=== PATIENT | male | born 1955 | race Caucasian/White ===

== ENCOUNTER 2017-09-28 08:39 | Inpatient (IN) | payer BC, OTHER ==
[~2017-09-28] VITALS: Ht 172.7 cm; Wt 116.5 kg
[2017-09-28] VITALS (11 sets, daily range): BP systolic 141–220; BP diastolic 81–122; PULSE 62–173; RESP 18–20; TEMP 97.8–98.3; O2SAT 96–98
[~2017-09-28 08:39] MED LIST: ADVA100A; EZET10; GLIP5; GLUCTAB; LISI2.5T3
[2017-09-28] MEDS ORDERED: LEVO25TA4 PO ×2 (08:53)
[2017-09-28] MEDS ORDERED: LISI2.5T3 PO ×2 (08:53)
[2017-09-28] MEDS ORDERED: STATIN ×2 (08:53)
[2017-09-28] MEDS ORDERED: ADENOSINE IV SOLN 3 MG/ML 2 ML VIAL ONE ×2 (09:00)
[2017-09-28] MEDS ORDERED: ADENOSINE IV SOLN 3 MG/ML 2 ML VIAL IV PUSH ONE ×2 (09:15)
[2017-09-28] MEDS ORDERED: LABETALOL HCL 100 MG/20 ML VIAL IV PUSH ONE ×2 (09:15)
[2017-09-28] MEDS ORDERED: ASPIRIN 325 MG TAB PO ONE ×2 (09:15)
[2017-09-28] MEDS ORDERED: SODIUM CHLORIDE 0.9% FLUSH 10 ML FLUSH IVF PRN ×2 (09:15)
--- NOTE | 2017-09-28 09:22 | PD ---
HPI Chief Complaint: Cardiac Complaint Time Seen by Provider: 08:53 Travel History International Travel<30 days: No Contact w/Intl Traveler<30days: No Traveled to known affect area: No History of Present Illness HPI This patient was walking on the beach this morning. Around 8:00 he developed chest pain and a sense of racing heartbeat. Chest pain lasted about 30 minutes and resolved. He arrived here around 9 AM with tachycardia 170. He is not having active pain. He had no presyncopal symptoms. He has history of AR and had bypass surgery 9 years ago. He is noncompliant with therapy. He does not take his daily aspirin or other medications regularly. Cigars. 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 Duration of symptoms 1 hour. Symptoms moderately severe. No alleviating factors. No exacerbating factors. Not having cough or shortness of breath. PFSH Past Medical History High Cholesterol: Yes Hypertension: Yes Myocardial Infarction: Yes Thyroid Disease: Yes Past Surgical History Cardiac Surgery: Yes (QUADRUPLE BYPASS) Social History Alcohol Use: Yes Tobacco Use: No Substance Use: No Allergies-Medications (Allergen,Severity, Reaction): Coded Allergies: No Known Allergies (Verified Allergy, Mild, 09/28/17) Reported Meds & Prescriptions Reported Meds & Active Scripts Active Reported Levothyroxine (Levothyroxine Sodium) 25 Mcg Tab Unknown Dose PO DAILY [Statin] Lisinopril 2.5 Mg Tab Unknown Dose PO DAILY Review of Systems General / Constitutional: No: Fever Eyes: No: Visual changes HENT: No: Headaches Cardiovascular: Positive: Chest Pain or Discomfort, Palpitations, Tachycardia Respiratory: No: Shortness of Breath Gastrointestinal: No: Abdominal Pain Genitourinary: No: Dysuria Musculoskeletal: No: Pain Skin: No Rash Neurologic: No: Weakness Psychiatric: No: Depression Endocrine: No: Polydipsia Hematologic/Lymphatic: No: Easy Bruising Physical Exam Narrative GENERAL: Well-nourished, well-developed patient with a significant tachycardia . SKIN: Focused skin assessment reveals no rash and nodules. Skin is Warm and dry. HEAD: Atraumatic. Normocephalic. EYES: Pupils equal and round. No scleral icterus. No injection or drainage. ENT: No nasal bleeding or discharge. Mucous membranes pink and moist. NECK: Trachea midline. No JVD. CARDIOVASCULAR: Regular rate and rhythm. No murmur appreciated. He has extremely rapid tachycardia of 170 RESPIRATORY: No accessory muscle use. Clear to auscultation. Breath sounds equal bilaterally. GASTROINTESTINAL: Abdomen soft, non-tender, nondistended. Hepatic and splenic margins not palpable. MUSCULOSKELETAL: No obvious deformities. No clubbing. No cyanosis. No edema. NEUROLOGICAL: Awake and alert. No obvious cranial nerve deficits. Motor grossly within normal limits. Normal speech. PSYCHIATRIC: Appropriate mood and affect; insight and judgment normal. Data Data Last Documented VS Vital Signs Date Time Temp Pulse Resp B/P (MAP) Pulse Ox O2 Delivery O2 Flow Rate FiO2 09/28/17 11:07 65 18 148/82 (104) 98 Nasal Cannula 2.00 09/28/17 08:49 97.8 Orders Orders Adenosine Inj (Adenocard Inj) (09/28/17 09:00) Labetalol Inj (Trandate Inj) (09/28/17 09:15) Electrocardiogram (09/28/17 09:08) Basic Metabolic Panel (Bmp) (09/28/17 09:08) Ckmb (Isoenzyme) Profile (09/28/17 09:08) Complete Blood Count With Diff (09/28/17 09:08) Magnesium (Mg) (09/28/17 09:08) Prothrombin Time / Inr (Pt) (09/28/17 09:08) Act Partial Throm Time (Ptt) (09/28/17 09:08) Troponin I (09/28/17 09:08) Chest, Single Ap (09/28/17 09:08) Ecg Monitoring (09/28/17 09:08) Bilateral Bp Monitoring (09/28/17 09:08) Iv Access Insert/Monitor (09/28/17 09:08) Oximetry (09/28/17 09:08) Aspirin (Aspirin) (09/28/17 09:15) Sodium Chloride 0.9% Flush (Ns Flush) (09/28/17 09:15) Adenosine Inj (Adenocard Inj) (09/28/17 09:15) Thyroid Stimulating Hormone (09/28/17 11:03) Hepatic Functional Panel (09/28/17 11:03) Metoprolol Tartrate (Lopressor) (09/28/17 12:00) Echo 2d Comp With Doppler (09/28/17 ) Hemoglobin (Hgb) A1c (09/28/17 11:05) Admit Order (Ed Use Only) (09/28/17 11:15) Labs Laboratory Tests Test 09/28/17 09:10 White Blood Count 8.8 TH/MM3 Red Blood Count 5.03 MIL/MM3 Hemoglobin 15.9 GM/DL Hematocrit 46.0 % Mean Corpuscular Volume 91.5 FL Mean Corpuscular Hemoglobin 31.6 PG Mean Corpuscular Hemoglobin Concent 34.5 % Red Cell Distribution Width 13.1 % Platelet Count 205 TH/MM3 Mean Platelet Volume 8.3 FL Neutrophils (%) (Auto) 50.6 % Lymphocytes (%) (Auto) 35.8 % Monocytes (%) (Auto) 10.1 % Eosinophils (%) (Auto) 2.7 % Basophils (%) (Auto) 0.8 % Neutrophils # (Auto) 4.4 TH/MM3 Lymphocytes # (Auto) 3.2 TH/MM3 Monocytes # (Auto) 0.9 TH/MM3 Eosinophils # (Auto) 0.2 TH/MM3 Basophils # (Auto) 0.1 TH/MM3 CBC Comment DIFF FINAL Differential Comment Prothrombin Time 10.7 SEC Prothromb Time International Ratio 1.0 RATIO Activated Partial Thromboplast Time 30.1 SEC Blood Urea Nitrogen 17 MG/DL Creatinine 0.80 MG/DL Random Glucose 249 MG/DL Calcium Level 9.0 MG/DL Magnesium Level 2.1 MG/DL Sodium Level 137 MEQ/L Potassium Level 4.0 MEQ/L Chloride Level 103 MEQ/L Carbon Dioxide Level 25.3 MEQ/L Anion Gap 9 MEQ/L Estimat Glomerular Filtration Rate 97 ML/MIN Total Creatine Kinase 96 U/L Troponin I LESS THAN 0.02 NG/ML MDM Medical Decision Making Medical Screen Exam Complete: Yes Emergency Medical Condition: Yes Medical Record Reviewed: Yes Differential Diagnosis SVT, A. fib with RVR, ventricular tachycardia Narrative Course I have reviewed the patient's electronic medical record. There are no prior EKGs to compare Patient arrives with significant arrhythmia and chest pain complaint in the setting of significant CAD with bypass history IV placed Extended cardiac monitoring reveals sinus tachycardia at 170 with regular rhythm I reviewed his EKG which shows regular tachycardia, narrow complex, I think this is SVT I gave him 6 mg IV adenosine Within about 15 seconds he converted to a sinus rhythm I repeated a second EKG which shows a sinus rhythm at 92 I reviewed the chest x-ray which shows sternal wires but otherwise normal CBC is normal Metabolic profile is normal CK is normal Troponin is normal Coagulation studies are normal I gave him aspirin and a dose of IV labetalol for systolic blood pressure of 220 On reassessment his blood pressures in the 140s. He remains in sinus rhythm No longer critical requires admission to telemetry for evaluation of chest pain in the setting of significant CAD as well as arrhythmia I reviewed with the hospitalist will admit Critical Care Narrative Aggregate critical care time was 34 minutes. Time to perform other separately billable procedures was not included in the critical care time. My time did not include minutes spent treating any other patients simultaneously or on activities that did not directly contribute to the patient's treatment. The services I provided to this patient were to treat and/or prevent clinically significant deterioration that could result in: Cardiopulmonary arrest, myocardial damage, heart failure I provided critical care services requiring my management, as noted below: Chart data review, documentation time, medication orders and management, vital sign assessments/reviewing monitor data, ordering and reviewing lab tests, ordering and interpreting/reviewing x-rays and diagnostic studies, care of the patient and discussion of the patient with the admitting physicians. Diagnosis Primary Impression: Chest pain Qualified Codes: I20.9 - Angina pectoris, unspecified Additional Impressions: SVT (supraventricular tachycardia) Coronary artery disease due to calcified coronary lesion Admitting Information Admitting Physician Requests: Cash Mcbride MD Sep 28, 2017 09:22
[2017-09-28 09:23] LABS: AUTOMATED NEUTROPHIL # 4.4 TH/MM3 (1.8-7.7); BASOPHIL # 0.1 TH/MM3 (0-0.2); BASOPHIL % 0.8 % (0.0-2.0); EOSINOPHIL # 0.2 TH/MM3 (0-0.4); EOSINOPHIL % 2.7 % (0.0-4.0); HEMOGLOBIN 15.9 GM/DL (13.0-17.0); LYMPH % 35.8 % (9.0-44.0); LYMPHOCYTE # 3.2 TH/MM3 (1.0-4.8); MEAN CELL VOLUME 91.5 FL (80.0-100.0); MEAN CORPUSCULAR HEMOGLOBIN 31.6 PG (27.0-34.0); MEAN CORPUSCULAR HGB CONC 34.5 % (32.0-36.0); MEAN PLATELET VOLUME 8.3 FL (7.0-11.0); MONO % 10.1 % (0.0-8.0); MONOCYTE # 0.9 TH/MM3 (0-0.9); NEUT % 50.6 % (16.0-70.0); PLATELET COUNT 205 TH/MM3 (150-450); RED BLOOD COUNT 5.03 MIL/MM3 (4.50-5.90); RED CELL DISTRIBUTION WIDTH 13.1 % (11.6-17.2); WHITE BLOOD COUNT 8.8 TH/MM3 (4.0-11.0)
--- NOTE | 2017-09-28 09:35 | RADRPT ---
EXAM DATE/TIME: 09/28/2017 09:17 [facility] COMPARISON: No previous studies available for comparison. INDICATIONS : Chest pain today MEDICAL HISTORY : Diabetes mellitus type II. SURGICAL HISTORY : CABG. ENCOUNTER: Initial ACUITY: 1 day PAIN SCORE: 3/10 LOCATION: Bilateral chest FINDINGS: A single view of the chest demonstrates the lungs to be symmetrically aerated without evidence of mas s, infiltrate or effusion. The cardiomediastinal contours are unremarkable. Osseous structures are intact. CONCLUSION: Normal examination. Numerous sternal wires. Onesimo Valdez MD on September 28, 2017 at 9:32 Board Certified Radiologist. This report was verified electronically.
[2017-09-28 09:43] LABS: PROTHROMBIN TIME - PATIENT 10.7 SEC (9.8-11.6)
[2017-09-28 09:49] LABS: BICARBONATE 25.3 MEQ/L (21.0-32.0); GLUCOSE,RANDOM 249 MG/DL (74-106); MAGNESIUM 2.1 MG/DL (1.5-2.5)
[2017-09-28 09:53] LABS: GLOMERULAR FILTRATION RATE 97 ML/MIN (>89)
[2017-09-28 09:54] LABS: CHLORIDE 103 MEQ/L (98-107); SODIUM (NA) 137 MEQ/L (136-145)
[2017-09-28 09:55] LABS: BLOOD UREA NITROGEN 17 MG/DL (7-18)
[2017-09-28 09:57] LABS: TROPONIN I LESS THAN 0.02 NG/ML (0.02-0.05)
[2017-09-28] MEDS ORDERED: MAGNESIUM HYDROXIDE SUSP 30 ML CUP PO PRN ×2 (11:15)
[2017-09-28] MEDS ORDERED: ONDANSETRON HCL 4 MG/2 ML VIAL IVP PRN ×2 (11:15)
[2017-09-28] MEDS ORDERED: NALOXONE HCL 0.4 MG/ML AMP IV PUSH PRN ×2 (11:15)
[2017-09-28] MEDS ORDERED: BISACODYL 10 MG SUPP RECTAL PRN ×2 (11:15)
[2017-09-28] MEDS ORDERED: ACETAMINOPHEN 325 MG TAB PO PRN ×2 (11:15)
[2017-09-28] MEDS ORDERED: SENNOSIDES 8.6 MG TAB PO PRN ×2 (11:15)
[2017-09-28] MEDS ORDERED: LACTULOSE SYRUP 20 GM/30 ML CUP PO PRN ×2 (11:15)
[2017-09-28] MEDS ORDERED: SODIUM CHLORIDE 0.9% FLUSH 10 ML FLUSH IV FLUSH PRN ×2 (11:15)
[2017-09-28 11:32] LABS: ALBUMIN 3.8 GM/DL (3.4-5.0)
[2017-09-28 11:34] LABS: DIRECT BILIRUBIN ADULT 0.2 MG/DL (0.0-0.2)
[2017-09-28 11:36] LABS: INDIRECT BILIRUBIN 0.9 MG/DL (0.0-0.8); TOTAL BILIRUBIN ADULT 1.1 MG/DL (0.2-1.0); TOTAL PROTEIN 7.9 GM/DL (6.4-8.2)
[2017-09-28] MEDS: METOPROLOL TARTRATE 25 MG TAB PO SCH ×4 (11:55→18:53)
[2017-09-28] MEDS ORDERED: ENOXAPARIN SODIUM 40 MG/0.4 ML SYRINGE SQ SCH ×2 (12:00)
--- NOTE | 2017-09-28 13:17 | EKG ---
Date Performed: 09/28/2017 Time Performed: 08:46:36 PTAGE: 62 years EKG: SUPRAVENTRICULAR TACHYCARDIA NONSPECIFIC INTRAVENTRICULAR CONDUCTION DELAY NONSPECIFIC ST A BNORMALITY ABNORMAL ECG PREVIOUS TRACING : 08/19/2007 14.11 Compared to previous tracing, supraventricular tachycardia has replaced Sinus rhythm , heart rate has increased, nonspecific ST abnormality is now present. DOCTOR: Cornelius Fitch Interpretating Date/Time 09/28/2017 13:16:56
[2017-09-28] MEDS ORDERED: SITA50 PO ×2 (15:07)
[2017-09-28] MEDS ORDERED: CHOL1CAP61 PO ×2 (15:07)
[2017-09-28] MEDS ORDERED: GLIM4TAB PO ×2 (15:07)
[2017-09-28] MEDS ORDERED: METO25TA3 PO ×2 (15:07)
[2017-09-28] MEDS ORDERED: SIMV80TA PO ×2 (15:07)
[2017-09-28] MEDS ORDERED: LEVO150T7 PO ×2 (15:14)
--- NOTE | 2017-09-28 15:51 | EKG ---
Date Performed: 09/28/2017 Time Performed: 09:11:38 PTAGE: 62 years EKG: Sinus rhythm NORMAL ECG PREVIOUS TRACING : 09/28/2017 08.46 Compared to previous tracing, sinus rhythm has replaced sup raventricular tachycardia. DOCTOR: Cornelius Fitch Interpretating Date/Time 09/28/2017 15:49:53
--- NOTE | 2017-09-28 16:06 | HHI.HP ---
[facility] Service [facility] Primary Care Physician Malik Jordan D.O. Admission Diagnosis Chest pain, CAD,SVT Diagnoses: (1) Chest pain Diagnosis: Secondary (2) SVT (supraventricular tachycardia) Diagnosis: Principal Chief Complaint: Chest pain Travel History International Travel<30 Days: No Contact w/Intl Traveler <30 Da: No Traveled to Known Affected Are: No History of Present Illness Written by Mima Hodges, acting as scribe for Dr. Cruz on 09/28/17 at 15: 57. Mr. Duong is a 62-year-old male patient with a known medical history of hypercholesteremia, hypertension and thyroid disease who presented to the ED with complaints of palpitations. Patient states that he was out walking the dog and all of a sudden he noticed his heart racing. He states his heart will beat fast and then will randomly go away. He states that this has happened often over the years but has become more frequent occurring weekly for the past couple weeks. Denies any recent illness including fever, chills, cough, headache , dizziness, abdominal pain, n/v/d or dysuria. Patient admits to having a quadruple bypass 9 years ago. He is noncompliant with therapy, states he has forgets to take his aspirin. Admits to smoking 1 cigar a night. 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 Review of Systems Constitutional: DENIES: Fever, Chills, Dizziness Endocrine: DENIES: Polyuria Eyes: DENIES: Blurred vision, Eye pain Ears, nose, mouth, throat: DENIES: Throat pain Respiratory: DENIES: Cough, Shortness of breath Cardiovascular: COMPLAINS OF: Chest pain, Palpitations Gastrointestinal: DENIES: Abdominal pain, Black stools, Constipation, Nausea, Vomiting Genitourinary: DENIES: Dysuria Musculoskeletal: DENIES: Joint pain Psychiatric: DENIES: Anxiety Except as stated in HPI: all other systems reviewed are Neg Past Family Social History Past Medical History Hyperlipidemia Hypertension Thyroid disease CAD with history of CABG, quadruple bypass Past Surgical History CABG Quadruple bypass Reported Medications Active Reported Levothyroxine (Levothyroxine Sodium) 150 Mcg Tab 150 Mcg PO DAILY Metoprolol Tartrate 25 Mg Tab 25 Mg PO DAILY Januvia (Sitagliptin Phosphate) 50 Mg Tab 50 Mg PO DAILY Glimepiride 4 Mg Tab 4 Mg PO BIDAC Vitamin D3 Ultra Strength (Cholecalciferol) 5,000 Unit Cap 5,000 Units PO DAILY Simvastatin 80 Mg Tab 80 Mg PO DAILY Allergies: Coded Allergies: No Known Allergies (Verified Allergy, Mild, 09/28/17) Active Ordered Medications Current Medications Medications (Trade) Dose Ordered Sig/Mia Route Start Time Stop Time Status Last Admin (Lopressor) 25 mg Q8HR PO 09/28/17 12:00 09/28/17 11:55 (NS Flush) 2 ml UNSCH PRN IV FLUSH 09/28/17 11:15 (NS Flush) 2 ml BID IV FLUSH 09/28/17 21:00 (Tylenol) 650 mg Q4H PRN PO 09/28/17 11:15 (Zofran Inj) 4 mg Q6H PRN IVP 09/28/17 11:15 (Lovenox Inj) 40 mg Q24H SQ 09/28/17 12:00 09/28/17 11:56 (Narcan Inj) 0.4 mg UNSCH PRN IV PUSH 09/28/17 11:15 (Milk Of Magnesia Liq) 30 ml Q12H PRN PO 09/28/17 11:15 (Senokot) 17.2 mg Q12H PRN PO 09/28/17 11:15 (Dulcolax Supp) 10 mg DAILY PRN RECTAL 09/28/17 11:15 (Lactulose Liq) 30 ml DAILY PRN PO 09/28/17 11:15 Family History Father had a history of CHF. Social History Admits to smoking 1 cigar a night. Admits to drinking 2 martinis per night. Denies any illicit drug use. Physical Exam Vital Signs Vital Signs Date Time Temp Pulse Resp B/P (MAP) Pulse Ox O2 Delivery O2 Flow Rate FiO2 09/28/17 12:50 97.8 68 20 166/81 (109) 97 09/28/17 12:14 09/28/17 11:07 65 18 148/82 (104) 98 Nasal Cannula 2.00 09/28/17 10:16 68 20 144/89 (107) 98 Nasal Cannula 2.00 09/28/17 09:25 77 20 141/88 (105) 98 Nasal Cannula 2.00 156/91 (112) 09/28/17 09:23 98 Nasal Cannula 2.00 09/28/17 09:02 114 20 220/109 (146) 98 Nasal Cannula 2.00 09/28/17 09:01 172 20 193/114 (140) 97 2.00 09/28/17 08:49 97.8 173 20 166/122 (137) 97 Physical Exam GENERAL: This is a well-nourished, well-developed male patient sitting on side of bed in no apparent distress. SKIN: No rashes, ecchymoses or lesions. Warm and dry. HEENT: Atraumatic. Normocephalic. Pupils equal round and reactive. Extraocular motions intact. No scleral icterus. No injection or drainage. Nose without bleeding. Airway patent. NECK: Trachea midline. No JVD. Supple. CARDIOVASCULAR: Regular rate and rhythm without murmurs, gallops, or rubs. RESPIRATORY: Clear to auscultation. Breath sounds equal bilaterally. No wheezes , rales, or rhonchi. GASTROINTESTINAL: Abdomen soft, non-tender, nondistended. No guarding. MUSCULOSKELETAL: Extremities without clubbing, cyanosis, or edema. No joint tenderness, effusion, or edema noted. NEUROLOGICAL: Awake and alert. Cranial nerves II through XII intact. Motor and sensory grossly within normal limits. Five out of 5 muscle strength in all muscle groups. Normal speech. Laboratory Laboratory Tests Test 09/28/17 09:10 09/28/17 14:47 White Blood Count 8.8 Red Blood Count 5.03 Hemoglobin 15.9 Hematocrit 46.0 Mean Corpuscular Volume 91.5 Mean Corpuscular Hemoglobin 31.6 Mean Corpuscular Hemoglobin Concent 34.5 Red Cell Distribution Width 13.1 Platelet Count 205 Mean Platelet Volume 8.3 Neutrophils (%) (Auto) 50.6 Lymphocytes (%) (Auto) 35.8 Monocytes (%) (Auto) 10.1 Eosinophils (%) (Auto) 2.7 Basophils (%) (Auto) 0.8 Neutrophils # (Auto) 4.4 Lymphocytes # (Auto) 3.2 Monocytes # (Auto) 0.9 Eosinophils # (Auto) 0.2 Basophils # (Auto) 0.1 CBC Comment DIFF FINAL Differential Comment Prothrombin Time 10.7 Prothromb Time International Ratio 1.0 Activated Partial Thromboplast Time 30.1 Blood Urea Nitrogen 17 Creatinine 0.80 Random Glucose 249 Calcium Level 9.0 Magnesium Level 2.1 Sodium Level 137 Potassium Level 4.0 Chloride Level 103 Carbon Dioxide Level 25.3 Anion Gap 9 Estimat Glomerular Filtration Rate 97 Total Bilirubin 1.1 Direct Bilirubin 0.2 Indirect Bilirubin 0.9 Aspartate Amino Transf (AST/SGOT) 74 Alanine Aminotransferase (ALT/SGPT) 72 Alkaline Phosphatase 124 Total Creatine Kinase 96 Troponin I LESS THAN 0.02 0.35 Total Protein 7.9 Albumin 3.8 Thyroid Stimulating Hormone 3rd Gen 2.670 Result Diagram: 09/28/1710 09/28/17909 Imaging Last Impressions Chest X-Ray 09/28/17907 Signed Impressions: Service Date/Time: Thursday, September 28, 2017 09:17 - CONCLUSION: Normal examination. Numerous sternal wires. MD Airam Anderson VTE Risk Assessment Caprini VTE Risk Assessment: Mod/High Risk (score >= 2) Caprini Risk Assessment Model Point Value = 1 Point Value = 2 Point Value = 3 Point Value = 5 Age 41-60 Minor surgery BMI > 25 kg/m2 Swollen legs Varicose veins or History of unexplained or recurrent spontaneous Oral contraceptives or hormone replacement Sepsis (< 1 month) Serious lung disease, including pneumonia (< 1 month) Abnormal pulmonary function Acute myocardial infarction Congestive heart failure (< 1 month) History of inflammatory bowel disease Medical patient at bed rest Age 61-74 Arthroscopic surgery Major open surgery (> 45 min) Laparoscopic surgery (> 45 min) Malignancy Confined to bed (> 72 hours) Immobilizing plaster cast Central venous access Age >= 75 History of VTE Family history of VTE Factor V Leiden Prothrombin [id number] Lupus anticoagulant Anticardiolipin antibodies Elevated serum homocysteine Heparin-induced thrombocytopenia Other congenital or acquired thrombophilia Stroke (< 1 month) Elective arthroplasty Hip, pelvis, or leg fracture Acute spinal cord injury (< 1 month) Prophylaxis Regimen Total Risk Factor Score Risk Level Prophylaxis Regimen 0-1 Low Early ambulation 2 Moderate Order ONE of the following: *Sequential Compression Device (SCD) *Heparin 5000 units SQ BID 3-4 Higher Order ONE of the following medications: *Heparin 5000 units SQ TID *Enoxaparin/Lovenox 40 mg SQ daily (WT < 150 kg, CrCl > 30 mL/min) *Enoxaparin/Lovenox 30 mg SQ daily (WT < 150 kg, CrCl > 10-29 mL/min) *Enoxaparin/Lovenox 30 mg SQ BID (WT < 150 kg, CrCl > 30 mL/min) AND/OR *Sequential Compression Device (SCD) 5 or more Highest Order ONE of the following medications: *Heparin 5000 units SQ TID (Preferred with Epidurals) *Enoxaparin/Lovenox 40 mg SQ daily (WT < 150 kg, CrCl > 30 mL/min) *Enoxaparin/Lovenox 30 mg SQ daily (WT < 150 kg, CrCl > 10-29 mL/min) *Enoxaparin/Lovenox 30 mg SQ BID (WT < 150 kg, CrCl > 30 mL/min) AND *Sequential Compression Device (SCD) Assessment and Plan Assessment and Plan Mr. Duong is a 62-year-old male patient with a known medical history of hypercholesteremia, hypertension and thyroid disease who presented to the ED with complaints of palpitations. Patient states that he was out walking the dog and all of a sudden he noticed his heart racing. He states his heart will beat fast and then will randomly go away. He states that this has happened often over the years but has become more frequent the past couple weeks. Chest pain and palpitations suspect secondary to SVT CAD with history of quadruple bypass - EKG reviewed showing SVT with HR 169. Adenosine IV given in ED. Second EKG NSR, heart rate controlled with no arrhythmia. Currently on continuous cardiac telemetry, NSR with controlled HR. Continue to monitor. - CXR reviewed showing no acute disease and normal examination. - Serial EKGs and serial troponins have been ordered for ruling out purposes. Initial troponin flat, second set 0.35. Absence of chest pain or pressure at this time. Awaiting third set. Follow. - 2-D ECHO ordered and pending. Follow. - Will start on aspirin daily. Start on Metoprolol 25 mg PO q8hr. - Cardiology consulted, appreciate further input and recommendations. - CBC reviewed essentially unremarkable. Hypertension, chronic: BP significantly elevated on presentation. Given Labetalol IV in ED. Will continue home Lisinopril. Hypothyroidism, chronic: TSH ordered. Will continue home Levothyroxine for now. Hyperlipidemia, chronic: Continue home Simvastatin. Elevated random glucose: Random glucose 249. Hemoglobin a1C ordered and pending. Follow. Patient denies any history of DM. Transaminase suspect secondary to type 2 demand ischemia: Hepatic panel ordered. Will follow. Tobacco use: Encouraged cessation, patient counselled. DVT Prophylaxis: SCDs. Lovenox. This note was transcribed by scribe. Alvarez, Dr. Melissa Cruz personally performed the history, physical exam, and medical decision making; and confirmed the accuracy of the information in the transcribed note. Authenticated by Dr. Melissa Cruz on 09/29/17 at 09:44. Physician Certification 2 Midnight Certification Type: Admission for Inpatient Services Order for Inpatient Services The services are ordered in accordance with Medicare regulations or non- Medicare payer requirements, as applicable. In the case of services not specified as inpatient-only, they are appropriately provided as inpatient services in accordance with the 2-midnight benchmark. Estimated LOS (days): 2 2 days is the estimated time the patient will need to remain in the hospital, assuming treatment plan goals are met and no additional complications. Post-Hospital Plan: Home Problem Qualifiers (1) Chest pain: Qualified Codes: I20.9 - Angina pectoris, unspecified Mima Hodges Sep 28, 2017 16:06 Melissa Cruz MD Sep 29, 2017 09:44
[2017-09-28] MEDS ORDERED: TEMAZEPAM 15 MG CAP PO ONE ×2 (20:30)
[2017-09-28] MEDS: SODIUM CHLORIDE 0.9% FLUSH 10 ML FLUSH IV FLUSH SCH ×2 (20:32)
--- NOTE | 2017-09-28 21:07 | EKG ---
Date Performed: 09/28/2017 Time Performed: 20:47:30 PTAGE: 62 years EKG: Sinus rhythm NONSPECIFIC INTRAVENTRICULAR CONDUCTION DELAY MINIMAL ST DEPRESSION PROLONGED QT INTERVAL ABNORMAL E CG PREVIOUS TRACING : 09/28/2017 15.06 No significant change from previous tracing noted. DOCTOR: Cornelius Fitch Interpretating Date/Time 09/28/2017 21:05:07
--- NOTE | 2017-09-28 21:14 | EKG ---
Date Performed: 09/28/2017 Time Performed: 15:06:53 PTAGE: 62 years EKG: Sinus rhythm INCOMPLETE RIGHT BUNDLE BRANCH BLOCK NONSPECIFIC T-WAVE ABNORMALITY BORDERLINE ECG PREVIOUS TRACING : 09/28/2017 09.11 No significant change from previous tracing noted. DOCTOR: Cornelius Fitch Interpretating Date/Time 09/28/2017 21:12:22
[2017-09-29] VITALS: BP 134/98; PULSE 97; RESP 20; TEMP 98.1; O2SAT 97
[2017-09-29 04:00] VITALS: BP 176/88; PULSE 71; RESP 20; TEMP 97.7; O2SAT 97
[2017-09-29] MEDS: METOPROLOL TARTRATE 25 MG TAB PO SCH ×2 (05:16)
[2017-09-29] MEDS ORDERED: LEVOTHYROXINE SODIUM 150 MCG TAB PO SCH ×2 (06:00)
[2017-09-29 07:37] VITALS: PULSE 57
--- NOTE | 2017-09-29 07:50 | PD.CARD.PN ---
Subjective Subjective Remarks Pt feels well, currently asymptomatic. Objective Medications Administered Medications Medications (Trade) Dose Ordered Sig/Mia Route PRN Reason Start Time Stop Time Status Last Admin Dose Admin Metoprolol Tartrate (Lopressor) 25 mg Q8HR PO 09/28/17 12:00 09/29/17 05:16 Sodium Chloride (NS Flush) 2 ml BID IV FLUSH 09/28/17 21:00 09/28/17 20:32 Enoxaparin Sodium (Lovenox Inj) 40 mg Q24H SQ 09/28/17 12:00 09/28/17 11:56 Levothyroxine Sodium (Synthroid) 150 mcg DAILY@0600 PO 09/29/17 06:00 09/29/17 05:16 Current Medications Medications (Trade) Dose Ordered Sig/Mia Route Start Time Stop Time Status Last Admin (Lopressor) 25 mg Q8HR PO 09/28/17 12:00 09/29/17 05:16 (NS Flush) 2 ml UNSCH PRN IV FLUSH 09/28/17 11:15 (NS Flush) 2 ml BID IV FLUSH 09/28/17 21:00 09/28/17 20:32 (Tylenol) 650 mg Q4H PRN PO 09/28/17 11:15 (Zofran Inj) 4 mg Q6H PRN IVP 09/28/17 11:15 (Lovenox Inj) 40 mg Q24H SQ 09/28/17 12:00 09/28/17 11:56 (Narcan Inj) 0.4 mg UNSCH PRN IV PUSH 09/28/17 11:15 (Milk Of Magnesia Liq) 30 ml Q12H PRN PO 09/28/17 11:15 (Senokot) 17.2 mg Q12H PRN PO 09/28/17 11:15 (Dulcolax Supp) 10 mg DAILY PRN RECTAL 09/28/17 11:15 (Lactulose Liq) 30 ml DAILY PRN PO 09/28/17 11:15 (Ecotrin Ec) 81 mg DAILY PO 09/29/17 08:00 (Synthroid) 150 mcg DAILY@0600 PO 09/29/17 06:00 09/29/17 05:16 (Lipitor) 40 mg DAILY PO 09/29/17 09:00 Vital Signs / I&O Vital Signs Date Time Temp Pulse Resp B/P (MAP) Pulse Ox O2 Delivery O2 Flow Rate FiO2 09/29/17 07:37 57 09/29/17 04:00 97.7 71 20 176/88 (117) 97 09/29/17 00:00 98.1 97 20 134/98 (110) 97 09/28/17 20:00 98.3 62 20 168/85 (112) 96 09/28/17 20:00 74 09/28/17 17:24 65 174/90 (118) 09/28/17 15:50 98.1 65 20 173/90 (117) 09/28/17 12:50 97.8 68 20 166/81 (109) 97 09/28/17 12:14 09/28/17 11:07 65 18 148/82 (104) 98 Nasal Cannula 2.00 09/28/17 10:16 68 20 144/89 (107) 98 Nasal Cannula 2.00 09/28/17 09:25 77 20 141/88 (105) 98 Nasal Cannula 2.00 156/91 (112) 09/28/17 09:23 98 Nasal Cannula 2.00 09/28/17 09:02 114 20 220/109 (146) 98 Nasal Cannula 2.00 09/28/17 09:01 172 20 193/114 (140) 97 2.00 09/28/17 08:49 97.8 173 20 166/122 (137) 97 I/O 09/28/17 09/28/17 09/28/17 09/29/17 09/29/17 09/29/17 07:00 15:00 23:00 07:00 15:00 23:00 Intake Total 631 ml 720 ml Balance 631 ml 720 ml Intake Oral 631 ml 720 ml # Voids 3 # Bowel Movements 0 Physical Exam GENERAL: This is a well-nourished, well-developed patient, in no apparent distress. CARDIOVASCULAR: Regular rate and rhythm without murmurs, gallops, or rubs. RESPIRATORY: Clear to auscultation. Breath sounds equal bilaterally. No wheezes , rales, or rhonchi. GASTROINTESTINAL: Abdomen soft, non-tender, nondistended. Normal active bowel sounds MUSCULOSKELETAL: Extremities without clubbing, cyanosis, or edema. NEURO: Alert & Oriented x4 to person, place, time, situation. Moves all ext x4 Laboratory Laboratory Tests Test 09/28/17 09:10 09/28/17 14:47 09/28/17 20:40 White Blood Count 8.8 TH/MM3 Red Blood Count 5.03 MIL/MM3 Hemoglobin 15.9 GM/DL Hematocrit 46.0 % Mean Corpuscular Volume 91.5 FL Mean Corpuscular Hemoglobin 31.6 PG Mean Corpuscular Hemoglobin Concent 34.5 % Red Cell Distribution Width 13.1 % Platelet Count 205 TH/MM3 Mean Platelet Volume 8.3 FL Neutrophils (%) (Auto) 50.6 % Lymphocytes (%) (Auto) 35.8 % Monocytes (%) (Auto) 10.1 % Eosinophils (%) (Auto) 2.7 % Basophils (%) (Auto) 0.8 % Neutrophils # (Auto) 4.4 TH/MM3 Lymphocytes # (Auto) 3.2 TH/MM3 Monocytes # (Auto) 0.9 TH/MM3 Eosinophils # (Auto) 0.2 TH/MM3 Basophils # (Auto) 0.1 TH/MM3 CBC Comment DIFF FINAL Differential Comment Prothrombin Time 10.7 SEC Prothromb Time International Ratio 1.0 RATIO Activated Partial Thromboplast Time 30.1 SEC Blood Urea Nitrogen 17 MG/DL Creatinine 0.80 MG/DL Random Glucose 249 MG/DL Calcium Level 9.0 MG/DL Magnesium Level 2.1 MG/DL Sodium Level 137 MEQ/L Potassium Level 4.0 MEQ/L Chloride Level 103 MEQ/L Carbon Dioxide Level 25.3 MEQ/L Anion Gap 9 MEQ/L Estimat Glomerular Filtration Rate 97 ML/MIN Total Bilirubin 1.1 MG/DL Direct Bilirubin 0.2 MG/DL Indirect Bilirubin 0.9 MG/DL Aspartate Amino Transf (AST/SGOT) 74 U/L Alanine Aminotransferase (ALT/SGPT) 72 U/L Alkaline Phosphatase 124 U/L Total Creatine Kinase 96 U/L Troponin I LESS THAN 0.02 NG/ML 0.35 NG/ML 0.22 NG/ML Total Protein 7.9 GM/DL Albumin 3.8 GM/DL Thyroid Stimulating Hormone 3rd Gen 2.670 uIU/ML Imaging Last 24 hours Impressions Chest X-Ray 09/28/17 0908 Signed Impressions: Service Date/Time: Thursday, September 28, 2017 09:17 - CONCLUSION: Normal examination. Numerous sternal wires. Onesimo Valdez MD Assessment and Plan Problem List: (1) SVT (supraventricular tachycardia) ICD Codes: I47.1 - Supraventricular tachycardia; I25.84 - Coronary atherosclerosis due to calcified coronary lesion Status: Acute Plan: Currently in sinus rhythm, on BB (2) Troponin level elevated ICD Codes: R74.8 - Abnormal levels of other serum enzymes Plan: Likely due to heart rate/bp; nuc stress pending; if significant ischemia will probably need cath but pt currently says he wouldn't do this as an inpt (3) CAD (coronary artery disease) ICD Codes: I25.10 - Atherosclerotic heart disease of [place] coronary artery without angina pectoris Assessment and Plan Ok to go home and f/u with Dr. doss in 1-2 weeks if nuc stress non-ischemic. Connor Howard MD Sep 29, 2017 07:50
[2017-09-29 08:00] VITALS: BP 176/98; PULSE 56; RESP 16; TEMP 96.2; O2SAT 95
[2017-09-29] MEDS: SODIUM CHLORIDE 0.9% FLUSH 10 ML FLUSH IV FLUSH SCH ×2 (08:22)
[2017-09-29] MEDS: ASPIRIN EC 81 MG TABEC PO SCH ×4 (08:22→09:00)
[2017-09-29] MEDS ORDERED: ATORVASTATIN 40 MG TAB PO SCH ×2 (09:00)
--- NOTE | 2017-09-29 09:41 | MB ---
cc: HERRERA VIDES DO DATE OF CONSULTATION September 28, 2017 REASON FOR CONSULTATION SVT. HISTORY OF PRESENT ILLNESS Rashard Duong is a pleasant 62-year-old male who presented to [facility] Emergency Room on September 28, 2017, with the complaint of palpitations. He states that he was out walking his dog and all of a sudden he noticed his heart racing. He has had a few episodes of this over the past few years but normally would randomly go away after sitting in his car and having the air conditioner below on him. Over the past few weeks he has noticed it more and more and so he presented to the emergency room. Upon arrival he was found to be in SVT and was given adenosine which broke into normal sinus rhythm. He denies chest pain or shortness of breath with the episodes. In speaking to him about his medicines, he should be taking his metoprolol tartrate daily but has not been taking it. During the week from Friday through when he is working, he is on a schedule and takes his medications but on the weekends he tends to this it. He states that he has not taken his metoprolol tartrate since . PAST MEDICAL HISTORY 1. Hyperlipidemia. 2. Hypertension. 3. Thyroid disease. 4. Coronary artery disease. PAST SURGICAL HISTORY CABG x4. ALLERGIES No known drug allergies. MEDICATIONS 1. Zocor 80 mg daily. 2. Metoprolol tartrate 25 mg daily. 3. Januvia 50 mg daily. 4. Glimepiride 4 mg b.i.d. 5. Synthroid 150 mcg daily. FAMILY HISTORY Father had a history of congestive heart failure. Denies sudden cardiac within the family. SOCIAL HISTORY The patient smokes one cigar per night. Admits to drinking two Martinis per night. Denies drug abuse. REVIEW OF SYSTEMS 14-systems were reviewed including osteopathic pertinent positives and negatives above, otherwise negative. PHYSICAL EXAMINATION VITAL SIGNS: Temperature 97.8, heart rate 68, blood pressure 166/80, respirations 20, pulse ox 97% on 2 liters. IN GENERAL: The patient appears well, in no acute distress, alert and awake and oriented x3. Extraocular muscles intact. Mucous membranes moist. NECK: Supple. No JVD at 45 degrees. No carotid bruits heard bilaterally. Carotid upstroke is brisk in nature. HEART: Regular in rate and rhythm. Positive first and second heart sounds with no noted murmurs, gallops or rubs. LUNGS: Clear to auscultation bilaterally. No wheezes, rales or rhonchi. ABDOMEN: Soft, nontender, nondistended. No organomegaly noted. EXTREMITIES: no clubbing, cyanosis or edema. Femoral and distal pulses intact bilaterally. NEUROLOGICALLY: No focal deficits. SKIN: Warm, dry and intact. OSTEOPATHIC: No kyphoscoliosis, lordosis or paraspinal tender points. LABORATORY WORK Hemoglobin 15.9, hematocrit 46.0, platelets 205. Potassium 4.0, BUN 17, creatinine 0.8. Troponin 0.35. TSH 2.67. ELECTROCARDIOGRAM (September 28, 2017) Supraventricular tachycardia, most likely AVNRT with nonspecific ST-T wave changes. ELECTROCARDIOGRAM (September 28, 2017 at 09:11) Normal sinus rhythm, no acute ST-T wave changes. IMPRESSIONS 1. 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 2. Mildly elevated troponin. 3. History of coronary artery disease with a history of CABG x4. 4. Hypertension. 5. Hypothyroidism. 6. Hyperlipidemia. RECOMMENDATIONS 1. 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 He would like to attempt to treat this medically and not undergo ablation if possible. We will plan on increasing his metoprolol tartrate to 25 mg twice a day and instructed him on taking it every day. 2. He does have a mildly elevated troponin. He will be kept n.p.o. after midnight and if troponin is relatively stable, undergo pharmacologic nuclear stress testing. If he does have a significant elevation of his troponin, consideration could be made for cardiac catheterization. 3. Will check a 2-D echo to look his overall left ventricular function, cardiac structure and possible valvopathies. 4. Due to his history of coronary artery disease, he will be placed on aspirin 81 mg daily. 5. Further recommendations will be made based on the hospital course. Thank you for allowing me to see Rashard Duong. If there are any questions, please do not hesitate to call. Herrera Vides DO VGP/SSB /9:34 PM /10:34 AM
--- NOTE | 2017-09-29 09:45 | HHI.PR ---
Subjective Remarks Heart rate control. No chest pain or palpitations. Objective Vitals Vital Signs Date Time Temp Pulse Resp B/P (MAP) Pulse Ox O2 Delivery O2 Flow Rate FiO2 09/29/17 08:00 96.2 56 16 176/98 (124) 95 09/29/17 07:37 57 09/29/17 04:00 97.7 71 20 176/88 (117) 97 09/29/17 00:00 98.1 97 20 134/98 (110) 97 09/28/17 20:00 98.3 62 20 168/85 (112) 96 09/28/17 20:00 74 09/28/17 17:24 65 174/90 (118) 09/28/17 15:50 98.1 65 20 173/90 (117) 09/28/17 12:50 97.8 68 20 166/81 (109) 97 09/28/17 12:14 09/28/17 11:07 65 18 148/82 (104) 98 Nasal Cannula 2.00 09/28/17 10:16 68 20 144/89 (107) 98 Nasal Cannula 2.00 I/O 09/28/17 09/28/17 09/28/17 09/29/17 09/29/17 09/29/17 07:00 15:00 23:00 07:00 15:00 23:00 Intake Total 631 ml 720 ml Balance 631 ml 720 ml Intake Oral 631 ml 720 ml # Voids 3 # Bowel Movements 0 Result Diagram: 09/28/17 0910 09/28/17 0910 Objective Remarks GENERAL: Well-nourished, well-developed patient. SKIN: Warm and dry. HEAD: Normocephalic. EYES: No scleral icterus. No injection or drainage. NECK: Supple, trachea midline. No JVD or lymphadenopathy. CARDIOVASCULAR: Regular rate and rhythm without murmurs, gallops, or rubs. RESPIRATORY: Breath sounds equal bilaterally. No accessory muscle use. GASTROINTESTINAL: Abdomen soft, non-tender, nondistended. EXTREMITIES: No cyanosis, or edema. NEUROLOGICAL: Awake, alert, and oriented x 3. Non-focal. A/P Problem List: (1) Chest pain ICD Code: R07.9 - Chest pain, unspecified Status: Acute (2) SVT (supraventricular tachycardia) ICD Code: I47.1 - Supraventricular tachycardia; I25.84 - Coronary atherosclerosis due to calcified coronary lesion Status: Acute Assessment and Plan Mr. Duong is a 62-year-old male patient with a known medical history of hypercholesteremia, hypertension and thyroid disease who presented to the ED with complaints of palpitations. Patient states that he was out walking the dog and all of a sudden he noticed his heart racing. He states his heart will beat fast and then will randomly go away. He states that this has happened often over the years but has become more frequent the past couple weeks. Chest pain and palpitations suspect secondary to SVT CAD with history of quadruple bypass - EKG reviewed showing SVT with HR 169. Adenosine IV given in ED. Second EKG NSR, heart rate controlled with no arrhythmia. Currently on continuous cardiac telemetry, NSR with controlled HR. Continue to monitor. - CXR reviewed showing no acute disease and normal examination. - Serial EKGs and serial troponins have been ordered for ruling out purposes. Initial troponin flat, second set 0.35. Absence of chest pain or pressure at this time. Awaiting third set. Follow. - 2-D ECHO ordered and pending. Follow. -Continue aspirin, continue Metoprolol 25 mg PO q8hr. - Cardiology consulted, appreciate further input and recommendations. Stress test pending. - CBC reviewed essentially unremarkable. Hypertension, chronic: BP significantly elevated on presentation. Given Labetalol IV in ED. continue lisinopril, metoprolol. Hypothyroidism, chronic: TSH within normal limits. Will continue home Levothyroxine. Hyperlipidemia, chronic: Continue home Simvastatin. Elevated random glucose: Random glucose 249. Hemoglobin a1C ordered and pending. Follow. Patient denies any history of DM. Transaminase suspect secondary to type 2 demand ischemia: Hepatic panel ordered. Will follow. Tobacco use: Encouraged cessation, patient counselled. DVT Prophylaxis: SCDs. Lovenox. Problem Qualifiers (1) Chest pain: Qualified Codes: I20.9 - Angina pectoris, unspecified Melissa Cruz MD Sep 29, 2017 09:45
[2017-09-29] MEDS ORDERED: REGADENOSON INJ 0.4 MG/5 ML SYR IV ONE ×2 (10:16)
--- NOTE | 2017-09-29 11:16 | RADRPT ---
EXAM DATE/TIME: 09/29/2017 09:54 [facility] COMPARISON: No previous studies available for comparison. INDICATIONS : Chest pain for 1 day. Abnormal EKG. Myocardial infarction. DOSE: 35 mCi Tc99m Myoview at stress. 11 mCi Tc99m Myoview at rest. 0.4 mg Lexiscan STRESS SYMPTOMS: Short of breath. EJECTION FRACTION: 61% MEDICAL HISTORY : Cardiovascular disease. Diabetes mellitus type 2. SURGICAL HISTORY : CABG ENCOUNTER: Initial ACUITY: 1 day PAIN SCALE: 3/10 LOCATION: Midsternal chest TECHNIQUE: The patient underwent pharmacologic stress with infusion of prescribed dose. Continuous ECG tracing was monitored during stress. Gated SPECT imaging was performed after stress and conventional SPECT i maging was performed at rest. The examination was performed on a SPECT/CT scanner, both attenuation and non-corrected datasets were reviewed. FINDINGS: DISTRIBUTION: Moderate gut activity does obscure the inferior wall. `Perfusion is much better at rest and stress and there is redistribution in the anterior lateral wall involving the large segment myocardium GATED STUDY: Normal wall motion in spite of the redistribution. CONCLUSION: Consistent with stress-induced ischemia anterior lateral wall. RISK CATEGORY: Low (<1% Annual Mortality Rate) Sahil Hernández MD FACR on September 29, 2017 at 11:12 Board Certified Radiologist. This report was verified electronically.
[2017-09-29] MEDS ORDERED: METO25TA3 PO ×2 (11:27)
[2017-09-29] MEDS ORDERED: ASPI-99 PO ×2 (11:27)
[2017-09-29 11:40] LABS: HEMOGLOBIN A1C 7.8 % (4.3-6.0)
--- NOTE | 2017-09-29 13:39 | ECHRPT ---
Indication: ATRIAL FIB AND FLUTTER CONCLUSIONS The left ventricular systolic function is normal with an estimated ejection fraction in the range of 55-60%. Trace mitral valve regurgitation. There is trace tricuspid valve regurgitation. BP: / HR: 256 Rhythm: MEASUREMENTS (Male / Female) Normal Values Technical Quality: 2D ECHO LV Diastolic Diameter PLAX 5.4 cm 4.2 - 5.9 / 3.9 - 5.3 cm LV Systolic Diameter PLAX 4.2 cm IVS Diastolic Thickness 1.2 cm 0.6 - 1.0 / 0.6 - 0.9 cm LVPW Diastolic Thickness 0.8 cm 0.6 - 1.0 / 0.6 - 0.9 cm LV Relative Wall Thickness 0.4 RV Internal Dim ED PLAX 1.8 cm LA Systolic Diameter LX 3.6 cm 3.0 - 4.0 / 2.7 - 3.8 cm DOPPLER Mitral E Point Velocity 84.9 cm/s Mitral A Point Velocity 85.9 cm/s Mitral E to A Ratio 1.0 TR Peak Velocity 216.0 cm/s TR Peak Gradient 18.7 mmHg FINDINGS LEFT VENTRICLE Normal left ventricular size. Wall thickness is measured at the upper limits of normal. The left ventricular systolic function is normal with an estimated ejection fraction in the range of 55-60%. There was limited left ventricular wall motion assessment due to poor endocardial visualization. RIGHT VENTRICLE Normal right ventricular size and systolic function. LEFT ATRIUM The left atrial size is normal. RIGHT ATRIUM The right atrial size is normal. ATRIAL SEPTUM Normal atrial septal thickness. AORTA The aortic root and proximal ascending aorta are normal in size on limited imaging. MITRAL VALVE Structurally normal mitral valve. Mitral annular calcification is present. Trace mitral valve regurgitation. No mitral valve stenosis. AORTIC VALVE Aortic valve sclerosis is present. Trileaflet aortic valve. No aortic valve regurgitation. No aortic valve stenosis. TRICUSPID VALVE Structurally normal tricuspid valve. No tricuspid valve stenosis. There is trace tricuspid valve regurgitation. PULMONARY VALVE The pulmonary valve is not well visualized. VESSELS The inferior vena cava is normal in size. PERICARDIUM No pericardial effusion. Herrera Fuentes DO (Electronically Signed) Final Date:29 September 2017 13:38
== END 2017-09-29 12:49 | disposition left against medical advice (07) | DRG 303 ==
LOC: PHED 08:39 → PHEDA 11:17 → PH3A 12:20
PROVIDERS: ADMIT Family Medicine; ATTEND Family Medicine
DX: I25.119 Atherosclerotic heart disease of native coronary artery with unspecified angina pectoris (principal); I10 Essential (primary) hypertension; I47.1 Supraventricular tachycardia; E03.9 Hypothyroidism, unspecified; I25.2 Old myocardial infarction; E78.00 Pure hypercholesterolemia, unspecified; R74.8 Abnormal levels of other serum enzymes; F17.290 Nicotine dependence, other tobacco product, uncomplicated; Z53.29 Procedure and treatment not carried out because of patient's decision for other reasons; Z91.19 Patient's noncompliance with other medical treatment and regimen; Z95.1 Presence of aortocoronary bypass graft
CPT/HCPCS: 71010; 78452; 80048; 80076; 82550; 83036; 83735; 84443; 84484; 85025; 85610; 85730; 93005; 93017; 93306; 96374; 96375; A9502; J0153; J1650; J2785

== ENCOUNTER 2017-10-10 07:13 | Day surgery (SDC) | payer OTHER ==
[~2017-10-10] VITALS: Ht 172.7 cm; Wt 104.3 kg
[~2017-10-10 07:13] MED LIST changes: -ADVA100A; +ASPI1TAB56 PO; +D-3-50003 PO; -EZET10; +GLIM4TAB PO; -GLIP5; -GLUCTAB; +LEVO150T7 PO; -LISI2.5T3; +METO25TA3 PO; +SIMV80TA PO; +SITA50 PO
[2017-10-10] MEDS ORDERED: IOHEXOL 350 MG/ML 100 ML BTL (for Cath Lab) OTHER ONE (07:14)
[2017-10-10] MEDS ORDERED: IOHEXOL 350 MG/ML 50 ML BTL (for Cath Lab) OTHER ONE (07:14)
[2017-10-10 08:43] LABS: AUTOMATED NEUTROPHIL # 4.7 TH/MM3 (1.8-7.7); BASOPHIL # 0.1 TH/MM3 (0-0.2); BASOPHIL % 1.3 % (0.0-2.0); EOSINOPHIL # 0.3 TH/MM3 (0-0.4); EOSINOPHIL % 3.4 % (0.0-4.0); HEMATOCRIT 43.6 % (39.0-51.0); HEMO FLAGS DIFF FINAL; LYMPH % 32.5 % (9.0-44.0); LYMPHOCYTE # 2.9 TH/MM3 (1.0-4.8); MEAN CELL VOLUME 92.5 FL (80.0-100.0); MEAN CORPUSCULAR HEMOGLOBIN 31.3 PG (27.0-34.0); MEAN CORPUSCULAR HGB CONC 33.8 % (32.0-36.0); MONO % 10.2 % (0.0-8.0); NEUT % 52.6 % (16.0-70.0); PLATELET COUNT 202 TH/MM3 (150-450); RED BLOOD COUNT 4.72 MIL/MM3 (4.50-5.90); RED CELL DISTRIBUTION WIDTH 13.4 % (11.6-17.2); WHITE BLOOD COUNT 8.9 TH/MM3 (4.0-11.0)
[2017-10-10 08:49] VITALS: BP 194/104; PULSE 57; RESP 18; TEMP 98.1; O2SAT 99
[2017-10-10 08:54] LABS: APTT (PATIENT) 29.6 SEC (24.3-30.1); PROTHROMBIN TIME - PATIENT 11.4 SEC (9.8-11.6)
[2017-10-10] MEDS ORDERED: ASPI-183 PO (08:56)
[2017-10-10] MEDS ORDERED: VITA100T65 PO (08:56)
[2017-10-10] MEDS ORDERED: NS 1000P @30 MLS/HR (KVO) IV SCH (09:00)
[2017-10-10 09:09] LABS: POTASSIUM 4.5 MEQ/L (3.5-5.1)
[2017-10-10] MEDS ORDERED: HEPARIN-NS/PF INJ 1,000 ML ONE (10:38)
[2017-10-10] MEDS ORDERED: HEPARIN SODIUM - IV 10,000 UNITS/10 ML VIAL ONE (10:44)
[2017-10-10] MEDS ORDERED: NITROGLYCERIN INJ 5 ML ONE (10:44)
[2017-10-10] MEDS ORDERED: VERAPAMIL HCL 5 MG/2 ML VIAL ONE (10:44)
[2017-10-10] MEDS ORDERED: MIDAZOLAM HCL 2 MG/2 ML VIAL ONE ×2 (10:44→11:41)
[2017-10-10] MEDS ORDERED: oxyCODONE/ACETAMINOPHEN 5 MG/325 MG TAB PO PRN ×2 (12:30)
[2017-10-10] MEDS ORDERED: SODIUM CHLOR 0.9% 250 ML INJ 250 ML IV PRN (12:30)
[2017-10-10] MEDS ORDERED: ATROPINE SULFATE 1 MG/ML VIAL IV PUSH PRN (12:30)
[2017-10-10] MEDS ORDERED: ONDANSETRON HCL 4 MG/2 ML VIAL IV PUSH PRN (12:30)
[2017-10-10] MEDS ORDERED: hydrALAZINE HCL 20 MG/ML VIAL IV PUSH PRN (12:30)
[2017-10-10] MEDS ORDERED: MISC INFORMATION XX ONE (12:30)
--- NOTE | 2017-10-10 12:32 | CATHPROC ---
[employer] HIS Report Study Information Study Number Admission Scheduled Start Study Start [id number] Oct 10 2017 7:13AM 10/10/2017 Oct 10 2017 10:42AM [facility] Cardiac Catheterization Admit Source Facility Department Other [facility] Physician and Clinical Staff Initial Herrera Almazan Cook Pressure Kathy Arguello,RN Cook Pressure Trent RN, Lenny Recorder Kathy Julian,RT(R) Scrub Florence PalmerRT(R) Procedures Performed Procedure Location (Site) Vessel Name Angiogram LV AO Arch (A1) Aorta Coronary Angiograms LCA Left Coronary Coronary Angiograms RCA Right Coronary Coronary Angiograms SVG-OM 1 CIRC Coronary Angiograms SVG-PDA Right Coronary Coronary Angiograms Gft. Stump 1 SVG Graft Coronary Angiograms SMITH SMITH L Heart Cath Equipment Time Area Cleaner Description Size Mfg Part Number Used/Scraped TRANSDUCER, TRUWAVE [id number] 10:51 POLO WILBURN * Used W/STOCKCOCK *[id number] INTRODUCER SET, [id number] 11:20 [employer]. FR 5 Used MICROPUNCTURE *[id number] 534-545T *[id number] 534-520T *[id number] 534-521T *[id number] 534-550S *[id number] 10:51 Kardium PACK, CCL CUSTOM * Used *[id number] 10:51 [employer] SUPPORT, ARTERIAL ADULT [id number] *[id number] Used [id number] 10:51 [employer]aya MEDICAL WIRE, EXCHANGE 260CM 3MMJ 260CM Used *[id number] 10:51 NAMIC MANIFOLD, 4 PORT * Used *[id number] 10:51 [employer]COMED OMNIPAQUE, 350 MG, 150ML 150ML [id number] Used 12:18 NYCOMED OMNIPAQUE, 350 MG, 150ML 150ML [id number] Used [id number] 10:51 [employer],WARM AIR CCL * Used *[id number] 11:17 TERUMO MEDICAL SHEATH, FR5 TERUMO (10CM) FR 5 Used *[id number] SHEATH, FR6 TRANSRADIAL RM*[id number] 10:51 TERUMO MEDICAL FR 6 Used SLENDER 10CM *[id number] History: Current Medications Medication Dosage/Unit Route Frequency Last Date/Time Taken Beta Verna Statins (any) Synthroid LOPRESSOR ASA History: Allergies Allergy Reaction No Known Allergies History: Risk Factors Family History of Hypertension Dyslipidemia Previous PA Previous Heart Failure Premature CAD Yes Yes No Yes No Prior Valve Prior PCI Prior CABG Prior CABGDate Surgery No No Yes 11/24/2007 Cerebrovascular Peripheral Artery Chronic Lung On Dialysis Diabetes Diabetes Therapy Disease Disease Disease No No No No Yes Oral History: Symptoms/Diagnosis Selection Items Chest pain History: Stress Tests Stress or Imaging Studies Performed Yes Standard Exercise Stress Test No Stress Echo No Stress Test SPECT Stress Test SPECT Result Stress Test SPECT Ischemia Risk/Extent Yes Positive Low Stress Test CMR No Cardiac CTA Coronary Calcium Score No No History: Other Disease Selection Items CAD HTN History: Other Current Smoker No Labs Hgb (g/dl) Hct (%) RBC (MIL/MM3) WBC (l/cumm) Platelets (thousands) 11.60-17.00 35.00-51.00 4.00-5.90 4.00-11.00 150.00-450.00 14.9 43.6 4.7 8.9 202 Glucose (mg/dl) BUN (mg/dl) Creatinine (mg/dl) BUN:Creatinine (1:x) 74.00-106.00 7.00-18.00 0.50-1.30 10.00-20.00 196 16 0.7 22.9 Na (meq/l) K (meq/l) Cl (meq/l) CO2 (mmol/L) Ca (mg/dl) 136.00-145.00 3.50-5.10 98.00-107.00 21.00-32.00 8.50-10.10 140 4.5 108 26 8.8 PT (sec) PTT (sec) INR (PTT:PT) 9.80-11.60 24.30-30.10 0.90-1.10 11.4 29.6 1 CPK-MB (ng/ML) 0.50-3.60 Not Drawn Medication Medication Total Dose (Bolus/Oral) Medication Total Dosage/Unit 1% XYLOCAINE 40 mL FENTANYL 150 mcg VERSED 2.5 mg Medications (Bolus/Oral) Medication Time Given Dosage/Unit Administered By Reason 10/10/2017 11:01:31 VERSED 0.5 mg Kathy Arguello AM 0.5 mg VERSED given in lab by Kathy Arguello RN via Peripheral IV. 10/10/2017 11:02:39 FENTANYL 25 mcg Saundra, Kathy AM 25 mcg FENTANYL given in lab by Kathy Arguello RN via Peripheral IV. 10/10/2017 11:07:22 1% XYLOCAINE 20 mL Hererra Fuentes AM 20 mL 1% XYLOCAINE given in lab by Herrera Fuentes in Left Radial via Subcutaneous. 10/10/2017 11:09:20 VERSED 0.5 mg Will Arguelloon AM 0.5 mg VERSED given in lab by Kathy Arguello RN via Peripheral IV. 10/10/2017 11:10:32 FENTANYL 25 mcg Saundra Kathy AM 25 mcg FENTANYL given in lab by Kathy Arguello RN via Peripheral IV. 10/10/2017 11:15:15 1% XYLOCAINE 20 mL Herrera Fuentes AM 20 mL 1% XYLOCAINE given in lab by Herrera Fuentes in Right Groin via Subcutaneous. 10/10/2017 11:17:38 FENTANYL 25 mcg Will Arguelloon AM 25 mcg FENTANYL given in lab by Kathy Arguello RN via Peripheral IV. 10/10/2017 11:18:29 VERSED 0.5 mg Will Arguelloon AM 0.5 mg VERSED given in lab by Kathy Arguello RN via Peripheral IV. 10/10/2017 11:23:40 FENTANYL 50 mcg Saundra, Kathy AM 50 mcg FENTANYL given in lab by Kathy Arguello RN via Peripheral IV. 10/10/2017 11:32:42 FENTANYL 25 mcg Lenny Newman RN AM 25 mcg FENTANYL given in lab by Lenny Newman RN via Peripheral IV. 10/10/2017 11:33:05 VERSED 0.5 mg Lenny Newman RN, AM 0.5 mg VERSED given in lab by Lenny Newman RN via Peripheral IV. 10/10/2017 11:41:50 VERSED 0.5 mg Lenny Newman RN AM 0.5 mg VERSED given in lab by Lenny Newman RN via Peripheral IV. Initial Case Assessment Cardiovascular HR Rhythm NIBP Chest Pain 60 reg 179/92 0 Edema Present Skin color Skin None Normal Warm Circulatory - Right Pulses Dorsalis Pedis Posterior Tibial Femoral Radial 2 1 1 2 Scale (0,1,2,3,4,d) Circulatory - Left Pulses Dorsalis Pedis Posterior Tibial Femoral Radial 2 1 2 Scale (0,1,2,3,4,d) Circulatory - Lower Extremities Color Lower Right Color Lower Left Normal Normal Neurological State Oriented to time-place- Alert Moves all extremities person Respiration - General Respiration Rate SpO2 (%) (B/min) 15 99 Final Case Assessment Cardiovascular HR Rhythm 66 reg Edema Present Skin color Skin None Normal Warm Circulatory - Right Pulses Dorsalis Pedis Posterior Tibial Femoral Radial 2 1 1 2 Scale (0,1,2,3,4,d) Circulatory - Left Pulses Dorsalis Pedis Posterior Tibial Femoral Radial 2 1 2 Scale (0,1,2,3,4,d) Circulatory - Lower Extremities Color Lower Right Color Lower Left Normal Normal Neurological State Oriented to time-place- Alert Moves all extremities person Respiration - General Respiration Rate SpO2 (%) (B/min) 18 98 Chronological Log Time Study Chronological Log 10:42:29 Patient arrived via Bed. 10:42:30 Patient Name, D.O.B, / Armband Verified By R.N. 10:42:30 Consent signed by the physician and the patient and verified by the [facility] staff. 10:42:31 Pre-op and post- op instructions given; patient acknowledges understanding of instructions. 10:42:41 Allens test performed on the left radial and ulnar artery. 10:42:43 Patient has been NPO for More than 6Hrs. 10:42:44 Skin Breakdown-none 10:42:46 A # 20 IV was noted in the Antecubital (left). Grade = 0 Vitals capture started with the following parameters, Patient=Adult, Interval=5 min, Initial Pr jdmysa=107 mmHg, 10:43:03 Deflation Rate=5 mmHg, Cuff placed on Left Arm Vitals capture started with the following parameters, Patient=Adult, Interval=5 min, Initial Pr knuhuy=891 mmHg, 10:44:19 Deflation Rate=5 mmHg, Cuff placed on Left Arm 10:45:10 HR=62 bpm, DFEM=957/92 mmhg, SpO2=99.0 %, Resp=16 B/min, Pain=0, Sukhdev=10, Mckeon=2 10:45:52 Reference ECG taken Assessment: Initial Case, HR=60 BPM, Rhythm=reg, MNDC=671/92 mmhg, Chest Pain=0, Edema=None, Co julia=Normal, Skin = Warm Right Pulses: Donovan Ped=2, Post Tib=1, Femoral=1, Radial=2 Left Pulses: Donovan Ped=2, Post Tib=1, Femoral=2 10:48:46 Lower Right Extremities: Color=Normal Lower Left Extremities: Color=Normal Neurological: State=Alert, Ox3, PINTO Respiration: Resp=15 B/min, SpO2=99 % 10:49:35 Bilateral groins prepped with 2% chlorhexidine, and draped after a 3 minute waiting time. 10:49:47 Left Radial and groin(s) prepped with 2% chlorhexidine, and draped after a 3 min. waiting t jefferson. 10:50:03 HR=63 bpm, AIGL=708/98 mmhg, SpO2=99.0 %, Resp=16 B/min, Pain=0, Sukhdev=10, Mckeon=2 10:55:45 HR=62 bpm, IKDI=047/99 mmhg, SpO2=99.0 %, Resp=13 B/min, Pain=0, Sukhdev=10, Mckeon=2 11:00:03 HR=64 bpm, RMUC=589/98 mmhg, SpO2=99.0 %, Resp=9 B/min, Pain=0, Sukhdev=10, Mckeon=2 11:00:22 MD arrived. 11:01:31 0.5 mg VERSED given in lab by Kathy Arguello, GWYN via Peripheral IV. 11:02:39 25 mcg FENTANYL given in lab by Kathy Arguello, GYWN via Peripheral IV. 11:05:02 HR=62 bpm, LOAY=204/96 mmhg, SpO2=97.0 %, Resp=14 B/min, Pain=0, Sukhdev=10, Mckeon=2 11:05:42 Pressure channel 1 zeroed. Time Out. Correct patient, correct procedure, correct physician, power injector not loaded with contrast with surgical 11:06:59 team present. Time Out Concurred by MD and individual staff in procedure. 11:07:13 Case Start 11:07:15 Verbal Stimulation=2 Physical Stimulation=2 Airway=2 Respiration=2 TOTAL=8. (0=absent, 1=li mited, 2=present) 11:07:22 20 mL 1% XYLOCAINE given in lab by Herrera Fuentes in Left Radial via Subcutaneous. 11:09:20 0.5 mg VERSED given in lab by Kathy Arguello RN via Peripheral IV. 11:10:01 HR=69 bpm, LKUP=513/99 mmhg, SpO2=98.0 %, Resp=14 B/min, Pain=0, Sukhdev=10, Mckeon=2 11:10:32 25 mcg FENTANYL given in lab by Kathy Arguello RN via Peripheral IV. 11:15:03 HR=70 bpm, MSRE=634/104 mmhg, SpO2=97.0 %, Resp=18 B/min, Pain=0, Sukhdev=10, Mckeon=2 11:15:15 20 mL 1% XYLOCAINE given in lab by Herrera Fuentes in Right Groin via Subcutaneous. 11:17:38 25 mcg FENTANYL given in lab by Kathy Arguello RN via Peripheral IV. 11:18:29 0.5 mg VERSED given in lab by Kathy Arguello RN via Peripheral IV. 11:20:02 HR=71 bpm, XQVF=951/102 mmhg, SpO2=98.0 %, Resp=15 B/min, Pain=0, Sukhdev=10, Mckeon=2 11:23:40 50 mcg FENTANYL given in lab by Kathy Arguello RN via Peripheral IV. 11:25:03 HR=75 bpm, UJKJ=148/107 mmhg, SpO2=98.0 %, Resp=18 B/min, Pain=0, Sukhdev=10, Mckeon=2 11:30:04 HR=78 bpm, ZNJO=946/107 mmhg, SpO2=96.0 %, Resp=18 B/min, Pain=0, Sukhdev=10, Mckeon=2 11:32:42 25 mcg FENTANYL given in lab by Lenny Newman RN via Peripheral IV. 11:33:05 0.5 mg VERSED given in lab by Lenny Newman RN via Peripheral IV. 11:33:36 Access site was Right Femoral Artery. 11:33:58 A SHEATH, FR5 TERUMO (10CM) FR 5 was advanced into the Fem Art (right) using the P[place] us technique. 11:35:05 HR=71 bpm, GQAP=181/107 mmhg, SpO2=95.0 %, Resp=15 B/min, Pain=0, Sukhdev=10, Mckeon=2 A JR 4.0 INFINITI CATHETER FR 5 was advanced over a wire. OMNIPAQUE, 350 MG, 150ML 150ML was us ed for 11:35:46 injections. Recorded Pressure: LV, HR=70, Condition=Condition 1 11:36:53 (Left Ventricle) LV 173/5/17 Recorded Pressure: LV, Ao, HR=72, Condition=Condition 1 11:37:10 (Left Ventricle) LV 171/4/17, (Aorta) Ao 183/88/128 11:37:26 The RCA was injected and visualized at various angles. OMNIPAQUE, 350 MG, 150ML 150ML used . Recorded Pressure: Ao, HR=73, Condition=Condition 1 11:38:22 (Aorta) Ao 171/88/123 11:39:15 The SVG-OM 1 was injected and visualized at various angles. OMNIPAQUE, 350 MG, 150ML 150ML used. 11:40:08 HR=80 bpm, QTTL=646/101 mmhg, SpO2=96.0 %, Resp=16 B/min, Pain=0, Sukhdev=10, Mckeon=2 11:41:50 0.5 mg VERSED given in lab by Lenny Newman RN via Peripheral IV. 11:42:48 The Gft. Stump 1 was injected and visualized at various angles. OMNIPAQUE, 350 MG, 150ML 15 0ML used. 11:44:58 The SVG-PDA was injected and visualized at various angles. OMNIPAQUE, 350 MG, 150ML 150ML u sed. 11:45:03 HR=75 bpm, XWTS=436/101 mmhg, SpO2=95.0 %, Resp=16 B/min, Pain=0, Sukhdev=10, Mckeon=2 11:48:40 The SMITH was injected and visualized at various angles. OMNIPAQUE, 350 MG, 150ML 150ML used . 11:50:06 HR=74 bpm, XLZE=291/94 mmhg, SpO2=96.0 %, Resp=15 B/min, Pain=0, Sukhdev=10, Mckeon=2 After removing the current catheter a JL 4.0 INFINITI CATHETER FR 5 was advanced over a WIRE, E XCHANGE 260CM 11:52:04 3MMJ 260CM. 11:54:19 The LCA was injected and visualized at various angles. OMNIPAQUE, 350 MG, 150ML 150ML used . 11:55:03 HR=80 bpm, JVIP=146/100 mmhg, SpO2=95.0 %, Resp=17 B/min, Pain=0, Sukhdev=10, Mckeon=2 11:56:07 Power injector was loaded and noted to be free of air by Lenny Nava RN 11:57:44 Catheter was removed A PIGTAIL STR. INFINITI CATHETER FR 5 was advanced over a wire. OMNIPAQUE, 350 MG, 150ML 150ML was used for 11:57:45 injections. 11:59:00 The AO Arch (A1) was injected at 12 cc/sec for a total of 36. OMNIPAQUE, 350 MG, 150ML 150M L used. 12:00:04 HR=80 bpm, EWJB=241/103 mmhg, SpO2=96.0 %, Resp=15 B/min, Pain=0, Sukhdev=10, Mckeon=2 12:05:05 HR=78 bpm, DFWN=863/94 mmhg, SpO2=97.0 %, Resp=14 B/min, Pain=0, Sukhdev=10, Mckeon=2 12:05:37 Catheter was removed A AL 1 INFINITI CATHETER FR 5 was advanced over a wire. OMNIPAQUE, 350 MG, 150ML 150ML was used for 12:06:13 injections. 12:10:04 HR=74 bpm, NIOW=480/98 mmhg, SpO2=97.0 %, Resp=16 B/min, Pain=0, Sukhdev=10, Mckeon=2 12:14:46 The Gft. Stump 1 was injected and visualized at various angles. OMNIPAQUE, 350 MG, 150ML 15 0ML used. 12:15:05 HR=75 bpm, BNHJ=076/94 mmhg, SpO2=96.0 %, Resp=16 B/min, Pain=0, Sukhdev=10, Mckeon=2 12:17:49 Catheter was removed 12:19:01 Case End Assessment: Final Case, HR=66 BPM, Rhythm=reg, Edema=None, Color=Normal, Skin = Warm Right Pulses: Donovan Ped=2, Post Tib=1, Femoral=1, Radial=2 Left Pulses: Donovan Ped=2, Post Tib=1, Femoral=2 12:19:08 Lower Right Extremities: Color=Normal Lower Left Extremities: Color=Normal Neurological: State=Alert, Ox3, PINTO Respiration: Resp=18 B/min, SpO2=98 % 12:20:06 HR=69 bpm, SNRP=797/102 mmhg, SpO2=97.0 %, Resp=17 B/min, Pain=0, Sukhdev=10, Mckeon=2 12:20:38 Catheter(s) removed without difficulty 12:20:44 Sterile dressing applied to site 12:20:45 No case complications noted. 12:20:46 Cine recording checked. 12:20:48 Bedside Report will be given. 12:20:55 Bedside Report will be given. 12:20:59 Contrast Scanned 12:22:39 Verbal Stimulation=2 Physical Stimulation=2 Airway=2 Respiration=2 TOTAL=8. (0=absent, 1=l imited, 2=present) 12:22:50 A Left Heart Cath was performed. 12:24:53 Vitals capture stopped. End Study - Contrast Media Used In Study Contrast Total Opened (mL) Total Used (mL) Total Wasted (mL) Omnipaque 140 140 0 End Study - Maximum Contrast Load Max Contrast Load (mL) 745.1 End Study - Radiation Exposure Fluoro Time (minutes) 17.5 End Study - Patient Disposition Complications Transferred To No Outpatient Bed
[2017-10-10] MEDS ORDERED: LIPI80TA PO (12:34)
[2017-10-10] MEDS ORDERED: AMLO5 PO (12:34)
--- NOTE | 2017-10-10 16:22 | EKG ---
Date Performed: 10/10/2017 Time Performed: 09:07:22 PTAGE: 62 years EKG: Sinus bradycardia Lateral T wave changes are nonspecific Borderline ECG Compared to PREVIOUS TRACING , there is some improvement in the T-wave changes anteroseptally, otherw ise no significant change. PREVIOUS TRACIN09/28/2017 20.47 DOCTOR: Ellis Kwon Interpretating Date/Time 10/10/2017 16:21:12
--- NOTE | 2017-10-10 23:29 | MA ---
cc: HERRERA VIDES DO DATE: 10/10/2017. PROCEDURE PERFORMED: Left heart catheterization, coronary angiogram, bypass angiogram, aortic root angiogram, moderate sedation 80 minutes. PREPROCEDURE DIAGNOSIS: Abnormal stress test, shortness of breath, accelerated hypertension. POSTPROCEDURE DIAGNOSIS: Multivessel coronary artery disease, history of CABG x4 (3 out of 4 grafts patent). MEDICATIONS: Versed to 2.5 milligrams Fentanyl 150 micrograms. CONTRAST USED: 140 mL. FLUOROSCOPY: 17.5 minutes. SEDATION: Moderate sedation 80 minutes. 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 He had a mild elevation of troponins and underwent stress testing which showed possible anterior wall ischemia considered low risk by stress testing. Because of this as well as symptoms of shortness of breath, he was recommended cardiac catheterization. Risks, benefits and alternatives were explained to him and he consented as such. He was brought to lab and prepped in the usual sterile fashion. I attempted to gain access to his left radial artery but was unable to, and so this was switched to a right femoral artery access. A 5-Tuval[place] sheath was inserted into the right femoral artery using a modified Seldinger technique. A JR-4 was advanced over a J-wire to the ascending aorta and across the aortic valve for measurement of left ventricular pressure. This was pulled back across the aortic valve showing no significant gradient of aortic stenosis. JR-4 was used for selective angiography of the right coronary artery, SVG to obtuse marginal, and SVG to an unknown artery, SVG to PDA and SMITH to LAD. The JR-4 was then exchanged out for a JL-4 which was used for selective angiography of the [place] left coronary artery. As I was unsure of one of the grafts being a stump, an aortic root shot was done. Finally an AL-1 was placed for confirmation of the last graft being a stump. The AL-1 was removed. The sheath was sutured in place with a plan to remove and pressure held for hemostasis. The patient left the lab clerk cardiovascularly stable. FINDINGS: Left main normal sized vessel with adequate reflux and bifurcates into an LAD and circumflex. LAD has diffuse 70% disease throughout the proximal portion until 100% occluded in the midportion. Left circumflex is an overall small vessel with mild luminal irregularities throughout. First obtuse marginal is 100% occluded. Second obtuse marginal has diffuse 70% disease but is overall a 1.5 mm vessel. RCA is a normal-sized vessel with a 90% occlusion in the proximal portion and distally 80% disease in the PDA. SMITH to LAD patent. Distally the LAD is an extremely small vessel with diffuse significant disease. SVG to OM patent. Distally the obtuse marginal has diffuse 50% disease in an overall small vessel. SVG to PLB patent. Overall this is a large aneurysmal graft with some slow flow noted in the midportion due to the overall size. SVG to unknown vessel, possible diagonal, occluded LVEDP 17. IMPRESSIONS: 1. Abnormal stress test showing anterior ischemia. 2. Shortness of breath. 3. Accelerated hypertension 4. Multivessel coronary artery disease. 5. History of CABG x4 (3 out of 4 grafts patent). RECOMMENDATIONS: 1. Mr. Duong appears to have 3 out of 4 of his grafts patent and where he has anterior ischemia, his SMITH to LAD is patent with an overall small LAD with diffuse disease. 2. We will continue him on medical management. 3. While in the hospital both in his previous admission as well as at this time he has had extensive hypertension and so he will be started on Norvasc 5 milligrams daily. He will watch his blood pressure at home, and if still elevated, this will be increased to 10 milligrams daily. 4. As he is on Zocor 80, overall this should be changed as well as being placed on Norvasc. We will change this to Lipitor 40. 5. He will be discharged home to follow up with me in the next four to six weeks. Thank you for allowing me to see Rashard Duong. If there are any questions please do not hesitate to call. Herrera Vides DO VGP/JCC /9:55 PM /11:13 PM [facility]
== END 2017-10-10 19:45 | disposition home or self-care (01) ==
LOC: HDOC 07:13 → HDIC 07:15 → HDOC 19:45
PROVIDERS: ATTEND Nuclear Medicine Nuclear Cardiology
DX: I25.10 Atherosclerotic heart disease of native coronary artery without angina pectoris (principal); I10 Essential (primary) hypertension; Z95.1 Presence of aortocoronary bypass graft
CPT/HCPCS: 80048; 85025; 85610; 85730; 93005; 93459; 93567; 99152; 99153; C1769; C1893; J0360; J1644; J2250; J3010; Q9967

== ENCOUNTER 2018-03-14 01:46 | Emergency (ER) | payer OTHER ==
[2018-03-14] VITALS (10 sets, daily range): BP systolic 109–157; BP diastolic 72–92; PULSE 90–176; RESP 16–20; TEMP 97.7; O2SAT 98–100
[~2018-03-14] VITALS: Ht 172.7 cm; Wt 104.6 kg
[~2018-03-14 01:46] MED LIST changes: +AMLO5 PO; +ASPI-183 PO; -ASPI1TAB56 PO; +LIPI80TA PO; -SIMV80TA PO; +VITA100T65 PO
[2018-03-14] MEDS ORDERED: ADENOSINE IV SOLN 3 MG/ML 2 ML VIAL ONE ×2 (02:00→02:01)
[2018-03-14 02:13] LABS: AUTOMATED NEUTROPHIL # 4.3 TH/MM3 (1.8-7.7); BASOPHIL # 0.1 TH/MM3 (0-0.2); BASOPHIL % 1.1 % (0.0-2.0); EOSINOPHIL # 0.4 TH/MM3 (0-0.4); EOSINOPHIL % 3.3 % (0.0-4.0); HEMATOCRIT 45.6 % (39.0-51.0); HEMOGLOBIN 15.2 GM/DL (13.0-17.0); LYMPH % 47.4 % (9.0-44.0); LYMPHOCYTE # 5.1 TH/MM3 (1.0-4.8); MEAN CELL VOLUME 91.3 FL (80.0-100.0); MEAN CORPUSCULAR HEMOGLOBIN 30.4 PG (27.0-34.0); MEAN CORPUSCULAR HGB CONC 33.3 % (32.0-36.0); MEAN PLATELET VOLUME 7.6 FL (7.0-11.0); MONO % 9.7 % (0.0-8.0); MONOCYTE # 1.1 TH/MM3 (0-0.9); NEUT % 38.5 % (16.0-70.0); PLATELET COUNT 255 TH/MM3 (150-450); RED BLOOD COUNT 4.99 MIL/MM3 (4.50-5.90); RED CELL DISTRIBUTION WIDTH 12.8 % (11.6-17.2)
[2018-03-14] MEDS ORDERED: SODIUM CHLORIDE 0.9% FLUSH 10 ML FLUSH IVF PRN (02:15)
[2018-03-14] MEDS ORDERED: ASPIRIN 81 MG CHEW TAB PO ONE (02:15)
[2018-03-14] MEDS ORDERED: SODIUM CHLOR 0.9% 1000 ML INJ 1,000 ML IV SCH (02:15)
[2018-03-14] MEDS ORDERED: SODIUM CHLORID 0.9% 500 ML INJ 500 ML IV ONE (02:15)
[2018-03-14] MEDS ORDERED: ADENOSINE IV SOLN 3 MG/ML 2 ML VIAL IV PUSH ONE ×2 (02:15)
--- NOTE | 2018-03-14 02:16 | PD ---
HPI Chief Complaint: palpitation Time Seen by Provider: 02:02 Travel History International Travel<30 days: No Contact w/Intl Traveler<30days: No Traveled to known affect area: No History of Present Illness HPI 63-year-old male presents to the emergency department by private transportation the care of her spouse for evaluation of rapid heartbeat with palpitations. Patient states symptoms began approximately 30 minutes prior to arrival to the emergency department. Patient reports he has had episodes like this before. Patient denies any associated shortness of breath sweats nausea vomiting chest pain or referred neck jaw back shoulder arm or abdominal pain. No near syncope or syncope. Patient reports he attempted vagal maneuvers at home without success. Patient does have history of CAD with prior myocardial infarction and CABG 2008 also history of hypertension dyslipidemia and diabetes. Patient is treated for hypothyroidism. Patient denies tobacco use. Admits to occasional alcohol use. No report of increased alcohol use or caffeine use. PFSH Past Medical History Narrative Medical CAD MT CABG hypertension dyslipidemia diabetes hypothyroidism; occasional alcohol use; nursing notes reviewed Arthritis: Yes Anxiety: No Depression: No Cancer: No Cardiovascular Problems: Yes High Cholesterol: Yes Chest Pain: No Diabetes: Yes (TYPE 11) Endocrine: Yes Gastrointestinal Disorders: Yes Glaucoma: No Genitourinary: No Hepatitis: No Hiatal Hernia: No Hypertension: Yes Musculoskeletal: Yes Neurologic: No Psychiatric: No Reproductive: No Respiratory: Yes Integumentary: No Myocardial Infarction: Yes Thyroid Disease: Yes (HYPOTHYROID) Past Surgical History Cardiac Surgery: Yes (QUADRUPLE BYPASS) Thoracic Surgery: Yes (CABGx4 [place] 2007) Social History Alcohol Use: Yes Tobacco Use: No Substance Use: No Allergies-Medications (Allergen,Severity, Reaction): Coded Allergies: No Known Allergies (Verified Allergy, Mild, 03/14/18) Reported Meds & Prescriptions Reported Meds & Active Scripts Active Lipitor (Atorvastatin Calcium) 80 Mg Tab 80 Mg PO HS Norvasc (Amlodipine Besylate) 5 Mg Tab 5 Mg PO DAILY Metoprolol Tartrate 25 Mg Tab 25 Mg PO Q8HR Reported Vitamin E 100 Unit Tab Unknown Dose PO DAILY Aspirin 325 Mg Tab 325 Mg PO DAILY Levothyroxine (Levothyroxine Sodium) 150 Mcg Tab 150 Mcg PO DAILY Januvia (Sitagliptin Phosphate) 50 Mg Tab 50 Mg PO DAILY Glimepiride 4 Mg Tab 4 Mg PO BIDAC Vitamin D3 Ultra Strength (Cholecalciferol) 5,000 Unit Cap 5,000 Units PO DAILY Review of Systems Except as stated in HPI: all other systems reviewed are Neg General / Constitutional: No: Fever, Chills HENT: No: Congestion Cardiovascular: Positive: Palpitations, Tachycardia, No: Chest Pain or Discomfort, Diaphoresis, Dyspnea on exertion, Edema, Claudication Respiratory: No: Cough, Shortness of Breath, Wheezing Gastrointestinal: No: Nausea, Vomiting, Abdominal Pain Genitourinary: No: Dysuria, Flank Pain Musculoskeletal: No: Myalgias, Arthralgias, Edema Skin: No Rash Neurologic: No: Weakness, Dizziness, Syncope Psychiatric: No: Anxiety Hematologic/Lymphatic: No: Lymph Node Enlargement Physical Exam Narrative GENERAL: Well-developed well-nourished male no acute distress no respiratory distress; GCS 15 SKIN: Warm and dry. HEAD: Normocephalic. EYES: No scleral icterus. No injection or drainage. NECK: Supple, trachea midline. No JVD or lymphadenopathy. CARDIOVASCULAR: Increased regular rate and rhythm without murmurs, gallops, or rubs. RESPIRATORY: Breath sounds equal bilaterally. No accessory muscle use. GASTROINTESTINAL: Abdomen soft, non-tender, nondistended. MUSCULOSKELETAL: No cyanosis, or edema. BACK: Nontender without obvious deformity. No CVA tenderness. Data Data Last Documented VS Vital Signs Date Time Temp Pulse Resp B/P (MAP) Pulse Ox O2 Delivery O2 Flow Rate FiO2 03/14/18 02:45 90 18 132/74 (93) 99 Nasal Cannula 2.00 03/14/18 01:58 97.7 Orders Orders Adenosine Inj (Adenocard Inj) (03/14/18 02:00) Adenosine Inj (Adenocard Inj) (03/14/18 02:01) Electrocardiogram (03/14/18 02:02) Basic Metabolic Panel (Bmp) (03/14/18 02:02) Ckmb (Isoenzyme) Profile (03/14/18 02:02) Complete Blood Count With Diff (03/14/18 02:02) Magnesium (Mg) (03/14/18 02:02) Prothrombin Time / Inr (Pt) (03/14/18 02:02) Act Partial Throm Time (Ptt) (03/14/18 02:02) Troponin I (03/14/18 02:02) Ecg Monitoring (03/14/18 02:02) Bilateral Bp Monitoring (03/14/18 02:02) Iv Access Insert/Monitor (03/14/18 02:02) Oximetry (03/14/18 02:02) Oxygen Administration (03/14/18 02:02) Aspirin Chew (Aspirin Chew) (03/14/18 02:15) Sodium Chloride 0.9% Flush (Ns Flush) (03/14/18 02:15) Sodium Chlorid 0.9% 500 Ml Inj (Ns 500 M (03/14/18 02:15) Sodium Chlor 0.9% 1000 Ml Inj (Ns 1000 M (03/14/18 02:15) Adenosine Inj (Adenocard Inj) (03/14/18 02:15) Thyroid Stimulating Hormone (03/14/18 02:00) Chest, Single Ap (03/14/18 02:02) Ed Discharge Order (03/14/18 03:41) Labs Laboratory Tests Test 03/14/18 02:00 White Blood Count 11.0 TH/MM3 Red Blood Count 4.99 MIL/MM3 Hemoglobin 15.2 GM/DL Hematocrit 45.6 % Mean Corpuscular Volume 91.3 FL Mean Corpuscular Hemoglobin 30.4 PG Mean Corpuscular Hemoglobin Concent 33.3 % Red Cell Distribution Width 12.8 % Platelet Count 255 TH/MM3 Mean Platelet Volume 7.6 FL Neutrophils (%) (Auto) 38.5 % Lymphocytes (%) (Auto) 47.4 % Monocytes (%) (Auto) 9.7 % Eosinophils (%) (Auto) 3.3 % Basophils (%) (Auto) 1.1 % Neutrophils # (Auto) 4.3 TH/MM3 Lymphocytes # (Auto) 5.1 TH/MM3 Monocytes # (Auto) 1.1 TH/MM3 Eosinophils # (Auto) 0.4 TH/MM3 Basophils # (Auto) 0.1 TH/MM3 CBC Comment AUTO DIFF Differential Total Cells Counted 100 Neutrophils % (Manual) 40 % Lymphocytes % 47 % Monocytes % 9 % Eosinophils % 4 % Neutrophils # (Manual) 4.4 TH/MM3 Differential Comment FINAL DIFF MANUAL Platelet Estimate NORMAL Platelet Morphology Comment NORMAL Red Cell Morphology Comment NORMAL Prothrombin Time 9.9 SEC Prothromb Time International Ratio 1.0 RATIO Activated Partial Thromboplast Time 28.5 SEC Blood Urea Nitrogen 15 MG/DL Creatinine 0.82 MG/DL Random Glucose 205 MG/DL Calcium Level 9.3 MG/DL Magnesium Level 2.2 MG/DL Sodium Level 138 MEQ/L Potassium Level 3.8 MEQ/L Chloride Level 103 MEQ/L Carbon Dioxide Level 24.2 MEQ/L Anion Gap 11 MEQ/L Estimat Glomerular Filtration Rate 94 ML/MIN Total Creatine Kinase 95 U/L Troponin I LESS THAN 0.02 NG/ML Thyroid Stimulating Hormone 3rd Gen 7.680 uIU/ML MDM Medical Decision Making Medical Screen Exam Complete: Yes Emergency Medical Condition: Yes Medical Record Reviewed: Yes Interpretation(s) EKG: SVT rate [address] depression no acute ST elevation EKG #2 status post endocarditis milligrams: Sinus tachycardia rate [address] elevation or injury pattern change noted Last Impressions Chest X-Ray 03/14/18 020 Signed Impressions: Service Date/Time: Wednesday, March 14, 2018 02:27 - CONCLUSION: Cardiomegaly. Clear lungs. Noel Doan Jr., MD CBC & BMP Diagram 03/14/18 02:00 Calcium Level 9.3, Magnesium Level 2.2 Vital Signs Date Time Temp Pulse Resp B/P (MAP) Pulse Ox O2 Delivery O2 Flow Rate FiO2 03/14/18 02:45 90 18 132/74 (93) 99 Nasal Cannula 2.00 03/14/18 02:29 92 18 139/80 (99) 99 Nasal Cannula 2.00 125/82 (96) 03/14/18 02:14 95 20 148/82 (104) 100 Nasal Cannula 2.00 03/14/18 02:09 176 20 157/83 (107) 99 Nasal Cannula 2.00 03/14/18 02:01 176 18 124/92 (103) 98 Nasal Cannula 2.00 03/14/18 02:00 176 20 95 2.00 03/14/18 02:00 100 Nasal Cannula 2.00 03/14/18 01:58 97.7 169 16 142/72 (95) 98 03/14/18 01:55 97.7 169 18 142/72 (95) 98 Troponin I: Less than 0.02, not elevated; CK: 95 not elevated TSH: 7.680, elevated patient on thyroid replacement therapy Differential Diagnosis Palpitations, SVT, atrial fibrillation, ACS, MT, electrolyte disturbance, thyroid disorder Narrative Course Patient placed on quality assurance monitor final with continuous pulse oximetry IV access obtained specimens collected and sent for resulting patient administered EKG performed which shows regular narrow complex tachycardia rate 170 consistent with SVT and patient administered Adenocard 6 mg IV. After one-time dose patient converted to sinus tachycardia rate of [address] elevation nonspecific ST-T changes. Patient denies any chest pain at this time or other complaints. Patient waiting on lab results voicing no concerns or complaints Patient feels well labs values found to be within normal range except for elevated TSH patient is treated for hypothyroidism Patient's case discussed with on-call office messenger helper covering for patient's office messenger helper Dr. Fuentes no changes indicated follow-up with patient's office messenger helper on Friday Physician Communication Physician Communication placed to Dr Fuentes patient's office messenger helper --- Discussed with Dr Be --d/c opt follow up with Dr Fuentes, no change to meds Diagnosis Primary Impression: Paroxysmal SVT (supraventricular tachycardia) Additional Impressions: Hypothyroidism H/O arteriosclerotic cardiovascular disease Referrals: Herrera Fuentes DO 3 days Patient Instructions: General Instructions Additional Instructions: Increase fluid hydration Continue current medications as presently prescribed Follow-up with your primary care provider call office on Friday Follow-up with your office messenger helper Dr. Fuentes call office on Friday Return to the emergency department for any concerns or change in condition Med/Other Pt SpecificInfo: No Change to Meds Disposition: 01 DISCHARGE HOME Condition: Stable Kimmie Figueroa MD Mar 14, 2018 02:16
[2018-03-14 02:21] LABS: CHLORIDE 103 MEQ/L (98-107); SODIUM (NA) 138 MEQ/L (136-145)
[2018-03-14 02:23] LABS: CALCIUM 9.3 MG/DL (8.5-10.1)
[2018-03-14 02:24] LABS: BICARBONATE 24.2 MEQ/L (21.0-32.0); BLOOD UREA NITROGEN 15 MG/DL (7-18); GLUCOSE,RANDOM 205 MG/DL (74-106); MAGNESIUM 2.2 MG/DL (1.5-2.5)
[2018-03-14 02:25] LABS: PROTHROMBIN TIME - PATIENT 9.9 SEC (9.8-11.6)
[2018-03-14 02:27] LABS: CREATININE 0.82 MG/DL (0.60-1.30); GLOMERULAR FILTRATION RATE 94 ML/MIN (>89)
[2018-03-14 02:32] LABS: TROPONIN I LESS THAN 0.02 NG/ML (0.02-0.05)
[2018-03-14 02:40] LABS: LYMPHOCYTES 47 % (9-44); MONOCYTES 9 % (0-8); NEUTROPHIL # MANUAL DIFF 4.4 TH/MM3 (1.8-7.7); POLYS (SEG NEUTROPHILS) 40 % (16-70)
--- NOTE | 2018-03-14 03:14 | RADRPT ---
EXAM DATE/TIME: 03/14/2018 02:27 [facility] COMPARISON: CHEST SINGLE AP, September 28, 2017, 9:17. INDICATIONS : Chest pain. MEDICAL HISTORY : Cardiovascular disease. Diabetes mellitus type 2. SURGICAL HISTORY : CABG. ENCOUNTER: Initial ACUITY: 1 day PAIN SCORE: 7/10 LOCATION: Bilateral chest FINDINGS: A single view of the chest demonstrates the lungs to be symmetrically aerated without evidence of mas s, infiltrate or effusion. Mild cardiomegaly. No pulmonary vascular engorgement. Median sternotomy wi res.. Osseous structures are intact. CONCLUSION: Cardiomegaly. Clear lungs. Noel Doan Jr., MD on March 14, 2018 at 3:12 Board Certified Radiologist. This report was verified electronically.
--- NOTE | 2018-03-14 18:19 | EKG ---
Date Performed: 03/14/2018 Time Performed: 01:59:09 PTAGE: 63 years EKG: ATRIAL FIBRILLATION WITH RAPID VENTRICULAR RESPONSE MODERATE ST DEPRESSION ABNORMAL QRS-T A NGLE Compared to previous tracing, atrial fibrillation and ST changes are new ABNORMAL ECG PREVIOUS TRACING : 10/10/2017 09.07 DOCTOR: Martin Castillo Interpretating Date/Time 03/14/2018 18:17:30
--- NOTE | 2018-03-14 18:19 | EKG ---
Date Performed: 03/14/2018 Time Performed: 02:07:40 PTAGE: 63 years EKG: SINUS TACHYCARDIA NONSPECIFIC ST & T-WAVE ABNORMALITY Compared to previous tracing, patient is no longer in atrial fibrillation and ST changes have improved ABNORMAL RHYTHM ECG PREVIOUS TRACING : 03/14/2018 01.59 DOCTOR: Martin Castillo Interpretating Date/Time 03/14/2018 18:18:00
== END 2018-03-14 03:56 | disposition home or self-care (01) ==
LOC: PHED 01:46
DX: I47.1 Supraventricular tachycardia (principal); E03.9 Hypothyroidism, unspecified; I25.10 Atherosclerotic heart disease of native coronary artery without angina pectoris; R94.31 Abnormal electrocardiogram [ECG] [EKG]; I25.2 Old myocardial infarction; I10 Essential (primary) hypertension; E11.9 Type 2 diabetes mellitus without complications; E78.5 Hyperlipidemia, unspecified; M19.90 Unspecified osteoarthritis, unspecified site
CPT/HCPCS: 71045; 80048; 82550; 83735; 84443; 84484; 85007; 85027; 85610; 85730; 93005; 96361; 96374; 99285; J0153; J7030; J7040

== ENCOUNTER 2018-09-03 12:03 | Inpatient (IN) ==
[2018-09-03] MEDS ORDERED: Metoprolol Tartrate 25 MG Tablet PO ONE (12:55)
[2018-09-03] MEDS ORDERED: Chlorhexidine Gluconate 2% 1 Pack (2 Cloths) TOPICAL ONE (12:55)
[2018-09-03] MEDS ORDERED: Sodium Chlor 0.9% Inj 500 ML IV.SIG SCH (13:00)
[2018-09-03] MEDS ORDERED: Sodium Chloride 0.9% 2 ML Flush PRN IV.FLUSH (13:05)
[2018-09-03] MEDS ORDERED: fentaNYL Citrate Inj 250 MCG/5 ML Ampul ONE ×2 (13:14→15:46)
[2018-09-03] MEDS ORDERED: Dextrose 5%/NaCl 0.9% Inj 1,000 ML IV.SIG SCH (13:15)
[2018-09-03] MEDS ORDERED: Labetalol HCl Inj 100 MG/20 ML Vial IV.CONT ONE (13:31)
[2018-09-03] MEDS ORDERED: Neostigmine Inj 5 MG/5 ML Syringe IV.PUSH ONE (13:31)
[2018-09-03] MEDS ORDERED: Glycopyrrolate Inj 1 MG/5 ML Syringe IV.PUSH ONE (13:31)
[2018-09-03] MEDS ORDERED: Phenylephrine/NS 1000 MCG/10ML Syringe IV.PUSH ONE (13:31)
[2018-09-03] MEDS ORDERED: Sugammadex Inj 200 MG/2 ML Vial IV.PUSH ONE (16:21)
[2018-09-03] MEDS ORDERED: Naloxone Inj 0.4 MG/ML Vial IV.PUSH PRN (16:40)
[2018-09-03] MEDS ORDERED: Dextrose 50% in Water 50 ML Vial IV.PUSH PRN (16:42)
[2018-09-03] MEDS ORDERED: Potassium Chlor 20 mEq Premix 20 MEQ/100 ML PIGGYBACK IV.SIG PRN (16:46)
[2018-09-03] MEDS ORDERED: Potassium Chlor 40 mEq Premix 40 MEQ/100 ML PIGGYBACK IV.SIG PRN (16:46)
[2018-09-03] MEDS ORDERED: Zolpidem Tartrate 5 MG Tablet PO PRN (16:49)
[2018-09-03] MEDS ORDERED: Ketorolac Inj 30 MG/ML (IVP) Vial IV.PUSH PRN (16:49)
[2018-09-03] MEDS ORDERED: KCL 20 mEq/D5W/LR Inj 1,000 ML ONE (16:57)
--- NOTE | 2018-09-03 17:00 | P.OP ---
- Preoperative Diagnosis (1) Cancer of sigmoid colon - Postoperative Diagnosis (1) Cancer of sigmoid colon Date of procedure: 09/03/18 Procedure: Left colectomy,LAR,Intraop colonoscopy Anesthesia: GETA Surgeon: Kenji Corley MD Machine Container Washer: Liam Acuna Estimated blood loss (mL): 200
[2018-09-03] MEDS: Morphine Inj 30 MG/30 ML PCA.VIAL PCA PRN (17:12)
[2018-09-03] MEDS: KCL 20 mEq/D5W/LR Inj 1,000 ML IV.CONT SCH ×2 (17:15→22:10)
[2018-09-03 17:25] LABS: Baso # (Auto) 0.1 th/mm3 (0.0-0.2); Baso % (Auto) 0.8 % (0.0-2.0); Eos # (Auto) 0.1 th/mm3 (0.0-0.4); Eos % (Auto) 0.9 % (0.0-4.0); Hematocrit 40.5 % (39.0-51.0); Hemoglobin 13.7 gm/dL (13.0-17.0); Lymph # (Auto) 2.3 th/mm3 (1.0-4.8); Lymph % (Auto) 20.2 % (9.0-44.0); Mean Corpuscular HGB Conc 33.9 % (32.0-36.0); Mean Corpuscular Hemoglobin 31.3 pg (27.0-34.0); Mean Corpuscular Volume 92.3 fL (80.0-100.0); Mean Platelet Volume 7.5 fL (7.0-11.0); Mono # (Auto) 0.9 th/mm3 (0.0-0.9); Mono % (Auto) 8.3 % (0.0-8.0); Neut # (Auto) 7.8 th/mm3 (1.8-7.7); Neut % (Auto) 69.8 % (16.0-70.0); Platelet Count 281 th/mm3 (150-450); Red Blood Count 4.39 mil/mm3 (4.50-5.90); Red Cell Distribution Width 13.4 % (11.6-17.2); White Blood Count 11.2 th/mm3 (4.0-11.0)
--- NOTE | 2018-09-03 17:26 | MP ---
cc: Kenji Corley MD,Sonal Sparks,Graeme Mejia MD DATE OF OPERATION: 09/03/2018 DATE OF SURGERY: 09/03/2018. PREOPERATIVE DIAGNOSIS: Distal sigmoid colon cancer. POSTOPERATIVE DIAGNOSIS: Distal sigmoid colon cancer. PROCEDURE PERFORMED: 1. Full, left colectomy with low anterior colorectal anastomosis. 2. Intraoperative colonoscopy. 3. Mobilization of splenic flexure with an omental flap. ANESTHESIA: General endotracheal. SURGEON: Dr. Corley. FRONT OFFICE MANAGER: Dr. Acuna. ESTIMATED BLOOD LOSS: 200 mL. OPERATING TIME: Two hours and five minutes. OPERATIVE FINDINGS: This patient was [place] Dr. Graeme Sparks with a large bulky, nearly obstructing sigmoid colon carcinoma. His family doctor is Dr. Sonal He. The patient had a colonoscopy on 08/05/2018 and had had a previous bout of what was felt to be diverticulitis in May with a CT scan on 06/12/2018. Because of his bowel symptoms, he underwent the colonoscopy and when this near obstructing lesion was identified. For this reason, after resection, intraoperative colonoscopy was planned and done. Exploration of the abdominal cavity revealed that there was a bulky distal sigmoid colon cancer with some tortuosity stuck to the left pelvic sidewall. Upon exploring the cancer, a piece of inflammatory tissue was torn from the surface of the cancer and on the left pelvic sidewall and this was excised and this peritoneal piece was about 1 cm in size and was sent separately as left pelvic sidewall. The remainder of the tumor was resected en bloc with left pelvic sidewall and possibly left anterior vas deferens and/or left seminal vesicle. The right seminal vesicle was identified and was intact. The anastomosis was approximately at 10 cm of the rectum, just at or above the cul-de-sac. Because of the size of the rectum, it was a double staple technique anastomosis with an Ethicon 33 EEA. The full left colon needed to be mobilized because there was no redundant sigmoid to allow anastomosis and the splenic flexure was mobilized and the inferior mesenteric artery and inferior mesenteric vein were divided as were the left colic vessels. The dissection was taken up to the marginal vessels and the middle colic vessels. The omentum was mobilized from the transverse colon and placed in the pelvis as an omental flap. The remainder of the abdominal exploration was normal including the gallbladder, the colon, the small bowel, except for the liver. It was enlarged and fibrotic consistent with cirrhosis of the liver. OPERATIVE TECHNIQUE: The patient was placed on the table in the supine position. After adequate general endotracheal anesthesia, the legs were placed in the perineal lithotomy position. The abdomen and perineum were prepped and draped in the usual manner. Transverse infraumbilical skin incision was made, carried down through subcutaneous tissue and the rectus muscles and peritoneal cavity was entered with the above-mentioned findings. Our attention was turned to the sigmoid colon and descending colon. It was mobilized in the upper sigmoid and descending colon and up around the splenic flexure fully. The omentum was mobilized from the transverse colon. Next the left ureter was identified and protected at all times and then the inferior mesenteric artery was doubly clamped, cut and doubly ligated with 0-Vicryl ligatures. The inferior mesenteric vein was likewise clamped, cut, and ligated with 0-Vicryl ligatures. We then incised the right pelvic peritoneum and the retrorectal space was entered. The dissection was taken down to the retrorectal space posterior to the rectum towards the pelvic floor. Once this was done, the main tumor mass was on the left side of the pelvis and stuck just superior to the prostate and the left pelvic sidewall and this was dissected free of that left pelvic sidewall, taking left pelvic sidewall with it and apparently what appeared to be the vas deferens and possibly the left seminal vesicle. In mobilizing this prior to dissecting it free, there was a small piece of inflammatory tissue next to this lesion that was on the left pelvic peritoneum and this was initially excised and sent separately as left pelvic sidewall biopsy. Once the full tumor was mobilized en bloc from the left pelvic sidewall and the left prostate and seminal vesicle region, the retrorectal space was further dissected down to the pelvic floor. The mesorectum was then clamped, cut and ligated and the rectum was divided in the mid to upper portion at about 10 cm from the anal canal after stapling it closed with a TX 60 green staple height stapler. This was well distal to the tumor, probably 8 cm-10 cm. Next, the bowel was measured for length for the anastomosis and the upper sigmoid or descending colon was chosen and the remainder of the mesentery was clamped, cut and ligated and the colon was cleared. The Pursestring stapling device was placed on the colon and then the anvil of the Ethicon 33 EEA was placed in the proximal bowel and the pursestring was tied. Dr. Acuna then went below and placed the EEA instrument transanally. The trocar was brought out through the left side of the staple line so that the left corner of the staple line was fully excised with the circular anastomosis. The instrument was connected to the anvil, closed and fired creating the circular anastomosis, which only crossed one portion of the TX 60 staple line. Once this was done, there was no tension on the anastomosis and the blood supply was excellent. Dr. Acuna then did colonoscopy to the cecum and no other lesions were seen in his colon. Dr. Acuna then insufflated air into the rectum with saline solution in the pelvis and no air leaks were identified, and the anastomosis was fully intact and the blood supply was excellent. The anastomosis was under no tension. Next, the abdominal cavity was irrigated thoroughly with 2 liters of saline solution in the pelvis and a liter of saline solution in the abdominal cavity and it was all irrigated free. Hemostasis was maintained throughout with electrocautery and ligature. A piece of fibrillar was placed in the pelvis floor posterior to the rectum for hemostasis and the omentum was placed in the left pelvic sidewall and laid over top of the pelvis totally occluding the pelvis from the main abdominal cavity. The bowels were then replaced in the abdominal cavity in an resident care technician manner and the abdominal cavity was then closed in layers using a double-stranded #1-PDS for the posterior rectus sheath. That muscle layer was irrigated thoroughly with a liter of saline solution, aspirated dry and then the anterior rectus sheath was closed with double stranded #1-PDS as well. The subcutaneous tissue was irrigated thoroughly with saline solution, aspirated dry and the wound was then closed with running 3-0 Vicryl subcuticular suture and dressings were applied. The drain that had been placed in the pelvis and had been previously brought out through our right lower quadrant stab wound was sutured into place. Dressings were applied. Sponge, needle and instrument counts were reported as correct. Estimated blood loss was 200 mL. Operating time was 2 hours and 5 minutes. MD FLAKITA Burnett/sincere , 04:32 PM , 04:47 PM [facility]
[2018-09-03 17:45] LABS: Anion Gap 12 meq/L (5-15); Blood Urea Nitrogen 7 mg/dL (7-18); Calcium 7.7 mg/dL (8.5-10.1); Carbon Dioxide 21.8 meq/L (21.0-32.0); Chloride 103 meq/L (98-107); Glomerular Filtration Rate Greater Than 89 mL/min (>89); Glucose,Random 323 mg/dL (74-106); Potassium 4.2 meq/L (3.5-5.1); Sodium 137 meq/L (136-145)
--- NOTE | 2018-09-03 18:12 | MH ---
cc: Kenji Corley MD, Sunil P MD Chaim,Malik GRANT DATE OF ADMISSION: 09/03/2018 CHIEF COMPLAINT: Sigmoid colon carcinoma. HISTORY OF PRESENT ILLNESS: This patient was in the hospital in May, in the emergency department with abdominal pain. A CT scan was done and seemed to showed diverticulitis. He continued to have poor bowel habits. He had never had a colonoscopy and he was referred to gastroenterology for a colonoscopy. Dr. Sparks did a colonoscopy on him about a month ago, and he had a near obstructing lesion of the sigmoid colon that was quite bulky. He was unable to pass the lesion and complete the colonoscopy. The patient was scheduled for a resection, and a preoperative CT scan of the chest was obtained, which showed 2 small lesions in the lung, and they recommended followup in a year with a CT scan. They were too small to characterize. His abdominal CT scan did not seem to show any metastases to the liver. The patient has diabetes mellitus and hypertension. He is morbidly obese and he is scheduled for a colectomy with anastomosis. We felt that there was a small chance that he would have a temporary diverting ileostomy. Past medical history, family history, social history and review of systems otherwise negative. PHYSICAL EXAMINATION: GENERAL: Well-developed, well-nourished male, in no acute distress. SKIN: Warm and dry. HEENT: Extraocular muscles intact. NECK: Supple. CHEST: Clear. HEART: S1, S2 is heard. No murmurs or gallops. ABDOMEN: Obese, soft, nontender, no masses. RECTAL: Exam in the office was within normal limits. I did a flexible sigmoidoscopy to 20 cm. It was limited somewhat due to stool, but I could not see the lesion. EXTREMITIES: Range of motion within normal limits. NEUROLOGIC: Grossly normal. IMPRESSION: Near obstructing lesion of the sigmoid colon. PLAN: Recommend colectomy with anastomosis. I have gone over all the risks, benefits and alternatives with him and his . They understood and wished to proceed. MD FLAKITA Burnett/don/raymundo , 04:57 PM , 05:04 PM
[2018-09-03] MEDS: Insulin NovoLIN Regular Correctional Sugar Inj SQ SCH ×2 (18:20→23:59)
[2018-09-03] MEDS ORDERED: Sodium Chloride 0.9% 2 ML Flush BID IV.FLUSH SCH (21:00)
[2018-09-03] MEDS: ceFAZolin 2 GM Premix Inj 2 GM/50 ML PIGGYBACK IV.SIG SCH (21:10)
[2018-09-04] MEDS: KCL 20 mEq/D5W/LR Inj 1,000 ML IV.CONT SCH ×2 (04:20→09:21)
[2018-09-04] MEDS: ceFAZolin 2 GM Premix Inj 2 GM/50 ML PIGGYBACK IV.SIG SCH ×2 (04:22→12:16)
[2018-09-04 04:27] LABS: Baso % (Auto) 0.1 % (0.0-2.0); Hematocrit 43.9 % (39.0-51.0); Hemoglobin 14.6 gm/dL (13.0-17.0); Lymph % (Auto) 7.1 % (9.0-44.0); Mean Corpuscular HGB Conc 33.2 % (32.0-36.0); Mean Corpuscular Hemoglobin 31.1 pg (27.0-34.0); Mean Corpuscular Volume 93.5 fL (80.0-100.0); Mean Platelet Volume 7.7 fL (7.0-11.0); Mono # (Auto) 1.7 th/mm3 (0.0-0.9); Mono % (Auto) 11.8 % (0.0-8.0); Neut # (Auto) 11.6 th/mm3 (1.8-7.7); Platelet Count 252 th/mm3 (150-450); Red Blood Count 4.69 mil/mm3 (4.50-5.90); Red Cell Distribution Width 13.4 % (11.6-17.2); White Blood Count 14.4 th/mm3 (4.0-11.0)
[2018-09-04 04:51] LABS: Anion Gap 12 meq/L (5-15); Blood Urea Nitrogen 8 mg/dL (7-18); Calcium 8.9 mg/dL (8.5-10.1); Carbon Dioxide 24.5 meq/L (21.0-32.0); Chloride 101 meq/L (98-107); Glomerular Filtration Rate Greater Than 89 mL/min (>89); Glucose,Random 385 mg/dL (74-106); Potassium 4.6 meq/L (3.5-5.1); Sodium 137 meq/L (136-145)
[2018-09-04] MEDS: Levothyroxine 125 MCG Tablet PO SCH (05:44)
[2018-09-04] MEDS: Insulin NovoLIN Regular Correctional Sugar Inj SQ SCH ×3 (06:14→17:07)
--- NOTE | 2018-09-04 07:16 | P.PNCS ---
Subjective Colorectal Surgery Post Op Day #: 1 Interval history: No N or V. Some pain controlled. Objective Result Diagrams: 09/04/18 03:35 09/04/18 03:35 Objective Remarks: Abd: soft,moderate tenderness. Dressing dry Assessment and Plan - Plan Transfer to 7 N Remove Dextrose from IV at 150/hr OOB D/C INJECTION MACHINE OPERATOR and [place] in AM CLD today
[2018-09-04] MEDS: amLODIPine 5 MG Tablet PO SCH (09:46)
[2018-09-04] MEDS: Pantoprazole Inj 40 MG Vial IV.PUSH SCH (09:48)
[2018-09-04] MEDS: Morphine Inj 30 MG/30 ML PCA.VIAL PCA PRN (19:18)
--- NOTE | 2018-09-04 21:28 | ECG ---
Date Performed: 09/03/2018 Time Performed: 12:27:58 PTAGE: 63 years EKG: Sinus rhythm ST DEVIATION AND MODERATE T-WAVE ABNORMALITY, CONSIDER ANTERIOR ISCHEMIA ABNORMAL ECG PREVIOUS TRACING : 03/14/2018 02.07 Since the previous tracing, no significant change noted DOCTOR: Holger Lira Interpretating Date/Time 09/04/2018 21:26:47
[2018-09-05] MEDS: Insulin NovoLIN Regular Correctional Sugar Inj SQ SCH ×3 (00:38→12:08)
[2018-09-05] MEDS ORDERED: LORazepam 1 MG Tablet PO PRN (03:33)
[2018-09-05] MEDS: Levothyroxine 125 MCG Tablet PO SCH (06:41)
--- NOTE | 2018-09-05 06:47 | XR ---
EXAM DATE: 09/05/2018 6:12 AM EDT AGE/SEX: 63 years / Male INDICATIONS: Short of breath. CLINICAL DATA: This is the patient's initial encounter. Patient reports that signs and symptoms have been present for 1 day and indicates a pain score of Nonresponsive. MEDICAL/SURGICAL HISTORY: . Diabetes mellitus type II. CABG. COMPARISON: No prior exams available for comparison. FINDINGS: Postoperative median sternotomy. Mild basilar airspace disease. No significant effusion. Cardiomegaly . No pneumothorax. CONCLUSION: Mild basilar airspace disease. No effusion or pneumothorax. Electronically signed by: Abhishek Garvin MD 09/05/2018 6:45 AM EDT
[2018-09-05 06:50] LABS: ABG Base Excess 1.9 mmol/L (-2-2); ABG PCO2 37 mmHg (38-42); ABG PO2 61 mmHg (61-120)
[2018-09-05 08:56] LABS: Albumin 2.8 g/dL (3.4-5.0); Anion Gap 13 meq/L (5-15); Aspartate Aminotransferase 57 U/L (15-37); Blood Urea Nitrogen 12 mg/dL (7-18); Calcium 8.9 mg/dL (8.5-10.1); Carbon Dioxide 24.5 meq/L (21.0-32.0); Chloride 103 meq/L (98-107); Glomerular Filtration Rate 85 mL/min (>89); Glucose,Random 218 mg/dL (74-106); Sodium 140 meq/L (136-145)
[2018-09-05] MEDS: Pantoprazole Inj 40 MG Vial IV.PUSH SCH (09:14)
[2018-09-05] MEDS: amLODIPine 5 MG Tablet PO SCH (09:20)
[2018-09-05 09:26] LABS: Alanine Aminotransferase 32 U/L (12-78); Alkaline Phosphatase 100 U/L (45-117); Total Protein 6.8 g/dL (6.4-8.2)
[2018-09-05] MEDS ORDERED: Dextrose 50% in Water 50 ML Vial IV.PUSH PRN (09:39)
[2018-09-05 10:20] LABS: Baso # (Auto) 0.1 th/mm3 (0.0-0.2); Baso % (Auto) 0.5 % (0.0-2.0); Hematocrit 38.7 % (39.0-51.0); Hemoglobin 13.3 gm/dL (13.0-17.0); Lymph # (Auto) 1.9 th/mm3 (1.0-4.8); Lymph % (Auto) 9.8 % (9.0-44.0); Mean Corpuscular HGB Conc 34.3 % (32.0-36.0); Mean Corpuscular Hemoglobin 31.5 pg (27.0-34.0); Mean Corpuscular Volume 91.9 fL (80.0-100.0); Mean Platelet Volume 7.4 fL (7.0-11.0); Mono # (Auto) 2.3 th/mm3 (0.0-0.9); Mono % (Auto) 12.2 % (0.0-8.0); Neut # (Auto) 14.9 th/mm3 (1.8-7.7); Neut % (Auto) 77.5 % (16.0-70.0); Platelet Count 219 th/mm3 (150-450); Red Blood Count 4.22 mil/mm3 (4.50-5.90); Red Cell Distribution Width 13.6 % (11.6-17.2); White Blood Count 19.3 th/mm3 (4.0-11.0)
[2018-09-05 10:42] LABS: Lymphocytes 11 % (9-44); Monocytes 10 % (0-8)
[2018-09-05 10:43] LABS: Platelet Estimate Normal (Normal); Platelet Morphology Normal (Normal); RBC Morphology Normal (Normal)
--- NOTE | 2018-09-05 11:17 | MB ---
cc: Jennifer Gallegos MD DATE: 09/05/2018 REASON FOR CONSULTATION: Postop agitation and confusion. HISTORY OF PRESENT ILLNESS: This is a 63-year-old man postop day, I believe #2, for sigmoid colon carcinoma. The patient has a history of hypertension, diabetes, obesity, possible sleep apnea. ALLERGIES TO MEDICATIONS: NONE LISTED. HOME MEDICINES: Please refer to MAR. SOCIAL HISTORY: He is , lives with his . Apparently, she states he drinks 2 cocktails a night, possibly more. Since surgery, he has been somewhat confused. His pain pump has been stopped. He has not been using any pain medicine for at least 24 hours. Ativan has been written for [facility] protocol. PHYSICAL EXAMINATION: VITAL SIGNS: His temperature is 97.1, heart rate 113, respiratory rate 17, blood pressure is 120/71, saturating at 94% on room air. NEUROLOGIC: He is confused, arousable, does not open his eyes, but follows commands, nods yes and no. He squeezes with both hands, wiggles his toes, was able to state his name, as well as his 's name, but could not tell me what the name of the hospital is. His mouth is very dry. He falls back asleep with his mouth open, snoring, seems to move and withdraw all 4 extremities, as stated, and follow commands. Cerebellar and gait cannot be assessed. LABORATORY DATA: Reviewed. His white count is 19.3, hemoglobin 13.3, platelets 219,000, hematocrit 38.7. Blood gas this morning, pH of 7.46, pCO2 of 37, pO2 61, bicarbonate 26. Chemistry GFR 85, glucose 218, total bilirubin 1.1. LFTs: AST 57, ALT 32, albumin 2.8. Chest x-ray shows mild basilar airspace disease. ASSESSMENT AND PLAN: A 63-year-old man status postop with carcinoma of the sigmoid with encephalopathy, delirium, may be alcohol related. Recommend getting an EEG. We will get a CT of the brain without contrast. Hold any pain medication. Use Ativan p.r.n. for agitation withdrawal symptoms and it is already on order. I did add the EEG in as well. If he remains agitated in the next 24 hours, then at that point, I will go ahead and get an MRI of the brain, but since he is moving everything less likely of a concern would be a stroke. We will continue to monitor and make further recommendations. MD CARISSA Malone/deann , 10:32 AM , 10:40 AM
--- NOTE | 2018-09-05 11:44 | P.HP ---
History of Present Illness Primary Care Physician: Malik Jordan DO History of Present Illness: 63-year-old white male admitted for colorectal cancer resection -postop day 2. Medicine consulted for medical management and deterioration in mental status. Patient was in his usual state of health in his postop state of intermittent somnolence and confusion when he was noted to become tachycardic this morning with more agitation, with otherwise persistent somnolence. It was no reports of any nausea vomiting or diarrhea noted. A chest x-ray was performed this morning and upon my independent review which shows nonspecific possible infiltrates in bilateral bases. EKG which I independently reviewed reviewed shows a slightly's sinus tachycardic rhythm with nonspecific ST segment changes. Patient has been on a morphine [employer] pump. His blood work demonstrated a persistently increasing white count. is at the bedside. Patient is snoring heavily and when I tried to talk to him he has very slurred speech but no facial droop. He slurs his name and falls asleep instantaneously. Inpatient Certification: I certify that the inpatient services were ordered in accordance with Medicare regulations governing the order. This includes certification that hospital inpatient services are reasonable and necessary and in the case of services not specified as inpatient-only under 42 CFR 419.22(n), that they are appropriately provided as inpatient services in accordance to with the 2-midnight benchmark under 43 CFR 412.3(e) Estimated Total Length of Stay (Days): 5 Plans for Post Hospital Care: Home Review of Systems All other systems reviewed negative except as stated in HPI PMFSH - History History Provided By: Patient - Medical History Medical History: Medical History (Last Reviewed 09/05/18 @ 11:38 by Sylvester Emery MD) Abdominal pain Arthritis Asthma CAD (coronary artery disease) Diabetes H/O acute myocardial infarction High cholesterol History of left heart catheterization Hypertension Hypothyroid SVT (supraventricular tachycardia) Sleep apnea - Surgical History Surgical History: Surgical History (Last Reviewed 09/05/18 @ 11:38 by Sylvester Emery MD) S/P CABG x 4 - Family History Family History: Family History (Last Updated 09/05/18 @ 11:38 by Sylvester Emery MD) Other Heart disease - Social History I have reviewed the patient's Social History: Yes - Tobacco History Second Hand Smoke Exposure: No Tobacco Use In Past 30 Days: Yes Smoking Status: Current every day smoker Tobacco Type: Cigars - Alcohol History How Often Do You Have a Drink Containing Alcohol: 2 to 3 times a week - Substance Use History Substance History: No History of Abuse - Immunization History Tetanus Immunization: >5 Years Hx Influenza Vaccine This Season: No Medications and Allergies Active Medications: Active Medications Hydrocodone Bitart/Acetaminophen ([place] 5/325) 1 tab PO Q4H PRN PRN Reason: PAIN SCALE 1 TO 4 Hydrocodone Bitart/Acetaminophen ([place] 5/325) 2 tab PO Q4H PRN PRN Reason: PAIN SCALE 5 TO 10 Albuterol (Albuterol Neb (Mia)) 2.5 mg NEB Q6HR NEB MIA Alvimopan (Entereg) 12 mg PO BID [facility] Stop: 09/10/18 21:01 Last Admin: 09/05/18 09:20 Dose: Not Given Amlodipine Besylate (Norvasc) 5 mg PO DAILY [facility] Last Admin: 09/05/18 09:20 Dose: Not Given Atorvastatin Calcium (Lipitor) 40 mg PO HS [facility] Last Admin: 09/04/18 20:23 Dose: 40 mg Benzocaine/Menthol (Chloraseptic Sore Throat Lozenge) 1 lozenge BUCCAL UNSCH PRN PRN Reason: SORE THROAT Dextrose (D50w Vial) 50 ml IV.PUSH UNSCH PRN PRN Reason: PER HYPOGLYCEMIA PROTOCOL Enalaprilat (Vasotec Inj) 1.25 mg IV.PUSH Q4H PRN PRN Reason: SBP > 160 mmHg Flumazenil (Romazecon Inj) 0.2 mg IV.PUSH Q1M PRN PRN Reason: OVERSEDATION Furosemide (Lasix Inj) 20 mg IV.PUSH Q12HR [facility] Stop: 09/06/18 09:01 Last Admin: 09/05/18 09:13 Dose: 20 mg Glucagon (Glucagon Inj) 1 mg OTHER UNSCH PRN PRN Reason: for Hypoglycemia Protocol Potassium Chloride (Kcl 40 Meq Premix Inj) 40 meq in 100 mls @ 25 mls/hr IV.SIG UNSCH PRN PRN Reason: for K+ level < 3.0 mEq/L Potassium Chloride (Kcl 20 Meq Premix Inj) 20 meq in 100 mls @ 50 mls/hr IV.SIG UNSCH PRN PRN Reason: for K+ level 3.0-3.5 Potassium Chloride 20 meq/ (Lactated Ringer's) 1,010 mls @ 100 mls/hr IV.CONT .Q10H6M [facility] Last Admin: 09/05/18 04:00 Dose: 100 mls/hr Insulin Human Regular (Novolin R Correctional Sugar Inj) 0 units SQ Q6HR [facility]; Protocol Last Admin: 09/05/18 06:41 Dose: 4 units Ketorolac Tromethamine (Toradol Inj) 15 mg IV.PUSH Q6H PRN PRN Reason: BREAKTHROUGH PAIN Stop: 09/06/18 16:48 Labetalol HCl (Trandate Inj) 10 mg IV.PUSH ONCE ONE Stop: 09/05/18 11:46 Levothyroxine Sodium (Synthroid) 125 mcg PO DAILY@0600 [facility] Last Admin: 09/05/18 06:41 Dose: Not Given Lorazepam (Ativan) 1 mg PO Q4H PRN PRN Reason: for CIWA 8-10 Lorazepam (Ativan) 2 mg PO Q2H PRN PRN Reason: for CIWA 11-14 Lorazepam (Ativan Inj) 2 mg IV.PUSH Q2H PRN PRN Reason: for CIWA 11-14 Lorazepam (Ativan Inj) 2 mg IV.PUSH Q1H PRN PRN Reason: for CIWA 15-20 Lorazepam (Ativan Inj) 1 mg IV.PUSH Q4H PRN PRN Reason: for CIWA 8-10 Last Admin: 09/05/18 07:36 Dose: 1 mg Lorazepam (Ativan Inj) 2 mg IV.PUSH Q15M PRN PRN Reason: for CIWA > 20 Metoprolol Succinate (Toprol Xl) 25 mg PO DAILY [facility] Last Admin: 09/05/18 09:20 Dose: Not Given Naloxone HCl (Narcan Inj) 0.4 mg IV.PUSH UNSCH PRN PRN Reason: Resp rate < 10 Ondansetron HCl (Zofran Inj) 4 mg IV.PUSH Q6H PRN PRN Reason: NAUSEA OR VOMITING Pantoprazole Sodium (Protonix Inj) 40 mg IV.PUSH DAILY [facility] Last Admin: 09/05/18 09:14 Dose: 40 mg Sodium Chloride (Ns Flush) 2 ml IV.FLUSH BID [facility] Last Admin: 09/05/18 09:20 Dose: 2 ml Sodium Chloride (Ns Flush) 2 ml IV.FLUSH UNSCH PRN PRN Reason: FLUSH AFTER USING IV ACCESS Last Admin: 09/04/18 09:47 Dose: 2 ml Zolpidem Tartrate (Ambien) 5 mg PO HS PRN PRN Reason: INSOMNIA Allergies Allergy/AdvReac Type Severity Reaction Status Date / Time No Known Allergies Allergy Verified 09/02/18 10:33 Home Medications Medication Instructions Recorded Confirmed Type amlodipine 5 mg PO DAILY 09/02/18 09/03/18 History atorvastatin 40 mg PO HS 09/02/18 09/03/18 History glimepiride 4 mg PO QAM 09/02/18 09/03/18 History levothyroxine 125 mcg PO DAILY 09/02/18 09/03/18 History metoprolol succinate 25 mg PO DAILY 09/02/18 09/03/18 History polyethylene glycol 3350 [Miralax] 17 g PO DAILY PRN 09/02/18 09/03/18 History Exam Vital signs: Vital Signs 09/04/18 15:00 09/04/18 20:00 09/05/18 00:27 Temperature 97.5 F L 97.5 F L 98 F Pulse Rate 102 H 89 80 Respiratory Rate 18 18 20 Blood Pressure 125/84 152/88 H 161/93 H Pulse Oximetry 94 L 95 09/05/18 03:00 09/05/18 08:00 Temperature 98.5 F 97.1 F L Pulse Rate 111 H 113 H Respiratory Rate 18 17 Blood Pressure 145/92 H 120/71 Pulse Oximetry 93 L 94 L Intake & Output 09/04/18 09/05/18 09/05/18 18:59 06:59 18:59 Intake Total 2860 / 2860 1010 / 1010 Output Total 1480 / 1480 590 / 590 30 / 30 Balance 1380 / 1380 420 / 420 -30 / -30 Weight 96.8 kg Intake: IV 2260 / 2260 1010 / 1010 KCl Inj 20 MEQ In LR 1000 mL 1010 / 1010 1010 / 1010 Inj 1,000 ML @ 100 mls/hr IV. CONT .Q10H6M MIA Rx#:[id number] Ancef 2 GM Premix Inj 2 gm In 50 / 50 50 ml @ 100 mls/hr IV.SIG Q8H MIA Rx#:[id number] Flagyl 500 MG Inj 100 ML @ 100 200 / 200 mls/hr IV.SIG Q8H [facility] Rx#: [id number] Oral 600 / 600 Output: Urine 480 / 480 500 / 500 Urine Amount (Catheter) 1000 / 1000 Indwelling Urethral Catheter 1000 / 1000 Wound Drainage 30 / 30 Right Abdomen ALEKSANDER Drain Other: Date of Last Bowel Movement 09/02/18 Narrative: VS: afebrile GENERAL: Snoring in bed, wakes up minimally to sternal rub to try to have a conversation with just a few words but easily falls asleep again SKIN: Warm and dry. EYES: No scleral icterus. No injection or drainage. ENT: No nasal bleeding or discharge. Mucous membranes pink and moist. CARDIOVASCULAR: Tachycardic rate, regular rhythm, no murmurs RESPIRATORY: No accessory muscle use. Clear to auscultation. Breath sounds equal bilaterally. GASTROINTESTINAL: Abdomen is in an abdominal binder with a drain in the right lower quadrant. Incision looks clean dry and intact Extremities: No clubbing, cyanosis, or edema. No obvious deformities. MUSCULOSKELETAL: adequate muscle bulk and tone for age and habitus NEUROLOGICAL: Very somnolent, snoring no obvious cranial nerve deficits. No facial droop. Does demonstrate slurred speech. PSYCHIATRIC: Appropriate mood and affect; insight and judgment compromised at this time due to somnolence. Results - Labs CBC & Chem 7: 09/05/18 09:44 09/05/18 06:25 Labs: Laboratory Results - last 24 hr 09/04/18 09/04/18 09/04/18 11:59 16:27 17:22 WBC RBC Hgb Hct MCV MCH MCHC RDW Plt Count MPV Prelim Diff (Auto) Neut % (Auto) Lymph % (Auto) [place] % (Auto) Eos % (Auto) Baso % (Auto) Neut # (Auto) Lymph # (Auto) [place] # (Auto) Eos # (Auto) Baso # (Auto) WBC Differential Seg Neuts % (Manual) Lymphocytes % (Manual) Monocytes % (Manual) Basophils % (Manual) Abs Neuts (Manual) Differential Comment Platelet Estimate Platelet Morphology RBC Morphology Puncture Site Patient Temperature O2 Saturation ABG pH ABG pCO2 ABG pO2 ABG HCO3 ABG O2 Content ABG Base Excess ABG Methemoglobin Edil Test Hemoglobin Carboxyhemoglobin O2 Delivery Device Liter Flow Critical Value Sodium Potassium Chloride Carbon Dioxide Anion Gap BUN Creatinine Estimated GFR POC Glucose 320 H 284 H 229 H Random Glucose Calcium Total Bilirubin AST ALT Alkaline Phosphatase Total Protein Albumin 09/05/18 09/05/18 09/05/18 00:19 04:30 06:25 WBC RBC Hgb Hct MCV MCH MCHC RDW Plt Count MPV Prelim Diff (Auto) Neut % (Auto) Lymph % (Auto) [place] % (Auto) Eos % (Auto) Baso % (Auto) Neut # (Auto) Lymph # (Auto) [place] # (Auto) Eos # (Auto) Baso # (Auto) WBC Differential Seg Neuts % (Manual) Lymphocytes % (Manual) Monocytes % (Manual) Basophils % (Manual) Abs Neuts (Manual) Differential Comment Platelet Estimate Platelet Morphology RBC Morphology Puncture Site Patient Temperature O2 Saturation ABG pH ABG pCO2 ABG pO2 ABG HCO3 ABG O2 Content ABG Base Excess ABG Methemoglobin Edil Test Hemoglobin Carboxyhemoglobin O2 Delivery Device Liter Flow Critical Value Sodium 140 Potassium 4.0 Chloride 103 Carbon Dioxide 24.5 Anion Gap 13 BUN 12 Creatinine 0.90 Estimated GFR 85 L POC Glucose 273 H 215 H Random Glucose 218 H D Calcium 8.9 Total Bilirubin 1.1 H AST 57 H ALT 32 Alkaline Phosphatase 100 Total Protein 6.8 Albumin 2.8 L 09/05/18 09/05/18 09/05/18 06:37 09:44 11:07 WBC 19.3 H RBC 4.22 L Hgb 13.3 Hct 38.7 L MCV 91.9 MCH 31.5 MCHC 34.3 RDW 13.6 Plt Count 219 MPV 7.4 Prelim Diff (Auto) Slide review pending Neut % (Auto) 77.5 H Lymph % (Auto) 9.8 [place] % (Auto) 12.2 H Eos % (Auto) 0.0 Baso % (Auto) 0.5 Neut # (Auto) 14.9 H Lymph # (Auto) 1.9 [place] # (Auto) 2.3 H Eos # (Auto) 0.0 Baso # (Auto) 0.1 WBC Differential Manual diff final Seg Neuts % (Manual) 78 H Lymphocytes % (Manual) 11 Monocytes % (Manual) 10 H Basophils % (Manual) 1 Abs Neuts (Manual) 15.1 H Differential Comment . Platelet Estimate Normal Platelet Morphology Normal RBC Morphology Normal Puncture Site Right radial Patient Temperature 98.6 O2 Saturation 88 L* ABG pH 7.46 H ABG pCO2 37 L ABG pO2 61 ABG HCO3 26 ABG O2 Content 15.4 ABG Base Excess 1.9 ABG Methemoglobin 1.2 Edil Test Present Hemoglobin 12.4 Carboxyhemoglobin 1.5 O2 Delivery Device Nasal cannula Liter Flow 2.00 Critical Value Yes Sodium Potassium Chloride Carbon Dioxide Anion Gap BUN Creatinine Estimated GFR POC Glucose 238 H Random Glucose Calcium Total Bilirubin AST ALT Alkaline Phosphatase Total Protein Albumin - Imaging Impressions Chest X-Ray 09/05/18 06:12 CONCLUSION: Mild basilar airspace disease. No effusion or pneumothorax. Caprini VTE Risk Assessment Caprini VTE Risk Assessment: Moderate/High Risk (score >= 2) Caprini Risk Assessment Model: Point Value = 1 Point Value = 2 Point Value = 3 Point Value = 5 Age 41-60 Minor surgery BMI > 25 kg/m2 Swollen legs Varicose veins or History of unexplained or recurrent spontaneous Oral contraceptives or hormone replacement Sepsis (< 1 month) Serious lung disease, including pneumonia (< 1 month) Abnormal pulmonary function Acute myocardial infarction Congestive heart failure (< 1 month) History of inflammatory bowel disease Medical patient at bed rest Age 61-74 Arthroscopic surgery Major open surgery (> 45 min) Laparoscopic surgery (> 45 min) Malignancy Confined to bed (> 72 hours) Immobilizing plaster cast Central venous access Age >= 75 History of VTE Family history of VTE Factor V Leiden Prothrombin [id number] Lupus anticoagulant Anticardiolipin antibodies Elevated serum homocysteine Heparin-induced thrombocytopenia Other congenital or acquired thrombophilia Stroke (< 1 month) Elective arthroplasty Hip, pelvis, or leg fracture Acute spinal cord injury (< 1 month) Prophylaxis Regimen: Total Risk Factor Score Risk Level Prophylaxis Regimen 0-1 Low Early ambulation 2 Moderate Order ONE of the following: *Sequential Compression Device (SCD) *Heparin 5000 units SQ BID 3-4 Higher Order ONE of the following medications: *Heparin 5000 units SQ TID *Enoxaparin/Lovenox 40 mg SQ daily (WT < 150 kg, CrCl > 30 mL/min) *Enoxaparin/Lovenox 30 mg SQ daily (WT < 150 kg, CrCl > 10-29 mL/min) *Enoxaparin/Lovenox 30 mg SQ BID (WT < 150 kg, CrCl > 30 mL/min) AND/OR *Sequential Compression Device (SCD) 5 or more Highest Order ONE of the following medications: *Heparin 5000 units SQ TID (Preferred with Epidurals) *Enoxaparin/Lovenox 40 mg SQ daily (WT < 150 kg, CrCl > 30 mL/min) *Enoxaparin/Lovenox 30 mg SQ daily (WT < 150 kg, CrCl > 10-29 mL/min) *Enoxaparin/Lovenox 30 mg SQ BID (WT < 150 kg, CrCl > 30 mL/min) AND *Sequential Compression Device (SCD) Assessment and Plan - Plan 63-year-old white male originally admitted for colon resection for carcinoma. Medicine consulted for decline in mental status. Colon resection Pain medication by surgery, will hold off on further pain medicines given his somnolence Somnolence Delirium/pain medications/possible infection or other etiology Hold further pain medications, treat as below -CT head pending, neurology following Tachycardia with recent surgery, It is imperative to rule out a pulmonary emboli we will proceed with a CTA - 1x dose of labetalol with repeat EKG to further elucidate rhythm Bibasilar infiltrates Unclear if this is truly infectious versus fluid -We will order BNP and follow-up with lung gracia as demonstrated on CTA for further clarity Uncontrolled diabetes Will upgrade from medium dose to high-dose sliding scale and add on low-dose Levemir at night Coronary artery disease -Continue home Lipitor, will resume aspirin once cleared with surgery
[2018-09-05] MEDS ORDERED: Labetalol HCl Inj 100 MG/20 ML Vial IV.PUSH ONE (11:45)
--- NOTE | 2018-09-05 11:45 | P.CON ---
History of Present Illness Primary Care Provider: Malik Jordan DO History of Present Illness: 63-year-old white male admitted for colorectal cancer resection with Left colectomy,LAR,Intraop colonoscopy -postop day 2. Medicine consulted for medical management and deterioration in mental status. Patient was in his usual state of health in his postop state of intermittent somnolence and confusion when he was noted to become tachycardic this morning with more agitation, with otherwise persistent somnolence. It was no reports of any nausea vomiting or diarrhea noted. A chest x-ray was performed this morning and upon my independent review which shows nonspecific possible infiltrates in bilateral bases. EKG which I independently reviewed reviewed shows a slightly's sinus tachycardic rhythm with nonspecific ST segment changes. Patient has been on a morphine [employer] pump. His blood work demonstrated a persistently increasing white count. ABG did not demonstrate any acidosis or alkalosis. is at the bedside. Patient is snoring heavily and when I tried to talk to him he has very slurred speech but no facial droop. He slurs his name and falls asleep instantaneously. [facility] - History History Provided By: Patient - Medical History Medical History: Medical History (Last Reviewed 09/05/18 @ 11:38 by Sylvester Emery MD) Abdominal pain Arthritis Asthma CAD (coronary artery disease) Diabetes H/O acute myocardial infarction High cholesterol History of left heart catheterization Hypertension Hypothyroid SVT (supraventricular tachycardia) Sleep apnea - Surgical History Surgical History: Surgical History (Last Reviewed 09/05/18 @ 11:38 by Sylvester Emery MD) S/P CABG x 4 - Family History Family History: Family History (Last Updated 09/05/18 @ 11:38 by Sylvester Emery MD) Other Heart disease - Tobacco History Second Hand Smoke Exposure: No Tobacco Use In Past 30 Days: Yes Smoking Status: Current every day smoker Tobacco Type: Cigars - Alcohol History How Often Do You Have a Drink Containing Alcohol: 2 to 3 times a week - Substance Use History Substance History: No History of Abuse - Immunization History Tetanus Immunization: >5 Years Hx Influenza Vaccine This Season: No Medications and Allergies Active Medications: Active Medications Hydrocodone Bitart/Acetaminophen ([place] 5/325) 1 tab PO Q4H PRN PRN Reason: PAIN SCALE 1 TO 4 Hydrocodone Bitart/Acetaminophen ([place] 5/325) 2 tab PO Q4H PRN PRN Reason: PAIN SCALE 5 TO 10 Albuterol (Albuterol Neb (Mia)) 2.5 mg NEB Q6HR NEB MIA Alvimopan (Entereg) 12 mg PO BID [facility] Stop: 09/10/18 21:01 Last Admin: 09/05/18 09:20 Dose: Not Given Amlodipine Besylate (Norvasc) 5 mg PO DAILY [facility] Last Admin: 09/05/18 09:20 Dose: Not Given Atorvastatin Calcium (Lipitor) 40 mg PO HS [facility] Last Admin: 09/04/18 20:23 Dose: 40 mg Benzocaine/Menthol (Chloraseptic Sore Throat Lozenge) 1 lozenge BUCCAL UNSCH PRN PRN Reason: SORE THROAT Dextrose (D50w Vial) 50 ml IV.PUSH UNSCH PRN PRN Reason: PER HYPOGLYCEMIA PROTOCOL Enalaprilat (Vasotec Inj) 1.25 mg IV.PUSH Q4H PRN PRN Reason: SBP > 160 mmHg Flumazenil (Romazecon Inj) 0.2 mg IV.PUSH Q1M PRN PRN Reason: OVERSEDATION Furosemide (Lasix Inj) 20 mg IV.PUSH Q12HR [facility] Stop: 09/06/18 09:01 Last Admin: 09/05/18 09:13 Dose: 20 mg Glucagon (Glucagon Inj) 1 mg OTHER UNSCH PRN PRN Reason: for Hypoglycemia Protocol Potassium Chloride (Kcl 40 Meq Premix Inj) 40 meq in 100 mls @ 25 mls/hr IV.SIG UNSCH PRN PRN Reason: for K+ level < 3.0 mEq/L Potassium Chloride (Kcl 20 Meq Premix Inj) 20 meq in 100 mls @ 50 mls/hr IV.SIG UNSCH PRN PRN Reason: for K+ level 3.0-3.5 Potassium Chloride 20 meq/ (Lactated Ringer's) 1,010 mls @ 100 mls/hr IV.CONT .Q10H6M [facility] Last Admin: 09/05/18 04:00 Dose: 100 mls/hr Insulin Human Regular (Novolin R Correctional Sugar Inj) 0 units SQ Q6HR [facility]; Protocol Last Admin: 09/05/18 06:41 Dose: 4 units Ketorolac Tromethamine (Toradol Inj) 15 mg IV.PUSH Q6H PRN PRN Reason: BREAKTHROUGH PAIN Stop: 09/06/18 16:48 Labetalol HCl (Trandate Inj) 10 mg IV.PUSH ONCE ONE Stop: 09/05/18 11:46 Last Admin: 09/05/18 11:40 Dose: 10 mg Levothyroxine Sodium (Synthroid) 125 mcg PO DAILY@0600 [facility] Last Admin: 09/05/18 06:41 Dose: Not Given Lorazepam (Ativan) 1 mg PO Q4H PRN PRN Reason: for CIWA 8-10 Lorazepam (Ativan) 2 mg PO Q2H PRN PRN Reason: for CIWA 11-14 Lorazepam (Ativan Inj) 2 mg IV.PUSH Q2H PRN PRN Reason: for CIWA 11-14 Lorazepam (Ativan Inj) 2 mg IV.PUSH Q1H PRN PRN Reason: for CIWA 15-20 Lorazepam (Ativan Inj) 1 mg IV.PUSH Q4H PRN PRN Reason: for CIWA 8-10 Last Admin: 09/05/18 07:36 Dose: 1 mg Lorazepam (Ativan Inj) 2 mg IV.PUSH Q15M PRN PRN Reason: for CIWA > 20 Metoprolol Succinate (Toprol Xl) 25 mg PO DAILY [facility] Last Admin: 09/05/18 09:20 Dose: Not Given Naloxone HCl (Narcan Inj) 0.4 mg IV.PUSH UNSCH PRN PRN Reason: Resp rate < 10 Ondansetron HCl (Zofran Inj) 4 mg IV.PUSH Q6H PRN PRN Reason: NAUSEA OR VOMITING Pantoprazole Sodium (Protonix Inj) 40 mg IV.PUSH DAILY [facility] Last Admin: 09/05/18 09:14 Dose: 40 mg Sodium Chloride (Ns Flush) 2 ml IV.FLUSH BID [facility] Last Admin: 09/05/18 09:20 Dose: 2 ml Sodium Chloride (Ns Flush) 2 ml IV.FLUSH UNSCH PRN PRN Reason: FLUSH AFTER USING IV ACCESS Last Admin: 09/04/18 09:47 Dose: 2 ml Zolpidem Tartrate (Ambien) 5 mg PO HS PRN PRN Reason: INSOMNIA Allergies Allergy/AdvReac Type Severity Reaction Status Date / Time No Known Allergies Allergy Verified 09/02/18 10:33 Home Medications Medication Instructions Recorded Confirmed Type amlodipine 5 mg PO DAILY 09/02/18 09/03/18 History atorvastatin 40 mg PO HS 09/02/18 09/03/18 History glimepiride 4 mg PO QAM 09/02/18 09/03/18 History levothyroxine 125 mcg PO DAILY 09/02/18 09/03/18 History metoprolol succinate 25 mg PO DAILY 09/02/18 09/03/18 History polyethylene glycol 3350 [Miralax] 17 g PO DAILY PRN 09/02/18 09/03/18 History Physical Exam Vital signs: Vital Signs 09/04/18 15:00 09/04/18 20:00 09/05/18 00:27 Temperature 97.5 F L 97.5 F L 98 F Pulse Rate 102 H 89 80 Respiratory Rate 18 18 20 Blood Pressure 125/84 152/88 H 161/93 H Pulse Oximetry 94 L 95 09/05/18 03:00 09/05/18 08:00 Temperature 98.5 F 97.1 F L Pulse Rate 111 H 113 H Respiratory Rate 18 17 Blood Pressure 145/92 H 120/71 Pulse Oximetry 93 L 94 L Intake & Output 09/04/18 09/05/18 09/05/18 18:59 06:59 18:59 Intake Total 2860 / 2860 1010 / 1010 Output Total 1480 / 1480 590 / 590 30 / 30 Balance 1380 / 1380 420 / 420 -30 / -30 Weight 96.8 kg Intake: IV 2260 / 2260 1010 / 1010 KCl Inj 20 MEQ In LR 1000 mL 1010 / 1010 1010 / 1010 Inj 1,000 ML @ 100 mls/hr IV. CONT .Q10H6M MIA Rx#:[id number] Ancef 2 GM Premix Inj 2 gm In 50 / 50 50 ml @ 100 mls/hr IV.SIG Q8H MIA Rx#:[id number] Flagyl 500 MG Inj 100 ML @ 100 200 / 200 mls/hr IV.SIG Q8H MIA Rx#: [id number] Oral 600 / 600 Output: Urine 480 / 480 500 / 500 Urine Amount (Catheter) 1000 / 1000 Indwelling Urethral Catheter 1000 / 1000 Wound Drainage 90 / 90 30 / 30 Right Abdomen ALEKSANDER Drain 90 / 90 30 / 30 Other: Date of Last Bowel Movement 09/02/18 Narrative: VS: afebrile GENERAL: Snoring in bed, responds minimally to sternal rub, easily falls back asleep SKIN: Warm and dry. EYES: Pupils equal and round. No scleral icterus. No injection or drainage. ENT: No nasal bleeding or discharge. Mucous membranes pink and moist. CARDIOVASCULAR: Tachycardic rate, regular rhythm, no murmurs RESPIRATORY: No accessory muscle use. No obvious crackles and rales heard but this is impaired due to the patient's significant snoring/transmitted upper airway noise GASTROINTESTINAL: Abdomen soft, non-tender, nondistended. Extremities: No clubbing, cyanosis, or edema. No obvious deformities. MUSCULOSKELETAL: adequate muscle bulk and tone for age and habitus NEUROLOGICAL: No obvious cranial nerve deficits. No facial droop but does demonstrate slurred speech when trying to talk. Very somnolent, does follow motor commands of fist squeeze when prompted. PSYCHIATRIC: Appropriate mood and affect; insight and judgment normal. - Urinary Catheter Management Indwelling Urethral Catheter Cath placed during this visit: yes Reason for continuing: Hourly intake/output Insertion date: 09/03/18 Insertion time: 13:46 Assessment and Plan - Plan 63-year-old white male originally admitted for colon resection for carcinoma. Medicine consulted for decline in mental status/obtunded. Colon cancer -Left colectomy, LAR, Intraop colonoscopy Pain medication by surgery, will hold off on further pain medicines given his somnolence Somnolence Delirium/pain medications/possible infection or other etiology Hold further pain medications, treat as below -CT head pending and EEG, neurology following Tachycardia with recent surgery, It is imperative to rule out a pulmonary emboli we will proceed with a CTA -Could also be due to withdrawal given that the patient does drink and has a cirrhotic liver - 1x dose of labetalol with repeat EKG to further elucidate rhythm Bibasilar infiltrates Unclear if this is truly infectious versus fluid -We will order BNP and follow-up with lung gracia as demonstrated on CTA for further clarity Uncontrolled diabetes Will upgrade from medium dose to high-dose sliding scale and add on low-dose Levemir at night Coronary artery disease -Continue home Lipitor and Toprol-XL -Should be on aspirin, will start aspirin once cleared with surgery Start DVT ppx once cleared w/ surgery Addendum: Dr. Norman from radiology personally relayed to me multiple hypo- densities within the CT head scan which is likely from substantial motion artifact but unable to definitively rule out infarcts, can confidently say no hemorrhages seen. Pulmonary CTA shows free air which is typical for postop, no embolus seen. Patient was transferred to the ICU. Then ICU nursing paged nursing reporting that the patient is getting very tachycardic in the 120s and 130s persistently, he is somnolent and very agitated at the same time. Nurses also reports to me unequal pupils. Case discussed with critical care who will take over from a medical standpoint.
[2018-09-05] MEDS ORDERED: Insulin NovoLOG Aspart Correctional Sugar Inj SQ SCH (12:00)
[2018-09-05 12:02] LABS: CKMB Percent 1.9 % (0.0-4.0); Creatine Kinase MB 14.7 ng/mL (0.5-3.6)
--- NOTE | 2018-09-05 12:47 | ECG ---
Date Performed: 09/05/2018 Time Performed: 06:22:20 PTAGE: 63 years EKG: Sinus tachycardia. Right ventricular conduction disturbance Diffuse nonspecific ST-T change Compared to previous tracing, heart rate is somewhat faster, otherwise no signficant change. Abnorma l ECG PREVIOUS TRACING : 09/03/2018 12.24.58 DOCTOR: Ellis Kwon Interpretating Date/Time 09/05/2018 12:46:39
--- NOTE | 2018-09-05 13:43 | CT ---
EXAM DATE: 09/05/2018 12:28 PM EDT AGE/SEX: 63 years / Male INDICATIONS: Post-op confusion. Altered mental status. CLINICAL DATA: This is the patient's initial encounter. Patient reports that signs and symptoms have been present for 1 day and indicates a pain score of Nonresponsive. MEDICAL/SURGICAL HISTORY: Asthma. Cardiovascular disease. Diabetes. [place], hypertension CABG. Cho lecystectomy. RADIATION DOSE: 56.35 CTDI (mGy) ; Patient motion COMPARISON: No prior exams available for comparison. TECHNIQUE: CT of the head without contrast. Using automated exposure control and adjustment of the mA and/or kV according to patient size, radiation dose was kept as low as reasonably achievable to ob tain optimal diagnostic quality images. DICOM format image data is available electronically for revi ew and comparison. FINDINGS: Cerebrum: Moderate diffuse cerebral atrophy. Small right basal ganglia lacunar infarct. The ventricl es are normal for degree of atrophy. No evidence of midline shift, mass lesion, hemorrhage or acute i nfarction. No extraaxial fluid collections are seen. Posterior Fossa: There is significant motion artifact limiting evaluation of the posterior fossa. Ho wever, there are large apparent regions of decreased density in the cerebellar hemispheres bilaterall y. Extracranial: The visualized portion of the orbits is intact. Skull: The calvaria is intact. No evidence of skull fracture. CONCLUSION: 1. Limited evaluation of the posterior fossa due to patient motion. However, there are large regions of bilateral hemispheric hypodensities concerning for possible cerebellar hemispheric infarcts. Reliability Manager nicity is uncertain given lack of prior exams and suboptimal visualization. MRI examination may be pe rformed as clinically appropriate. 2. Moderate diffuse cerebral atrophy that is slightly more than expected for stated age. . Electronically signed by: Jc Sebastian MD 09/05/2018 1:42 PM EDT
--- NOTE | 2018-09-05 13:51 | CT ---
EXAM DATE: 09/05/2018 12:28 PM EDT AGE/SEX: 63 years / Male INDICATIONS: Short of breath. CLINICAL DATA: This is the patient's initial encounter. Patient reports that signs and symptoms have been present for 1 day and indicates a pain score of Nonresponsive. MEDICAL/SURGICAL HISTORY: Asthma. Diabetes. Cardiovascular disease. [place], hypertension CABG. Cho lecystectomy. Equipment failure, suboptimal timing. RADIATION DOSE: 11.08 CTDI (mGy) ; Patient motion COMPARISON: [facility], CHEST 1V SINGLE AP, 09/05/2018. . TECHNIQUE: Volumetric scanning was performed using a multi-row detector CT scanner during bolus infu codie of 70 ml Omnipaque 350 (iohexol) nonionic water-soluble contrast as a single exam dose. The christal a was post processed with a variety of visualization algorithms including full volume maximum intensi ty projection and sliding thin slab reformation. Using automated exposure control and adjustment of the mA and/or kV according to patient size, radiation dose was kept as low as reasonably achievable t o obtain optimal diagnostic quality images. DICOM format image data is available electronically for review and comparison. FINDINGS: Pulmonary Arteries: Suboptimal visualization of the pulmonary arteries beyond the proximal segmental branches. No evidence for focal filling defect in the central segmental branches. Lung: Focal airspace consolidation at the extreme lung bases bilaterally. Mild linear parenchymal op acities in the anterior right upper lobe. Pleura: No effusion, significant pleural thickening or pneumothorax. Mediastinum: Heart is unremarkable. Prominent coronary calcifications and postsurgical features of p rior CABG. No significant mediastinal adenopathy. Osseous Structures: No abnormal focal lytic or blastic bony lesions. Other: There is a [id number] amount of free air in the visualized upper abdomen. Diffusely di lated fluid-filled esophagus. Diffusely decreased hepatic attenuation consistent with hepatic steatos is. CONCLUSION: 1. No CT evidence for pulmonary artery embolism to the proximal segmental branches. More distal segm ental and subsegmental branches are incompletely evaluated. 2. [id number] amount of free intraperitoneal air in the visualized portions of the upper abdo men. Etiology is unclear on this exam. 3. Mild bibasilar airspace consolidation, presumably atelectasis. 4. Diffusely dilated fluid-filled esophagus. 5. Prominent coronary artery calcifications with postsurgical features of prior CABG. 6. Prominent hepatic steatosis. Electronically signed by: Jc Sebastian MD 09/05/2018 1:49 PM EDT
[2018-09-05] MEDS ORDERED: Midazolam Inj 5 MG/ML 1 ML Vial ONE (14:55)
[2018-09-05] MEDS ORDERED: Midazolam 50 MG/50 ML Inj 50 MG/50 ML BAG IV.CONT PRN (15:03)
[2018-09-05] MEDS ORDERED: Midazolam Inj 5 MG/ML 1 ML Vial IV.PUSH STA (15:05)
[2018-09-05] MEDS ORDERED: Succinylcholine Inj 200 MG/10 ML Vial IV.PUSH STA (15:06)
--- NOTE | 2018-09-05 15:13 | P.CONCC ---
History of Present Illness Service: Critical Care Medicine Consult date: 09/05/18 Requesting Physician: Sylvester Emery Reason for Consult: obtundation Primary Care Provider: Malik Jordan DO History of Present Illness: This is a 63-year-old male who is postop day 2 status post colectomy for colon cancer. Postop day 1 he was quite agitated and was started on a [place] protocol. He continues to be agitated and then became quite altered and then obtunded. Emergent CT head demonstrates questionable hypodensities in the posterior fossa. He arrives to the ICU for higher level of care. I evaluated the patient on immediate arrival to the ICU. He was quite obtunded and altered only responsive to sternal rub. I discussed his care with the hospitalist attending. I also discussed his care with his who is concerned about his acute change in mentation. We proceeded with emergent intubation. 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 I discussed the case extensively with the interventional neuroradiology team as well as neurosurgery, neurology, cardiology, and his primary surgery team. Given subacute nature of the stroke and that it may be greater than 24 hours out, we consented the for the high risk of hemorrhagic conversion with intervention, but then proceeded with endovascular emergent intervention. No additional information is available the patient due to his somnolence. Review of systems is unobtainable. Review of Systems unobtainable due to mental condition, unobtainable due to mental status PMFSH - History History Provided By: Patient, Medical Record - Medical History Medical History: Medical History (Last Reviewed 09/06/18 @ 00:27 by Robby Rowe MD) Abdominal pain Arthritis Asthma CAD (coronary artery disease) Diabetes H/O acute myocardial infarction High cholesterol History of left heart catheterization Hypertension Hypothyroid SVT (supraventricular tachycardia) Sleep apnea - Surgical History Surgical History: Surgical History (Last Reviewed 09/06/18 @ 00:27 by Robby Rowe MD) S/P CABG x 4 - Family History Family History: Family History (Last Updated 09/05/18 @ 11:38 by Sylvester Emery MD) Other Heart disease - Social History I have reviewed the patient's Social History: Yes - Tobacco History Second Hand Smoke Exposure: No Tobacco Use In Past 30 Days: Yes Smoking Status: Current every day smoker Tobacco Type: Cigars - Alcohol History How Often Do You Have a Drink Containing Alcohol: 2 to 3 times a week - Substance Use History Substance History: No History of Abuse - Immunization History Tetanus Immunization: >5 Years Hx Influenza Vaccine This Season: No Medications and Allergies Active Medications: Active Medications Hydrocodone Bitart/Acetaminophen ([place] 5/325) 1 tab PO Q4H PRN PRN Reason: PAIN SCALE 1 TO 4 Hydrocodone Bitart/Acetaminophen ([place] 5/325) 2 tab PO Q4H PRN PRN Reason: PAIN SCALE 5 TO 10 Albuterol (Albuterol Neb (Mia)) 2.5 mg NEB Q6HR NEB MIA Last Admin: 09/05/18 14:31 Dose: 2.5 mg Alvimopan (Entereg) 12 mg PO BID MIA Stop: 09/10/18 21:01 Last Admin: 09/05/18 09:20 Dose: Not Given Amlodipine Besylate (Norvasc) 5 mg PO DAILY [facility] Last Admin: 09/05/18 09:20 Dose: Not Given Atorvastatin Calcium (Lipitor) 40 mg PO HS [facility] Last Admin: 09/04/18 20:23 Dose: 40 mg Benzocaine/Menthol (Chloraseptic Sore Throat Lozenge) 1 lozenge BUCCAL UNSCH PRN PRN Reason: SORE THROAT Dextrose (D50w Vial) 50 ml IV.PUSH UNSCH PRN PRN Reason: PER HYPOGLYCEMIA PROTOCOL Enalaprilat (Vasotec Inj) 1.25 mg IV.PUSH Q4H PRN PRN Reason: SBP > 160 mmHg Flumazenil (Romazecon Inj) 0.2 mg IV.PUSH Q1M PRN PRN Reason: OVERSEDATION Last Admin: 09/05/18 14:12 Dose: 0.2 mg Furosemide (Lasix Inj) 20 mg IV.PUSH Q12HR MIA Stop: 09/06/18 09:01 Last Admin: 09/05/18 09:13 Dose: 20 mg Glucagon (Glucagon Inj) 1 mg OTHER UNSCH PRN PRN Reason: for Hypoglycemia Protocol Potassium Chloride (Kcl 40 Meq Premix Inj) 40 meq in 100 mls @ 25 mls/hr IV.SIG UNSCH PRN PRN Reason: for K+ level < 3.0 mEq/L Potassium Chloride (Kcl 20 Meq Premix Inj) 20 meq in 100 mls @ 50 mls/hr IV.SIG UNSCH PRN PRN Reason: for K+ level 3.0-3.5 Potassium Chloride 20 meq/ (Lactated Ringer's) 1,010 mls @ 100 mls/hr IV.CONT .Q10H6M [facility] Last Infusion: 09/05/18 14:06 Dose: Infused Midazolam HCl (Versed Inj) 50 mg in 50 mls @ 2 mls/hr IV.CONT TITRATE PRN; Protocol PRN Reason: Per Protocol Insulin Human Regular (Novolin R Correctional Sugar Inj) 0 units SQ Q6HR MIA; Protocol Last Admin: 09/05/18 12:08 Dose: 10 units Ketorolac Tromethamine (Toradol Inj) 15 mg IV.PUSH Q6H PRN PRN Reason: BREAKTHROUGH PAIN Stop: 09/06/18 16:48 Levothyroxine Sodium (Synthroid) 125 mcg PO DAILY@0600 [facility] Last Admin: 09/05/18 06:41 Dose: Not Given Lorazepam (Ativan) 1 mg PO Q4H PRN PRN Reason: for CIWA 8-10 Lorazepam (Ativan) 2 mg PO Q2H PRN PRN Reason: for CIWA 11-14 Lorazepam (Ativan Inj) 2 mg IV.PUSH Q2H PRN PRN Reason: for CIWA 11-14 Lorazepam (Ativan Inj) 2 mg IV.PUSH Q1H PRN PRN Reason: for CIWA 15-20 Lorazepam (Ativan Inj) 1 mg IV.PUSH Q4H PRN PRN Reason: for CIWA 8-10 Last Admin: 09/05/18 12:45 Dose: 1 mg Lorazepam (Ativan Inj) 2 mg IV.PUSH Q15M PRN PRN Reason: for CIWA > 20 Metoprolol Succinate (Toprol Xl) 25 mg PO DAILY [facility] Last Admin: 09/05/18 09:20 Dose: Not Given Naloxone HCl (Narcan Inj) 0.4 mg IV.PUSH UNSCH PRN PRN Reason: Resp rate < 10 Ondansetron HCl (Zofran Inj) 4 mg IV.PUSH Q6H PRN PRN Reason: NAUSEA OR VOMITING Pantoprazole Sodium (Protonix Inj) 40 mg IV.PUSH DAILY [facility] Last Admin: 09/05/18 09:14 Dose: 40 mg Sodium Chloride (Ns Flush) 2 ml IV.FLUSH BID MIA Last Admin: 09/05/18 09:20 Dose: 2 ml Sodium Chloride (Ns Flush) 2 ml IV.FLUSH UNSCH PRN PRN Reason: FLUSH AFTER USING IV ACCESS Last Admin: 09/04/18 09:47 Dose: 2 ml Allergies Allergy/AdvReac Type Severity Reaction Status Date / Time No Known Allergies Allergy Verified 09/02/18 10:33 Home Medications Medication Instructions Recorded Confirmed Type amlodipine 5 mg PO DAILY 09/02/18 09/03/18 History atorvastatin 40 mg PO HS 09/02/18 09/03/18 History glimepiride 4 mg PO QAM 09/02/18 09/03/18 History levothyroxine 125 mcg PO DAILY 09/02/18 09/03/18 History metoprolol succinate 25 mg PO DAILY 09/02/18 09/03/18 History polyethylene glycol 3350 [Miralax] 17 g PO DAILY PRN 09/02/18 09/03/18 History Physical Exam Vital signs: Vital Signs 09/04/18 20:00 09/05/18 00:27 09/05/18 03:00 Temperature 36.4 C L 36.6 C 36.9 C Pulse Rate 89 80 111 H Respiratory Rate 18 20 18 Blood Pressure 152/88 H 161/93 H 145/92 H Pulse Oximetry 94 L 95 93 L 09/05/18 08:00 09/05/18 11:40 09/05/18 11:45 Temperature 36.2 C L Pulse Rate 113 H 112 H 108 H Respiratory Rate 17 18 17 Blood Pressure 120/71 194/114 H 151/84 H Pulse Oximetry 94 L 92 L 09/05/18 12:00 Temperature 36.9 C Pulse Rate 120 H Respiratory Rate 17 Blood Pressure 163/97 H Pulse Oximetry 95 Intake & Output 09/04/18 09/05/18 09/05/18 18:59 06:59 18:59 Intake Total 2860 / 2860 1010 / 1010 1010 / 1010 Output Total 1480 / 1480 590 / 590 30 / 30 Balance 1380 / 1380 420 / 420 980 / 980 Weight 96.8 kg Intake: IV 2260 / 2260 1010 / 1010 1010 / 1010 KCl Inj 20 MEQ In LR 1000 mL 1010 / 1010 1010 / 1010 1010 / 1010 Inj 1,000 ML @ 100 mls/hr IV. CONT .Q10H6M MIA Rx#:[id number] Ancef 2 GM Premix Inj 2 gm In 50 / 50 50 ml @ 100 mls/hr IV.SIG Q8H MIA Rx#:[id number] Flagyl 500 MG Inj 100 ML @ 100 200 / 200 mls/hr IV.SIG Q8H MIA Rx#: [id number] Oral 600 / 600 Output: Urine 480 / 480 500 / 500 Urine Amount (Catheter) 1000 / 1000 Indwelling Urethral Catheter 1000 / 1000 Wound Drainage 90 30 / 30 Right Abdomen ALEKSANDER Drain 30 30 Other: Date of Last Bowel Movement 09/02/18 Narrative: GENERAL: Middle-age male, lying in bed, somnolent, near obtunded. Arouses to deep sternal rub. HEENT: Normocephalic. Atraumatic. Pupils 4 mm, equal, round, reactive, conjugate. Mucous membranes are moist NECK: Trachea is midline. There is no JVD. CHEST: Equal chest rise. Some upper airway obstruction. Nasal cannula oxygen. CARDIOVASCULAR: Normal rate, regular rhythm. Hypotensive with systolics in the 150s. ABDOMEN: Soft, nontender, nondistended. No guarding. Abdominal incision site clean dry and intact. MUSCULOSKELETAL: Pulses 2+. No peripheral edema. NEUROLOGICAL: RASS -4. Arouses to deep sternal rub. Did weakly give me bilateral thumbs up and follows commands in the upper extremities, but only with deep sternal rub. Otherwise is unarousable. - Urinary Catheter Management Indwelling Urethral Catheter Cath placed during this visit: yes Reason for continuing: Hourly intake/output Insertion date: 09/03/18 Insertion time: 13:46 Assessment and Plan - Assessment and Plan Plan: Assessment: 63-year-old male postop day 2 status post colectomy who now has acute basilar CVA. His outcome is likely to be poor regardless. We will proceed with emergent endovascular thrombectomy as this is his only hope for any meaningful recovery at all. I have discussed the his likely poor prognosis. We will consult palliative care. Active problems: Acute basilar CVA Acute bilateral cerebellar stroke Postop day 2 status post colectomy Acute encephalopathy Plan: Admit ICU Hyperosmolar therapy Neurosurgery consultation: May need surgical decompression Emergent embolectomy Lipids A1c 2D echo Palliative consultation Frequent neurochecks Goal systolic blood pressure 160-180 Avoid anticoagulation given high risk for hemorrhagic conversion Repeat CT head in the morning Phenylephrine for goal systolics Intubate patient for hypoxia Vent bundle Head of bed elevated No weaning of mechanical ventilation until mental status improves This patient remains critically ill with one or more organ systems which are or may become a threat to life. I have spent in excess of 102 minutes discontinuously in the care and management of this patient. This time is exclusive of procedures, and includes, but is not limited to, evaluation of the patient, review of the medical record, discussions with family, consultants, nursing staff, or respiratory therapy, and documentation in the medical record.
--- NOTE | 2018-09-05 15:14 | P.PCN ---
Date of procedure: 09/05/18 Pre-op diagnosis: acute obtundation Procedure: Endotracheal Intubation Diagnosis: Acute hypoxic hypercarbic respiratory failure Indications: Acute hypoxic hypercarbic respiratory failure Consent: Verbal consent was obtained from the Anesthesia: Versed 10 mg IV, succinylcholine 140 mg IV Description of the Procedure: The patient was positioned in the sniffing position. Pre-oxygenation was performed using a [id number]. Anesthesia was induced via rapid sequence. A Figueroa #2 was used for laryngoscopy and a Grade I view was obtained. A 8.5 cuffed endotracheal tube was inserted atraumatically through the vocal cords. Confirmation of correct endotracheal tube placement was made by equal and bilateral breath sounds and colorimetric CO2 detection. The endotracheal tube was secured at 23 cm at the teeth. There were no immediate complications noted. The patient remained hemodynamically stable throughout the procedure. A chest x-ray has been ordered. I personally performed the procedure.
[2018-09-05] MEDS: Midazolam 50 MG/50 ML Inj 50 MG/50 ML BAG IV.CONT PRN ×3 (15:17→22:47)
[2018-09-05] MEDS ORDERED: Gadobutrol PF 10 MMOL/10 ML Vial (for RAD) IV.SIG ONE (17:57)
--- NOTE | 2018-09-05 17:59 | MR ---
EXAM DATE: 09/05/2018 4:04 PM EDT AGE/SEX: 63 years / Male INDICATIONS: CVA. Altered mental status. CLINICAL DATA: This is the patient's initial encounter. Patient reports that signs and symptoms have been present for 1 day and indicates a pain score of 0/10. MEDICAL/SURGICAL HISTORY: Cardiovascular disease. Diabetes mellitus type II. Hypertension. CA BG. COMPARISON: No prior exams available for comparison. TECHNIQUE: Multiplanar, multisequence examination of the brain was performed without contrast. FINDINGS: Multiple areas of restricted diffusion indicating acute infarcts. Large acute infarct seen in the cer ebellar hemispheres bilaterally measuring 3.9 cm on the right and 3.0 cm on the left. 1 cm acute infa rct in the left side of the ina. Multiple adjacent medial left occipital cortical acute infarcts wit h the largest measuring 2 cm. Correlating areas of abnormality are also seen on the ADC map images. C orrelating signal abnormality on the T2-weighted images. No evidence of mass effect or midline shift. Scattered chronic small vessel ischemic change in the white matter. Ventricles within normal limits in size. No evidence of acute intracranial hemorrhage. No intracranial mass lesion identified. CONCLUSION: Large bilateral acute cerebellar infarcts. Left-sided pontine acute infarct. Left-sided occipital lob e infarcts. Findings indicate multiple bilateral posterior distribution infarcts. No evidence of mass effect or midline shift. Electronically signed by: Bran Dubon MD 09/05/2018 5:58 PM EDT
--- NOTE | 2018-09-05 18:01 | MR ---
EXAM DATE: 09/05/2018 4:04 PM EDT AGE/SEX: 63 years / Male INDICATIONS: CVA. Altered mental status. CLINICAL DATA: This is the patient's initial encounter. Patient reports that signs and symptoms have been present for 1 day and indicates a pain score of 0/10. MEDICAL/SURGICAL HISTORY: Hypertension. Cardiovascular disease. CABG. COMPARISON: C, CTA PULMONARY W CONTRAST W 3D, 09/05/2018. . TECHNIQUE: 3D [id number] MRA was performed. Source images, multiplanar STS MIP, and 3D volum e MIP reconstructions were reviewed. FINDINGS: Anterior Circulation: Intracranial Carotid Arteries: Patent. WILLY: There is no evidence for aneurysm, vessel truncation or stenosis, and no evidence for vascular m alformation. MCA: There is no evidence for aneurysm, vessel truncation or stenosis, and no evidence for vascular m alformation. Posterior Circulation: Distal Vertebral Arteries: The vertebral arteries are slightly asymmetrical but patent. Basilar Artery: No flow is demonstrated in the basilar artery. TISSUE COORDINATOR and Cerebellar Branches: origin of the right TISSUE COORDINATOR. No flow is demonstrated in the left TISSUE COORDINATOR. CONCLUSION: 1. Findings consistent with basilar artery thrombosis. Right TISSUE COORDINATOR territory is spared due to or igin. Findings were personally discussed at length with Dr. Doan. Electronically signed by: Jc Sebastian MD 09/05/2018 6:00 PM EDT
--- NOTE | 2018-09-05 18:08 | MB ---
cc: Herrera Fuentes DO DATE: 09/05/2018 REASON FOR CONSULTATION: Abnormal EKG, concern for neurological compromise. HISTORY OF PRESENT ILLNESS: Abnormal EKG, excessive somnolence. HISTORY OF PRESENT ILLNESS: Rashard Duong is a pleasant 63-year-old male, whom I see in the office and apparently had a colonoscopy and found to have a near obstructing lesion of his sigmoid colon. He underwent an elective left colectomy with low anterior colorectal anastomosis on 09/03/2018. He was on a [employer] W[employer] pump as of yesterday, but has not received any pain meds since yesterday. Apparently, this morning, he was somewhat disoriented and mean to his , which she thought was weird and he received a small amount of Ativan this morning with the last one being at 7:30. He was found to be further obtunded later in the morning and an EKG was done, which showed some nonspecific ST-T wave changes. I was asked by Dr. Emery to evaluate the patient due to his current situation as well as EKG changes. In review of the EKG, it is similar to previous ones that I have in the office. In seeing the patient, he is excessively somnolent and does open his eyes to a sternal rub, but unable to answer questions. He continues to have a snoring like affect while his eyes are open. PAST MEDICAL HISTORY: 1. Coronary artery disease. 2. Asthma. 3. Diabetes. 4. Hyperlipidemia. 5. Hypertension. 6. History of AVNRT. 7. Sleep apnea. PAST SURGICAL HISTORY: 1. Left colectomy with low anterior colorectal anastomosis (09/03/2018). 2. Cardiac catheterization (11/09/2017). Left main normal. LAD diffuse 70% disease with 100% occlusion in the mid portion. Left circumflex overall small. First obtuse marginal 100% occluded. Second obtuse marginal diffuse 70% disease and an overall small vessel. RCA: Normal-sized with a 90% occlusion in the proximal and distal 80% in the PDA. SMITH to LAD, patent. SVG to OM patent. SVG to PLB patent. SVG to unknown vessel, possible diagonal occluded. 3. CABG x4 as above. 4. Left carpal tunnel release (08/2017). ALLERGIES: NO KNOWN DRUG ALLERGIES. MEDICATIONS: 1. Synthroid 125 mcg daily. 2. Glimepiride 4 mg daily. 3. Lipitor 40 mg every night. 4. Toprol-XL 25 mg daily. 5. Norvasc 5 mg daily. FAMILY HISTORY: Denies premature coronary artery disease or sudden cardiac within the family. SOCIAL HISTORY: The patient smokes cigars daily. Occasionally drinks alcohol. Denies drug abuse. REVIEW OF SYSTEMS: Unable to obtain due to the patient's current state. PHYSICAL EXAMINATION: VITAL SIGNS: Temperature 97.1, heart rate 112, blood pressure 154/84, respirations 17, pulse oximetry 92% on 2 liters. GENERAL: The patient is excessively somnolent, but opens his eyes to a sternal rub. During this, he continues to snore and is unable to answer questions. HEENT: Face appears symmetrical in nature. Mucous membranes moist. NECK: Supple. No JVD at 45 degrees. No carotid bruits heard bilaterally. Carotid upstroke is brisk in nature. HEART: Regular rate and rhythm. Positive first and second heart sounds with no noted murmurs, gallops or rubs. LUNGS: Clear to auscultation bilaterally. No wheezes, rales or rhonchi. ABDOMEN: Soft, nontender, nondistended. No organomegaly noted. EXTREMITIES: Show no clubbing, cyanosis or edema. Femoral and distal pulses are intact bilaterally. NEUROLOGIC: The patient is excessively somnolent. Opens his eyes to sternal rub, but continues to have a snoring affect during this and does not answer questions. SKIN: Warm, dry and intact. LABORATORY DATA: Hemoglobin 13.3, hematocrit 38.7, platelets 219. Potassium 4.0, BUN 12, creatinine 0.90. Electrocardiogram (09/05/2018 at 11:51): Sinus rhythm, nonspecific ST-T wave changes. No significant change from EKG in the office. IMPRESSION: 1. Excessive somnolence/delirium. 2. Colon cancer, status post left colectomy and anastomosis, postop day #2. 3. History of supraventricular tachycardia. 4. Coronary artery disease with a history of coronary artery bypass graft x4. 5. Abnormal EKG, not significantly different from EKG in the office. RECOMMENDATIONS: 1. Mr. Duong had an EKG done and does not appear different from that in the office, no further workup at this time. 2. Overall, concern is for his neurological status. I discussed this with Dr. Emery and he will send him for a CT of the head due to the change in his mental status. 3. He is mildly hypoxic on his ABG, and he will undergo a CTA of the chest to rule out PE as he is postop at this time. 4. Further recommendations will be made based on the hospital course. Thank you for allowing me to see Rashard Duong. If there are any questions, please do not hesitate to call. Herrera Fuentes, DO VGP/ct , 04:53 PM , 05:06 PM
--- NOTE | 2018-09-05 18:17 | MR ---
EXAM DATE: 09/05/2018 4:03 PM EDT AGE/SEX: 63 years / Male INDICATIONS: . CVA. Altered mental status. CLINICAL DATA: This is the patient's initial encounter. Patient reports that signs and symptoms have been present for 1 day and indicates a pain score of 0/10. MEDICAL/SURGICAL HISTORY: Cardiovascular disease. Diabetes mellitus type II. Hypertension. CA BG. COMPARISON: No prior exams available for comparison. TECHNIQUE: 11 ml Gadavist (gadobutrol) contrast infused MRA (single exam dose) of the extracranial circulation was performed using a neurovascular coil. Postprocessing was performed, including rotati ng sub-volume maximum intensity projections of each carotid artery, rotating full-volume maximum inte nsity projections of both carotid arteries, sagittal and coronal sliding thin-slab reformations of ea ch carotid artery, and left oblique sliding thin-slab reformation through the aortic arch to include the origin of the arch branch vessels. FINDINGS: Aortic Arch : There is a three-vessel origin of the great vessels from the aorta. No evidence of o stial narrowing. Right Carotid : The common carotid artery is intact. The carotid bulb has a normal configuration wi thout ulceration or narrowing. The internal carotid artery lumen is smooth without stenosis. The ex ternal carotid artery is intact. Left Carotid : The common carotid artery is intact. The carotid bulb has a normal configuration wit hout ulceration or narrowing. The internal carotid artery lumen is smooth without stenosis. The ext ernal carotid artery is intact. Vertebrals : Dominant left vertebral artery. There is no flow demonstrated beyond the distal vertebr al arteries at the vertebrobasilar junction. The very distal basilar artery is demonstrated. CONCLUSION: 1. 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 The left vertebral artery is dominant . Standard 3 vessel arch anatomy. 2. No significant carotid flow-limiting stenosis. Percent stenosis is calculated using the diameter of the stenotic region over the diameter of the nor mal distal internal carotid artery Electronically signed by: Jc Sebastian MD 09/05/2018 6:16 EDT
[2018-09-05] MEDS: Phenylephrine Inj 40 MG in Dextrose 5% in Water Inj 496 ML IV.CONT PRN ×2 (18:38)
[2018-09-05] MEDS ORDERED: Normosol-R pH 7.4 Inj 2,000 ML IV.CONT ONE (19:31)
[2018-09-05] MEDS ORDERED: Phenylephrine/NS 1000 MCG/10ML Syringe IV.PUSH ONE (19:31)
--- NOTE | 2018-09-05 19:33 | P.EN ---
Neurosurgery consulted for: 63 yo with PMH colorectal CA s/p colectomy with AMS today with MRI imaging significant for basilar artery thrombus extending into the Left [employer] with associated diffusion restriction involving the left ina, bilateral cerebellum, and left occipital lobe. Per primary service, prior to intubation was lethargic but following simple commands. Patient to be taken emergently for possible thrombectomy. Recommendations as follows: -q1 hr neuro checks -repeat non contrast head CT at 4 am to evaluate for evolution of posterior fossa edema -aggressive hypernatremia goal 150-155, q4 hr Na's Full consult note to follow
--- NOTE | 2018-09-05 20:09 | MG ---
cc: Jennifer Gallegos MD EEG NUMBER: [id number], room 1307. Intubated. Photic done. Paralytic used, Versed 10 mg push or intubation. CLINICAL HISTORY: A 63-year-old man found confused since colon surgery, possible alcohol withdrawal, agitated. Ativan given at 12:45, trended, Versed vecuronium. DESCRIPTION OF RECORD: The patient has overall slowing of the background with a lot of artifactual also in the EKG portion at times, but overall slowing is noted. As stated the patient was also sedated, so there is some theta delta slowing seen bilaterally. Versed drip started. Photic stimulation without any significant driving response. IMPRESSION: Mild to moderate slowing seen, possibly with encephalopathic process versus medicine effect. No epileptiform features. Jennifer Gallegos MD DF/ct , 07:18 PM , 07:22 PM
[2018-09-05] MEDS ORDERED: Heparin 10,000 UNITS/10 ML Vial (for IV use) ONE (20:16)
--- NOTE | 2018-09-05 22:27 | P.RAD ---
Post Procedure Progress Note - Pre Procedure Diagnosis (1) Basilar artery embolism - Post Procedure Diagnosis (1) Basilar artery embolism - Procedure Information Procedure Date: 09/05/18 Supervising Radiologist: Liam Cabrera MD Anesthesia: General - Plan of Activity Patient to Unit: Critical Care Patient Condition: Critical See PACS Report for procedural detail/treatment. Vascular - Arterial Procedure Cerebral Procedure: Embolectomy (unsucessful embolectomy of basilar artery)
[2018-09-05] MEDS ORDERED: fentaNYL Citrate Inj 100 MCG/2 ML Ampul ONE (22:54)
[2018-09-05] MEDS: Sodium Chloride 23.4% Inj 188 MEQ in Sod Chloride 0.9% Inj 1,000 ML IV.CONT SCH (22:55)
[2018-09-06 00:30] VITALS: O2SAT 100
[2018-09-06] MEDS: Insulin NovoLIN Regular Correctional Sugar Inj SQ SCH ×5 (00:41→18:00)
[2018-09-06] MEDS: Phenylephrine Inj 40 MG in Dextrose 5% in Water Inj 496 ML IV.CONT PRN ×10 (03:12→21:08)
[2018-09-06 05:36] LABS: Hematocrit 33.9 % (39.0-51.0); Hemoglobin 11.7 gm/dL (13.0-17.0); Mean Corpuscular HGB Conc 34.4 % (32.0-36.0); Mean Corpuscular Hemoglobin 31.3 pg (27.0-34.0); Mean Platelet Volume 7.2 fL (7.0-11.0); Platelet Count 242 th/mm3 (150-450); Red Blood Count 3.72 mil/mm3 (4.50-5.90); Red Cell Distribution Width 13.7 % (11.6-17.2); White Blood Count 18.4 th/mm3 (4.0-11.0)
[2018-09-06] MEDS: Midazolam 50 MG/50 ML Inj 50 MG/50 ML BAG IV.CONT PRN (05:39)
--- NOTE | 2018-09-06 05:52 | CT ---
EXAM DATE: 09/06/2018 4:25 AM EDT AGE/SEX: 63 years / Male INDICATIONS: Follow up stroke. CLINICAL DATA: This is the patient's subsequent encounter. Patient reports that signs and symptoms h ave been present for 1 day and indicates a pain score of Nonresponsive. MEDICAL/SURGICAL HISTORY: Cardiovascular disease. Hypertension. Diabetes mellitus type II. CABG. Cholecystectomy. RADIATION DOSE: 66.34 CTDI (mGy) COMPARISON: [facility] [place], MR HEAD W/O CONTRAST, 09/05/2018. . TECHNIQUE: CT of the head without contrast. Using automated exposure control and adjustment of the mA and/or kV according to patient size, radiation dose was kept as low as reasonably achievable to ob tain optimal diagnostic quality images. DICOM format image data is available electronically for revi ew and comparison. FINDINGS: There are bilateral cerebellar hemispheric infarcts as well as small infarct in the medial occipital lobe on the left and left ina. No new hemorrhage. Partial effacement of the fourth ventricle fairly stable. Remote lacunar infarct r ight basal ganglia. No midline shift. Patient intubated. CONCLUSION: 1. Evolving infarcts in both cerebellar hemispheres with mild mass effect. No hemorrhage. Small infa rcts medial left occipital lobe and left ina. . Electronically signed by: Abhishek Garvin MD 09/06/2018 5:51 AM EDT
[2018-09-06 06:08] LABS: Anion Gap 9 meq/L (5-15); Blood Urea Nitrogen 12 mg/dL (7-18); Calcium 8.4 mg/dL (8.5-10.1); Carbon Dioxide 26.3 meq/L (21.0-32.0); Chloride 103 meq/L (98-107); Glomerular Filtration Rate Greater Than 89 mL/min (>89); Glucose,Random 231 mg/dL (74-106); Potassium 3.5 meq/L (3.5-5.1); Sodium 138 meq/L (136-145)
[2018-09-06 06:11] LABS: Creatine Kinase 405 U/L (39-308)
[2018-09-06 06:28] LABS: CKMB Percent 0.8 % (0.0-4.0); Creatine Kinase MB 3.2 ng/mL (0.5-3.6)
--- NOTE | 2018-09-06 07:15 | P.CONNS ---
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 Patient was admitted neurologically intact on 09/03 for elective colectomy for colon CA. S/p surgery patient's reports patient c/o diplopia and slurred speech. Symptoms believed 2/2 being over narcotized therefore medication reduced. On Friday reports "droopiness of the face" followed by confused/altered state into friday. Patient was evaluated and intubated on friday followed by CT and MR imaging that demonstrated a thrombus extending from the basilar to the left [employer] and associated infarcts in the left ina, bilateral cerebellar hemispheres, and left occipital lobe. Patient was taken emergently for unsuccessful basilar thrombectomy/clot retrieval. [facility] - History History Provided By: Patient, Family Member, Medical Record - Medical History Medical History: Medical History (Last Reviewed 09/06/18 @ 00:27 by Robby Rowe MD) Abdominal pain Arthritis Asthma CAD (coronary artery disease) Diabetes H/O acute myocardial infarction High cholesterol History of left heart catheterization Hypertension Hypothyroid SVT (supraventricular tachycardia) Sleep apnea - Surgical History Surgical History: Surgical History (Last Reviewed 09/06/18 @ 00:27 by Robby Rowe MD) S/P CABG x 4 - Family History Family History: Family History (Last Updated 09/05/18 @ 11:38 by Sylvester Emery MD) Other Heart disease - Tobacco History Second Hand Smoke Exposure: No Tobacco Use In Past 30 Days: Yes Smoking Status: Current every day smoker Tobacco Type: Cigars - Alcohol History How Often Do You Have a Drink Containing Alcohol: 2 to 3 times a week - Substance Use History Substance History: No History of Abuse - Immunization History Tetanus Immunization: >5 Years Hx Influenza Vaccine This Season: No Medications and Allergies Active Medications: Active Medications Hydrocodone Bitart/Acetaminophen ([place] 5/325) 1 tab PO Q4H PRN PRN Reason: PAIN SCALE 1 TO 4 Hydrocodone Bitart/Acetaminophen ([place]wick 5/325) 2 tab PO Q4H PRN PRN Reason: PAIN SCALE 5 TO 10 Albuterol (Albuterol Neb (Mia)) 2.5 mg NEB Q6HR NEB FOR[facility]LY [facility], 1928–1983 Last Admin: 09/06/18 03:44 Dose: Not Given Alvimopan (Entereg) 12 mg PO BID [facility], [facility]1983 Stop: 09/10/18 21:01 Last Admin: 09/06/18 00:31 Dose: Not Given Amlodipine Besylate (Norvasc) 5 mg PO DAILY [facility], [facility] Last Admin: 09/05/18 09:20 Dose: Not Given Atorvastatin Calcium (Lipitor) 40 mg PO HS [facility], [facility]1983 Last Admin: 09/06/18 00:31 Dose: Not Given Benzocaine/Menthol (Chloraseptic Sore Throat Lozenge) 1 lozenge BUCCAL UNSCH PRN PRN Reason: SORE THROAT Dextrose (D50w Vial) 50 ml IV.PUSH UNSCH PRN PRN Reason: PER HYPOGLYCEMIA PROTOCOL Enalaprilat (Vasotec Inj) 1.25 mg IV.PUSH Q4H PRN PRN Reason: SBP > 160 mmHg Flumazenil (Romazecon Inj) 0.2 mg IV.PUSH Q1M PRN PRN Reason: OVERSEDATION Last Admin: 09/05/18 14:12 Dose: 0.2 mg Furosemide (Lasix Inj) 20 mg IV.PUSH Q12HR [facility], [facility] Stop: 09/06/18 09:01 Last Admin: 09/06/18 00:31 Dose: Not Given Glucagon (Glucagon Inj) 1 mg OTHER UNSCH PRN PRN Reason: for Hypoglycemia Protocol Potassium Chloride (Kcl 40 Meq Premix Inj) 40 meq in 100 mls @ 25 mls/hr IV.SIG UNSCH PRN PRN Reason: for K+ level < 3.0 mEq/L Potassium Chloride (Kcl 20 Meq Premix Inj) 20 meq in 100 mls @ 50 mls/hr IV.SIG UNSCH PRN PRN Reason: for K+ level 3.0-3.5 Potassium Chloride 20 meq/ (Lactated Ringer's) 1,010 mls @ 100 mls/hr IV.CONT .Q10H6M [facility], [facility] Last Infusion: 09/05/18 22:55 Dose: 0 mls/hr Midazolam HCl (Versed Inj) 50 mg in 50 mls @ 2 mls/hr IV.CONT TITRATE PRN; Protocol PRN Reason: Per Protocol Last Admin: 09/06/18 05:39 Dose: 5 mg/hr, 5 mls/hr Phenylephrine HCl 40 mg/ (Dextrose) 500 mls @ 30 mls/hr IV.CONT TITRATE PRN; Protocol PRN Reason: BLOOD PRESSURE MANAGEMENT Last Titration: 09/06/18 04:30 Dose: 150 mcg/min, 112.5 mls/hr Sodium Chloride (Sodium Chloride 3% Inj) 500 mls @ 20 mls/hr IV.SIG ONCE ONE Stop: 09/06/18 23:19 Last Admin: 09/06/18 00:32 Dose: Not Given Sodium Chloride 188 meq/ (Sodium Chloride) 1,047 mls @ 42 mls/hr IV.CONT .Q24H [facility], [facility] Last Admin: 09/05/18 22:55 Dose: 42 mls/hr Insulin Human Regular (Novolin R Correctional Sugar Inj) 0 units SQ Q6HR [facility], [facility]; Protocol Last Admin: 09/06/18 05:43 Dose: 10 units Ketorolac Tromethamine (Toradol Inj) 15 mg IV.PUSH Q6H PRN PRN Reason: BREAKTHROUGH PAIN Stop: 09/06/18 16:48 Levothyroxine Sodium (Synthroid) 125 mcg PO DAILY@0600 [facility], [facility] Last Admin: 09/05/18 06:41 Dose: Not Given Lorazepam (Ativan) 1 mg PO Q4H PRN PRN Reason: for CIWA 8-10 Lorazepam (Ativan) 2 mg PO Q2H PRN PRN Reason: for CIWA 11-14 Lorazepam (Ativan Inj) 2 mg IV.PUSH Q2H PRN PRN Reason: for CIWA 11-14 Lorazepam (Ativan Inj) 2 mg IV.PUSH Q1H PRN PRN Reason: for CIWA 15-20 Lorazepam (Ativan Inj) 1 mg IV.PUSH Q4H PRN PRN Reason: for CIWA 8-10 Last Admin: 09/05/18 12:45 Dose: 1 mg Lorazepam (Ativan Inj) 2 mg IV.PUSH Q15M PRN PRN Reason: for CIWA > 20 Metoprolol Succinate (Toprol Xl) 25 mg PO DAILY [facility], [facility] Last Admin: 09/05/18 09:20 Dose: Not Given Naloxone HCl (Narcan Inj) 0.4 mg IV.PUSH UNSCH PRN PRN Reason: Resp rate < 10 Ondansetron HCl (Zofran Inj) 4 mg IV.PUSH Q6H PRN PRN Reason: NAUSEA OR VOMITING Pantoprazole Sodium (Protonix Inj) 40 mg IV.PUSH DAILY [facility], [facility] Last Admin: 09/05/18 09:14 Dose: 40 mg Sodium Chloride (Ns Flush) 2 ml IV.FLUSH BID [facility], [facility] Last Admin: 09/05/18 22:07 Dose: Not Given Sodium Chloride (Ns Flush) 2 ml IV.FLUSH UNSCH PRN PRN Reason: FLUSH AFTER USING IV ACCESS Last Admin: 09/04/18 09:47 Dose: 2 ml Allergies Allergy/AdvReac Type Severity Reaction Status Date / Time No Known Allergies Allergy Verified 09/02/18 10:33 Home Medications Medication Instructions Recorded Confirmed Type amlodipine 5 mg PO DAILY 09/02/18 09/03/18 History atorvastatin 40 mg PO HS 09/02/18 09/03/18 History glimepiride 4 mg PO QAM 09/02/18 09/03/18 History levothyroxine 125 mcg PO DAILY 09/02/18 09/03/18 History metoprolol succinate 25 mg PO DAILY 09/02/18 09/03/18 History polyethylene glycol 3350 [Miralax] 17 g PO DAILY PRN 09/02/18 09/03/18 History Exam Vital signs: Vital Signs 09/05/18 08:00 09/05/18 11:40 09/05/18 11:45 Temperature 97.1 F L Pulse Rate 113 H 112 H 108 H Respiratory Rate 17 18 17 Blood Pressure 120/71 194/114 H 151/84 H Pulse Oximetry 94 L 92 L 09/05/18 12:00 09/05/18 14:00 09/05/18 15:49 Temperature 98.5 F 97.9 F Pulse Rate 120 H 124 H Respiratory Rate 17 26 H 14 Blood Pressure 163/97 H 137/95 H Pulse Oximetry 95 96 98 09/05/18 16:00 09/05/18 16:05 09/05/18 19:10 Temperature 98.6 F Pulse Rate 107 H Respiratory Rate 20 Blood Pressure 138/88 Pulse Oximetry 100 98 100 09/05/18 22:54 09/06/18 00:00 09/06/18 03:59 Temperature 98.6 F Pulse Rate 60 67 Respiratory Rate 14 16 16 Blood Pressure 152/84 H Pulse Oximetry 99 100 100 09/06/18 04:00 09/06/18 04:45 Temperature 99 F Pulse Rate 60 Respiratory Rate 16 Blood Pressure 152/78 H Pulse Oximetry 100 100 Intake & Output 09/05/18 09/06/18 09/06/18 18:59 06:59 18:59 Intake Total 1060 / 1060 600 / 600 Output Total 65 / 65 2295 / 2295 Balance 995 / 995 -1695 / -1695 Weight 99 kg Intake: IV 1060 / 1060 600 / 600 Versed Inj 50 mg In 50 ml @ 2 50 / 50 100 / 100 MG/HR 2 mls/hr IV.CONT TITRATE PRN Rx#:[id number] Neosynephrine Inj 40 MG In D5W 500 / 500 Inj 496 ML @ 40 MCG/MIN 30 mls/ hr IV.CONT TITRATE PRN Rx#: [id number] KCl Inj 20 MEQ In LR 1000 mL 1010 / 1010 Inj 1,000 ML @ 100 mls/hr IV. CONT .Q10H6M MIA Rx#:[id number] Oral 0 / 0 Output: Urine 50 / 50 Urine Amount (Catheter) 2175 / 2175 Indwelling Urethral Catheter 2175 / 2175 Wound Drainage 65 / 65 70 / 70 Right Abdomen ALEKSANDER Drain 65 / 65 70 / 70 Other: # Incontinent Voids 2 Date of Last Bowel Movement 09/02/18 # Bowel Movements 0 0 Narrative: E1 intubated PERRL gaze appears midline +corneals b/l weak gag and cough does not follow commands withdraws in the upper and lower extremities to stimulation Results - Laboratory Findings CBC and BMP: 09/06/18 05:15 09/06/18 05:15 Abnormal lab findings: Abnormal Labs 09/03/18 09/03/18 09/03/18 17:00 17:00 23:52 WBC 11.2 H RBC 4.39 L Hgb Hct Neut % (Auto) Lymph % (Auto) Knott % (Auto) 8.3 H Neut # (Auto) 7.8 H Knott # (Auto) Seg Neuts % (Manual) Monocytes % (Manual) Abs Neuts (Manual) O2 Saturation ABG pH ABG pCO2 Estimated GFR POC Glucose 339 H Random Glucose 323 H Osmolality Calcium 7.7 L Total Bilirubin AST Total Creatine Kinase CK-MB (CK-2) Albumin 09/04/18 09/04/18 09/04/18 03:35 03:35 06:01 WBC 14.4 H RBC Hgb Hct Neut % (Auto) 81.0 H Lymph % (Auto) 7.1 L Knott % (Auto) 11.8 H Neut # (Auto) 11.6 H Knott # (Auto) 1.7 H Seg Neuts % (Manual) Monocytes % (Manual) Abs Neuts (Manual) O2 Saturation ABG pH ABG pCO2 Estimated GFR POC Glucose 294 H Random Glucose 385 H Osmolality Calcium Total Bilirubin AST Total Creatine Kinase CK-MB (CK-2) Albumin 09/04/18 09/04/18 09/04/18 09:38 11:59 16:27 WBC RBC Hgb Hct Neut % (Auto) Lymph % (Auto) Knott % (Auto) Neut # (Auto) Knott # (Auto) Seg Neuts % (Manual) Monocytes % (Manual) Abs Neuts (Manual) O2 Saturation ABG pH ABG pCO2 Estimated GFR POC Glucose 298 H 320 H 284 H Random Glucose Osmolality Calcium Total Bilirubin AST Total Creatine Kinase CK-MB (CK-2) Albumin 09/04/18 09/05/18 09/05/18 17:22 00:19 04:30 WBC RBC Hgb Hct Neut % (Auto) Lymph % (Auto) Knott % (Auto) Neut # (Auto) Knott # (Auto) Seg Neuts % (Manual) Monocytes % (Manual) Abs Neuts (Manual) O2 Saturation ABG pH ABG pCO2 Estimated GFR POC Glucose 229 H 273 H 215 H Random Glucose Osmolality Calcium Total Bilirubin AST Total Creatine Kinase CK-MB (CK-2) Albumin 09/05/18 09/05/18 09/05/18 06:25 06:25 06:37 WBC RBC Hgb Hct Neut % (Auto) Lymph % (Auto) Knott % (Auto) Neut # (Auto) Knott # (Auto) Seg Neuts % (Manual) Monocytes % (Manual) Abs Neuts (Manual) O2 Saturation 88 L* ABG pH 7.46 H ABG pCO2 37 L Estimated GFR 85 L POC Glucose Random Glucose 218 H D Osmolality Calcium Total Bilirubin 1.1 H AST 57 H Total Creatine Kinase 777 H CK-MB (CK-2) 14.7 H Albumin 2.8 L 09/05/18 09/05/18 09/06/18 09:44 11:07 00:35 WBC 19.3 H RBC 4.22 L Hgb Hct 38.7 L Neut % (Auto) 77.5 H Lymph % (Auto) Knott % (Auto) 12.2 H Neut # (Auto) 14.9 H Knott # (Auto) 2.3 H Seg Neuts % (Manual) 78 H Monocytes % (Manual) 10 H Abs Neuts (Manual) 15.1 H O2 Saturation ABG pH ABG pCO2 Estimated GFR POC Glucose 238 H 230 H Random Glucose Osmolality Calcium Total Bilirubin AST Total Creatine Kinase CK-MB (CK-2) Albumin 09/06/18 09/06/18 09/06/18 05:15 05:15 05:37 WBC 18.4 H RBC 3.72 L Hgb 11.7 L Hct 33.9 L Neut % (Auto) Lymph % (Auto) Knott % (Auto) Neut # (Auto) Knott # (Auto) Seg Neuts % (Manual) Monocytes % (Manual) Abs Neuts (Manual) O2 Saturation ABG pH ABG pCO2 Estimated GFR POC Glucose 212 H Random Glucose 231 H Osmolality 296 H Calcium 8.4 L Total Bilirubin AST Total Creatine Kinase 405 H CK-MB (CK-2) Albumin Assessment and Plan - Plan 63 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 Due to basilar occlusion and inability to successfully recannulate, patient with significant associated neurological morbidity (likely need for fci tracheostomy and PEG tube) and high mortality. Family reports patient would not want aggressive surgical intervention if it would not provide significant improvement in quality of life. -Recommend goals of care discussion and consideration of palliative care
[2018-09-06] MEDS: Levothyroxine 125 MCG Tablet PO SCH (08:44)
[2018-09-06] MEDS: amLODIPine 5 MG Tablet PO SCH (09:52)
[2018-09-06] MEDS: Pantoprazole Inj 40 MG Vial IV.PUSH SCH (09:52)
--- NOTE | 2018-09-06 10:53 | P.PN ---
Subjective Interval history: events from yesterday reviewed pt in icu sedated on vent. Physical Exam Vital signs: Vital Signs 09/05/18 11:40 09/05/18 11:45 09/05/18 12:00 Temperature 98.5 F Pulse Rate 112 H 108 H 120 H Respiratory Rate 18 17 17 Blood Pressure 194/114 H 151/84 H 163/97 H Pulse Oximetry 92 L 95 09/05/18 14:00 09/05/18 15:49 09/05/18 16:00 Temperature 97.9 F 98.6 F Pulse Rate 124 H 107 H Respiratory Rate 26 H 14 20 Blood Pressure 137/95 H 138/88 Pulse Oximetry 96 98 100 09/05/18 16:05 09/05/18 19:10 09/05/18 22:54 Temperature Pulse Rate 60 Respiratory Rate 14 Blood Pressure Pulse Oximetry 98 100 99 09/06/18 00:00 09/06/18 03:59 09/06/18 04:00 Temperature 98.6 F 99 F Pulse Rate 67 60 Respiratory Rate 16 16 16 Blood Pressure 152/84 H 152/78 H Pulse Oximetry 100 100 100 09/06/18 04:45 09/06/18 08:00 Temperature Pulse Rate Respiratory Rate 14 Blood Pressure Pulse Oximetry 100 100 Intake & Output 09/05/18 09/06/18 09/06/18 18:59 06:59 18:59 Intake Total 1060 / 1060 600 / 600 500 / 500 Output Total 65 / 65 2695 / 2695 Balance 995 / 995 -2095 / -2095 500 / 500 Weight 99 kg Intake: IV 1060 / 1060 600 / 600 500 / 500 Versed Inj 50 mg In 50 ml @ 2 50 / 50 100 / 100 MG/HR 2 mls/hr IV.CONT TITRATE PRN Rx#:[id number] Neosynephrine Inj 40 MG In D5W 500 / 500 500 / 500 Inj 496 ML @ 40 MCG/MIN 30 mls/ hr IV.CONT TITRATE PRN Rx#: [id number] KCl Inj 20 MEQ In LR 1000 mL 1010 / 1010 Inj 1,000 ML @ 100 mls/hr IV. CONT .Q10H6M [facility] Rx#:[id number] Oral 0 / 0 Output: Urine 50 / 50 Urine Amount (Catheter) 2174 / 2174 Indwelling Urethral Catheter 2174 / 217 Gastric Drainage 400 / 400 Orogastric Tube 400 / 400 Wound Drainage 65 70 / 70 Right Abdomen ALEKSANDER Drain 70 / 70 Other: # Incontinent Voids 2 Date of Last Bowel Movement 09/02/18 # Bowel Movements 0 0 Narrative: intubated sedated pp pupils minimal w/d right foot to stimuli unable to follow commands. - Urinary Catheter Management Indwelling Urethral Catheter Cath placed during this visit: yes Reason for continuing: Hourly intake/output Insertion date: 09/03/18 Insertion time: 13:46 Results - Labs CBC & Chem 7: 09/06/18 05:15 09/06/18 05:15 Laboratory Results - last 24 hr 09/05/18 09/05/18 09/05/18 06:25 09:44 11:07 WBC RBC Hgb Hct MCV MCH MCHC RDW Plt Count MPV Sodium Potassium Chloride Carbon Dioxide Anion Gap BUN Creatinine Estimated GFR POC Glucose 238 H Random Glucose Osmolality Calcium Total Creatine Kinase 777 H CK-MB (CK-2) 14.7 H CK-MB (CK-2) % 1.9 B-Natriuretic Peptide 49 09/05/18 09/06/18 09/06/18 23:51 00:35 05:15 WBC 18.4 H RBC 3.72 L Hgb 11.7 L Hct 33.9 L MCV 91.0 MCH 31.3 MCHC 34.4 RDW 13.7 Plt Count 242 MPV 7.2 Sodium 139 Potassium Chloride Carbon Dioxide Anion Gap BUN Creatinine Estimated GFR POC Glucose 230 H Random Glucose Osmolality Calcium Total Creatine Kinase CK-MB (CK-2) CK-MB (CK-2) % B-Natriuretic Peptide 09/06/18 09/06/18 05:15 05:37 WBC RBC Hgb Hct MCV MCH MCHC RDW Plt Count MPV Sodium 138 Potassium 3.5 Chloride 103 Carbon Dioxide 26.3 Anion Gap 9 BUN 12 Creatinine 0.69 Estimated GFR Greater than 89 POC Glucose 212 H Random Glucose 231 H Osmolality 296 H Calcium 8.4 L Total Creatine Kinase 405 H CK-MB (CK-2) 3.2 CK-MB (CK-2) % 0.8 B-Natriuretic Peptide - Imaging Impressions Chest CTA 09/05/18 00:00 CONCLUSION: 1. No CT evidence for pulmonary artery embolism to the proximal segmental branches. More distal segmental and subsegmental branches are incompletely evaluated. 2. [id number] amount of free intraperitoneal air in the visualized portions of the upper abdomen. Etiology is unclear on this exam. 3. Mild bibasilar airspace consolidation, presumably atelectasis. 4. Diffusely dilated fluid-filled esophagus. 5. Prominent coronary artery calcifications with postsurgical features of prior CABG. 6. Prominent hepatic steatosis. Head CT 09/05/18 00:00 CONCLUSION: 1. Limited evaluation of the posterior fossa due to patient motion. However, there are large regions of bilateral hemispheric hypodensities concerning for possible cerebellar hemispheric infarcts. Chronicity is uncertain given lack of prior exams and suboptimal visualization. MRI examination may be performed as clinically appropriate. 2. Moderate diffuse cerebral atrophy that is slightly more than expected for stated age. . Head MRI 09/05/18 00:00 CONCLUSION: Large bilateral acute cerebellar infarcts. Left-sided pontine acute infarct. Left-sided occipital lobe infarcts. Findings indicate multiple bilateral posterior distribution infarcts. No evidence of mass effect or midline shift. Head MRA 09/05/18 00:00 CONCLUSION: 1. Findings consistent with basilar artery thrombosis. Right [employer] territory is spared due to origin. Findings were personally discussed at length with Dr. Doan. Neck MRA 09/05/18 00:00 CONCLUSION: 1. 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 The left vertebral artery is dominant. Standard 3 vessel arch anatomy. 2. No significant carotid flow-limiting stenosis. Percent stenosis is calculated using the diameter of the stenotic region over the diameter of the normal distal internal carotid artery Head CT 09/06/18 05:00 CONCLUSION: 1. Evolving infarcts in both cerebellar hemispheres with mild mass effect. No hemorrhage. Small infarcts medial left occipital lobe and left ina. . 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
--- NOTE | 2018-09-06 14:05 | P.PNCC ---
Subjective Subjective Remarks/Hospital Course: Hospital Course: This is a 63-year-old male who is postop day 2 status post colectomy for colon cancer. Postop day 1 he was quite agitated and was started on a Airam protocol. He continues to be agitated and then became quite altered and then obtunded. Emergent CT head demonstrates questionable hypodensities in the posterior fossa. He arrives to the ICU for higher level of care. I evaluated the patient on immediate arrival to the ICU. He was quite obtunded and altered only responsive to sternal rub. I discussed his care with the hospitalist attending. I also discussed his care with his who is concerned about his acute change in mentation. We proceeded with emergent intubation. 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 I discussed the case extensively with the interventional neuroradiology team as well as neurosurgery, neurology, cardiology, and his primary surgery team. Given subacute nature of the stroke and that it may be greater than 24 hours out, we consented the for the high risk of hemorrhagic conversion with intervention, but then proceeded with endovascular emergent intervention. No additional information is available the patient due to his somnolence. Review of systems is unobtainable. Subjective: 09/06: unable to retrieve basilar clot. prognosis now grave. discussed with IR and nsgy: best served without any further aggressive care, as best outcome now would likely be persistent vegetative state. would like to make the patient DNR. Objective Vital Signs / I&O: Vital Signs 09/05/18 14:00 09/05/18 15:49 09/05/18 16:00 Temperature 36.6 C 37.0 C Pulse Rate 124 H 107 H Respiratory Rate 26 H 14 20 Blood Pressure 137/95 H 138/88 Pulse Oximetry 96 98 100 09/05/18 16:05 09/05/18 19:10 09/05/18 22:54 Temperature Pulse Rate 60 Respiratory Rate 14 Blood Pressure Pulse Oximetry 98 100 99 09/06/18 00:00 09/06/18 03:59 09/06/18 04:00 Temperature 37.0 C 37.2 C Pulse Rate 67 60 Respiratory Rate 16 16 16 Blood Pressure 152/84 H 152/78 H Pulse Oximetry 100 100 100 09/06/18 04:45 09/06/18 08:00 09/06/18 12:21 Temperature Pulse Rate Respiratory Rate 14 14 Blood Pressure Pulse Oximetry 100 100 100 Intake & Output 09/05/18 09/06/18 09/06/18 18:59 06:59 18:59 Intake Total 1060 / 1060 600 / 600 1000 / 1000 Output Total 65 / 65 2695 / 2695 Balance 995 / 995 -2095 / -2095 1000 / 1000 Weight 99 kg Intake: IV 1060 / 1060 600 / 600 1000 / 1000 Versed Inj 50 mg In 50 ml @ 2 50 / 50 100 / 100 MG/HR 2 mls/hr IV.CONT TITRATE PRN Rx#:[id number] Neosynephrine Inj 40 MG In D5W 500 / 500 1000 / 1000 Inj 496 ML @ 40 MCG/MIN 30 mls/ hr IV.CONT TITRATE PRN Rx#: [id number] KCl Inj 20 MEQ In LR 1000 mL 1010 / 1010 Inj 1,000 ML @ 100 mls/hr IV. CONT .Q10H6M JOHN Rx#:[id number] Oral 0 / 0 Output: Urine 50 / 50 Urine Amount (Catheter) 2175 / 2175 Indwelling Urethral Catheter 2174 / 2175 Gastric Drainage 400 / 400 Orogastric Tube 400 / 400 Wound Drainage 65 / 65 70 / 70 Right Abdomen ALEKSANDER Drain 65 / 65 70 / 70 Other: # Incontinent Voids 2 Date of Last Bowel Movement 09/02/18 # Bowel Movements 0 0 Result Diagrams: 09/06/18 05:15 09/06/18 05:15 Objective Remarks: GENERAL: Middle-age male, lying in bed, intubated, obtunded HEENT: Normocephalic. Atraumatic. Pupils 4 mm, equal, round, reactive, conjugate. Mucous membranes are moist NECK: Trachea is midline. There is no JVD. CHEST: Equal chest rise. prvc. peep 5. fio2 40%. CARDIOVASCULAR: bradycardic rate in the 40s, regular rhythm. on phenylephrine. ABDOMEN: Soft, nontender, nondistended. No guarding. Abdominal incision site clean dry and intact. MUSCULOSKELETAL: Pulses 2+. No peripheral edema. NEUROLOGICAL: RASS -4. withdraws x 4. does not follow commands. Assessment and Plan - Assessment and Plan Plan: Assessment: 63-year-old male postop day 3 status post colectomy who now has acute basilar CVA. Devastating stroke distribution. unlikely to survive. grave prognosis. have discussed again with : will need to decide on possible withdraw of care. We will consult palliative care. Active problems: Acute basilar CVA Acute bilateral cerebellar stroke Postop day 3 status post colectomy Acute encephalopathy Plan: remain in ICU Hyperosmolar therapy with 2% saline. Neurosurgery consultation: not recommending intervention given poor prognosis. Emergent embolectomy: failed attempt. Lipids A1c 2D echo Palliative consultation Frequent neurochecks Goal systolic blood pressure 160-180 Avoid anticoagulation given high risk for hemorrhagic conversion Phenylephrine for goal systolics Vent bundle Head of bed elevated No weaning of mechanical ventilation until mental status improves This patient remains critically ill with one or more organ systems which are or may become a threat to life. I have spent in excess of 36 minutes discontinuously in the care and management of this patient. This time is exclusive of procedures, and includes, but is not limited to, evaluation of the patient, review of the medical record, discussions with family, consultants, nursing staff, or respiratory therapy, and documentation in the medical record.
--- NOTE | 2018-09-06 14:45 | ECG ---
Date Performed: 09/05/2018 Time Performed: 11:51:22 PTAGE: 63 years EKG: SINUS TACHYCARDIA NONSPECIFIC ST & T-WAVE ABNORMALITY ABNORMAL RHYTHM ECG Compared to PREVIOUS TRACING , the right ventricular conduction disturbance no longer present, otherw ise no significant change. PREVIOUS TRACIN09/05/2018 06.22 DOCTOR: Ellis Kwon Interpretating Date/Time 09/06/2018 14:43:34
--- NOTE | 2018-09-06 15:33 | P.PNCA ---
Subjective Interval history: Events noted yesterday after consultation Bradycardia, most likely due to brainstem herniation Medications and Allergies Active Medications: Active Medications Hydrocodone Bitart/Acetaminophen (Ringle 5/325) 1 tab PO Q4H PRN PRN Reason: PAIN SCALE 1 TO 4 Hydrocodone Bitart/Acetaminophen (Ringle 5/325) 2 tab PO Q4H PRN PRN Reason: PAIN SCALE 5 TO 10 Albuterol (Albuterol Neb (Mia)) 2.5 mg NEB Q6HR NEB MIA Last Admin: 09/06/18 03:44 Dose: Not Given Alvimopan (Entereg) 12 mg PO BID MIA Stop: 09/10/18 21:01 Last Admin: 09/06/18 08:56 Dose: 12 mg Amlodipine Besylate (Norvasc) 5 mg PO DAILY MIA Last Admin: 09/06/18 09:52 Dose: Not Given Atorvastatin Calcium (Lipitor) 40 mg PO HS MIA Last Admin: 09/06/18 00:31 Dose: Not Given Benzocaine/Menthol (Chloraseptic Sore Throat Lozenge) 1 lozenge BUCCAL UNSCH PRN PRN Reason: SORE THROAT Dextrose (D50w Vial) 50 ml IV.PUSH UNSCH PRN PRN Reason: PER HYPOGLYCEMIA PROTOCOL Enalaprilat (Vasotec Inj) 1.25 mg IV.PUSH Q4H PRN PRN Reason: SBP > 160 mmHg Flumazenil (Romazecon Inj) 0.2 mg IV.PUSH Q1M PRN PRN Reason: OVERSEDATION Last Admin: 09/05/18 14:12 Dose: 0.2 mg Glucagon (Glucagon Inj) 1 mg OTHER UNSCH PRN PRN Reason: for Hypoglycemia Protocol Potassium Chloride (Kcl 40 Meq Premix Inj) 40 meq in 100 mls @ 25 mls/hr IV.SIG UNSCH PRN PRN Reason: for K+ level < 3.0 mEq/L Potassium Chloride (Kcl 20 Meq Premix Inj) 20 meq in 100 mls @ 50 mls/hr IV.SIG UNSCH PRN PRN Reason: for K+ level 3.0-3.5 Midazolam HCl (Versed Inj) 50 mg in 50 mls @ 2 mls/hr IV.CONT TITRATE PRN; Protocol PRN Reason: Per Protocol Last Admin: 09/06/18 05:39 Dose: 5 mg/hr, 5 mls/hr Phenylephrine HCl 40 mg/ (Dextrose) 500 mls @ 30 mls/hr IV.CONT TITRATE PRN; Protocol PRN Reason: BLOOD PRESSURE MANAGEMENT Last Titration: 09/06/18 13:45 Dose: 190 mcg/min, 142.5 mls/hr Sodium Chloride (Sodium Chloride 3% Inj) 500 mls @ 20 mls/hr IV.SIG ONCE ONE Stop: 09/06/18 23:19 Last Admin: 09/06/18 00:32 Dose: Not Given Sodium Chloride 188 meq/ (Sodium Chloride) 1,047 mls @ 42 mls/hr IV.CONT .Q24H [facility] Last Admin: 09/05/18 22:55 Dose: 42 mls/hr Insulin Human Regular (Novolin R Correctional Sugar Inj) 0 units SQ Q6HR [facility]; Protocol Last Admin: 09/06/18 08:47 Dose: Not Given Ketorolac Tromethamine (Toradol Inj) 15 mg IV.PUSH Q6H PRN PRN Reason: BREAKTHROUGH PAIN Stop: 09/06/18 16:48 Levothyroxine Sodium (Synthroid) 125 mcg PO DAILY@0600 [facility] Last Admin: 09/06/18 08:44 Dose: 125 mcg Lorazepam (Ativan) 1 mg PO Q4H PRN PRN Reason: for CIWA 8-10 Lorazepam (Ativan) 2 mg PO Q2H PRN PRN Reason: for CIWA 11-14 Lorazepam (Ativan Inj) 2 mg IV.PUSH Q2H PRN PRN Reason: for CIWA 11-14 Lorazepam (Ativan Inj) 2 mg IV.PUSH Q1H PRN PRN Reason: for CIWA 15-20 Lorazepam (Ativan Inj) 1 mg IV.PUSH Q4H PRN PRN Reason: for CIWA 8-10 Last Admin: 09/05/18 12:45 Dose: 1 mg Lorazepam (Ativan Inj) 2 mg IV.PUSH Q15M PRN PRN Reason: for CIWA > 20 Metoprolol Succinate (Toprol Xl) 25 mg PO DAILY [facility] Last Admin: 09/06/18 09:53 Dose: Not Given Naloxone HCl (Narcan Inj) 0.4 mg IV.PUSH UNSCH PRN PRN Reason: Resp rate < 10 Ondansetron HCl (Zofran Inj) 4 mg IV.PUSH Q6H PRN PRN Reason: NAUSEA OR VOMITING Pantoprazole Sodium (Protonix Inj) 40 mg IV.PUSH DAILY [facility] Last Admin: 09/06/18 09:52 Dose: 40 mg Sodium Chloride (Ns Flush) 2 ml IV.FLUSH BID [facility] Last Admin: 09/06/18 09:52 Dose: 2 ml Sodium Chloride (Ns Flush) 2 ml IV.FLUSH UNSCH PRN PRN Reason: FLUSH AFTER USING IV ACCESS Last Admin: 09/04/18 09:47 Dose: 2 ml Allergies Allergy/AdvReac Type Severity Reaction Status Date / Time No Known Allergies Allergy Verified 09/02/18 10:33 Home Medications Medication Instructions Recorded Confirmed Type amlodipine 5 mg PO DAILY 09/02/18 09/03/18 History atorvastatin 40 mg PO HS 09/02/18 09/03/18 History glimepiride 4 mg PO QAM 09/02/18 09/03/18 History levothyroxine 125 mcg PO DAILY 09/02/18 09/03/18 History metoprolol succinate 25 mg PO DAILY 09/02/18 09/03/18 History polyethylene glycol 3350 [Miralax] 17 g PO DAILY PRN 09/02/18 09/03/18 History Physical Exam Vital signs: Vital Signs 09/05/18 15:49 09/05/18 16:00 09/05/18 16:05 Temperature 98.6 F Pulse Rate 107 H Respiratory Rate 14 20 Blood Pressure 138/88 Pulse Oximetry 98 100 98 09/05/18 19:10 09/05/18 22:54 09/06/18 00:00 Temperature 98.6 F Pulse Rate 60 67 Respiratory Rate 14 16 Blood Pressure 152/84 H Pulse Oximetry 100 99 100 09/06/18 03:59 09/06/18 04:00 09/06/18 04:45 Temperature 99 F Pulse Rate 60 Respiratory Rate 16 16 Blood Pressure 152/78 H Pulse Oximetry 100 100 100 09/06/18 08:00 09/06/18 10:00 09/06/18 12:00 Temperature 99.5 F 99.9 F H Pulse Rate 54 L 52 L 48 L Respiratory Rate 14 14 Blood Pressure 152/71 H 161/67 H Pulse Oximetry 100 100 09/06/18 12:21 09/06/18 14:00 Temperature Pulse Rate 40 L Respiratory Rate 14 Blood Pressure Pulse Oximetry 100 Intake & Output 09/05/18 09/06/18 09/06/18 18:59 06:59 18:59 Intake Total 1060 / 1060 600 / 600 1800 / 1800 Output Total 65 / 65 2695 / 2695 Balance 995 / 995 -5 / -2094 1800 / 1800 Weight 99 kg Intake: IV 1060 / 1060 600 / 600 1800 / 1800 Versed Inj 50 mg In 50 ml @ 2 50 / 50 100 / 100 MG/HR 2 mls/hr IV.CONT TITRATE PRN Rx#:[id number] Neosynephrine Inj 40 MG In D5W 500 / 500 1000 / 1000 Inj 496 ML @ 40 MCG/MIN 30 mls/ hr IV.CONT TITRATE PRN Rx#: [id number] KCl Inj 20 MEQ In LR 1000 mL 1010 / 1010 800 / 800 Inj 1,000 ML @ 100 mls/hr IV. CONT .Q10H6M MIA Rx#:[id number] Oral 0 / 0 Output: Urine 50 / 50 Urine Amount (Catheter) 2174 / 217 Indwelling Urethral Catheter 2174 / 2174 Gastric Drainage 400 / 400 Orogastric Tube 400 / 400 Wound Drainage 65 / 65 70 / 70 Right Abdomen ALEKSANDER Drain 65 / 65 70 / 70 Other: # Incontinent Voids 2 Date of Last Bowel Movement 09/02/18 # Bowel Movements 0 0 Narrative: GENERAL: Intubated SKIN: Warm and dry. HEAD: Atraumatic. Normocephalic. EYES: Pupils equal and round. No scleral icterus. No injection or drainage. ENT: No nasal bleeding or discharge. Mucous membranes pink and moist. NECK: Trachea midline. No JVD. CARDIOVASCULAR: Bradycardia RESPIRATORY: No accessory muscle use. Clear to auscultation. Breath sounds equal bilaterally. GASTROINTESTINAL: Abdomen soft, non-tender, nondistended. Hepatic and splenic margins not palpable. MUSCULOSKELETAL: Extremities without clubbing, cyanosis, or edema. No obvious deformities. NEUROLOGICAL: Intubated, pupils equal and round, no withdraw from noxious stimuli - Urinary Catheter Management Indwelling Urethral Catheter Cath placed during this visit: yes Reason for continuing: Hourly intake/output Insertion date: 09/03/18 Insertion time: 13:46 Results 09/06/18 05:15 10/14/18 05:15 Cardiac Enzymes 09/05/18 09/05/18 09/05/18 Range/Units 06:25 06:25 09:44 AST 57 H (15-37) U/L CK-MB (CK-2) 14.7 H (0.5-3.6) ng/mL B-Natriuretic Peptide 49 (0-100) pg/mL 09/06/18 Range/Units 05:15 AST (15-37) U/L CK-MB (CK-2) 3.2 (0.5-3.6) ng/mL B-Natriuretic Peptide (0-100) pg/mL Coagulation 09/05/18 Range/Units 09:44 B-Natriuretic Peptide 49 (0-100) pg/mL CBC 09/05/18 09/06/18 Range/Units 09:44 05:15 WBC 19.3 H 18.4 H (4.0-11.0) th/mm3 RBC 4.22 L 3.72 L (4.50-5.90) mil/mm3 Hgb 13.3 11.7 L (13.0-17.0) gm/dL Hct 38.7 L 33.9 L (39.0-51.0) % Plt Count 219 242 (150-450) th/mm3 Neut # (Auto) 14.9 H (1.8-7.7) th/mm3 Lymph # (Auto) 1.9 (1.0-4.8) th/mm3 [place] # (Auto) 2.3 H (0.0-0.9) th/mm3 Eos # (Auto) 0.0 (0.0-0.4) th/mm3 Baso # (Auto) 0.1 (0.0-0.2) th/mm3 Comprehensive Metabolic Panel 09/05/18 09/05/18 09/06/18 Range/Units 06:25 23:51 05:15 Sodium 140 139 138 (136-145) meq/L Potassium 4.0 3.5 (3.5-5.1) meq/L Chloride 103 103 (98-107) meq/L Carbon Dioxide 24.5 26.3 (21.0-32.0) meq/L BUN 12 12 (7-18) mg/dL Creatinine 0.90 0.69 (0.60-1.30) mg/dL Calcium 8.9 8.4 L (8.5-10.1) mg/dL AST 57 H (15-37) U/L ALT 32 (12-78) U/L Alkaline Phosphatase 100 (45-117) U/L Total Protein 6.8 (6.4-8.2) g/dL Albumin 2.8 L (3.4-5.0) g/dL Intake and Output 09/06/18 09/06/18 09/06/18 06:59 14:59 22:59 Intake Total 550 / 550 1800 / 1800 Output Total 2695 / 2695 Balance -2145 / -2145 1800 / 1800 Intake: IV 550 / 550 1800 / 1800 Versed Inj 50 mg In 50 ml @ 2 50 / 50 MG/HR 2 mls/hr IV.CONT TITRATE PRN Rx#:[id number] Neosynephrine Inj 40 MG In D5W 500 / 500 1000 / 1000 Inj 496 ML @ 40 MCG/MIN 30 mls/ hr IV.CONT TITRATE PRN Rx#: [id number] KCl Inj 20 MEQ In LR 1000 mL 800 / 800 Inj 1,000 ML @ 100 mls/hr IV. CONT .Q10H6M MIA Rx#:[id number] Output: Urine 50 / 50 Urine Amount (Catheter) 2175 / 2175 Indwelling Urethral Catheter 2175 / 2175 Gastric Drainage 400 / 400 Orogastric Tube 400 / 400 Wound Drainage 70 / 70 Right Abdomen ALEKSANDER Drain 70 / 70 Other: # Bowel Movements 0 Weight 99 kg - Imaging and Cardiology Imaging: Impressions Chest CTA 09/05/18 00:00 CONCLUSION: 1. No CT evidence for pulmonary artery embolism to the proximal segmental branches. More distal segmental and subsegmental branches are incompletely evaluated. 2. Ueomr-cl-nrimignk amount of free intraperitoneal air in the visualized portions of the upper abdomen. Etiology is unclear on this exam. 3. Mild bibasilar airspace consolidation, presumably atelectasis. 4. Diffusely dilated fluid-filled esophagus. 5. Prominent coronary artery calcifications with postsurgical features of prior CABG. 6. Prominent hepatic steatosis. Head CT 09/05/18 00:00 CONCLUSION: 1. Limited evaluation of the posterior fossa due to patient motion. However, there are large regions of bilateral hemispheric hypodensities concerning for possible cerebellar hemispheric infarcts. Chronicity is uncertain given lack of prior exams and suboptimal visualization. MRI examination may be performed as clinically appropriate. 2. Moderate diffuse cerebral atrophy that is slightly more than expected for stated age. . Head MRI 09/05/18 00:00 CONCLUSION: Large bilateral acute cerebellar infarcts. Left-sided pontine acute infarct. Left-sided occipital lobe infarcts. Findings indicate multiple bilateral posterior distribution infarcts. No evidence of mass effect or midline shift. Head MRA 09/05/18 00:00 CONCLUSION: 1. Findings consistent with basilar artery thrombosis. Right IT SECURITY ANALYST territory is spared due to origin. Findings were personally discussed at length with Dr. Doan. Neck MRA 09/05/18 00:00 CONCLUSION: 1. 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 The left vertebral artery is dominant. Standard 3 vessel arch anatomy. 2. No significant carotid flow-limiting stenosis. Percent stenosis is calculated using the diameter of the stenotic region over the diameter of the normal distal internal carotid artery Chest X-Ray 09/05/18 06:12 CONCLUSION: Mild basilar airspace disease. No effusion or pneumothorax. Head CT 09/06/18 05:00 CONCLUSION: 1. Evolving infarcts in both cerebellar hemispheres with mild mass effect. No hemorrhage. Small infarcts medial left occipital lobe and left ina. . 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
[2018-09-06 21:55] LABS: Sodium 138 meq/L (136-145)
--- NOTE | 2018-09-06 23:11 | IR ---
EXAM DATE: 09/05/2018 6:46 PM EDT AGE/SEX: 63 years / Male INDICATIONS: Patient arrives as a Stroke alert. CLINICAL DATA: This is the patient's initial encounter. Patient reports that signs and symptoms have been present for 2 days and indicates a pain score of Nonresponsive. MEDICAL/SURGICAL HISTORY: Asthma. Diabetes. Hypertension. CAD,IL,hypothroid,SVT, sleep apnea , sigmoid colon mass, CABG. Colon resection. Heart cath,lt carpal tunnel release. COMPARISON: No prior exams available for comparison. FLUORO TIME (min): 50.5 IMAGE SERIES: 33 ACCESS SITE: Right femoral artery CONTRAST (cc): 200 cc Visipaque (iodixanol) MEDICATION(S): 3000 u Heparin IV 10 mg Verapamil IA Anesthesia and pain control was provided by the Anesthesia department. DEVICE(S): Right common femoral artery Angio-Seal 8 FR Left vertebral artery SOLITAIRE 4 X40 Left vertebral artery FARHAD 68 . . TIMELINE: Interventional Team Called: 1814 Interventional Team Arrived: 1835 Interventional Team Ready 1913 Patient Arrival: 1926 Groin Puncture: 1954 Recanalization: 2125 PROCEDURE : 1. Ultrasound-guided puncture of the access site. 2. Angiography of the access site prior to closure device. 3. Conscious sedation with continuous EKG and Oximetry monitoring. 4. Percutaneous closure of the access site. 5. Angiography of the right vertebral artery 6. Angiography of the left vertebral artery 7. Angiography of the basilar artery via left vertebral artery approach 8. Embolectomy with retrieval stent and suction The risks, benefits and alternatives to the procedure were explained and verbal and written consent w as obtained. The site was prepped in sterile fashion. Full sterile technique was used, including cap, mask, sterile gloves and gown and a large sterile sheet. Hand hygiene and 2% chlorhexidine and/or be tadine/alcohol prep was utilized per protocol for cutaneous antisepsis. The skin and subcutaneous tis sues were infiltrated with local anesthetic solution. Sterile gel and sterile probe cover were utili zed for ultrasound guidance. With ultrasound and fluoroscopic guidance the selected artery was punctured and a vascular sheath was placed. Angiography of the common femoral artery was performed for evaluation prior to percutaneous closure device placement. A JB2 catheter was placed in the right vertebral artery subsequent placement of a guide catheter. The right vertebral artery was slightly smaller than the left but antegrade flow persisted. Temperature automated access of the basilar artery via the right-sided approach though this appeared chronically occluded. JB2 catheter was placed in the left vertebral artery and angiography was performed demonstrating occl usion at the level of C1 as seen on the right side. A guide sheath was placed in the left vertebral a rtery and repeat angiography was performed to demonstrate position. Over the prescribed microcatheter the occlusion of the left vertebral and basilar segment was crossed and the microcatheter was placed into the distal basilar artery. The prescribed stent was used and expanded. With the stent expanded antegrade flow was identified. After 5 minutes the stent was removed under suction with judaism o f antegrade flow. Delayed angiography after 5 additional minutes demonstrates reocclusion at the init ial site. Repeat thrombectomy was performed using the stent though antegrade flow could not be mainta ined. The vessel could not be further catheterized and the procedure was terminated without restorati on of antegrade flow. Hemostasis was obtained with the prescribed medicated closure device. Conscious sedation was performe d with the prescribed dosages and duration as above. EKG and oximetry remained stable throughout the procedure. The patient was sent to post anesthesia recovery in stable condition. CONCLUSION: 1. Unsuccessful recanalization of vertebral arteries and basilar segment. Electronically signed by: Liam Cabrera MD 09/06/2018 11:10 PM EDT
[2018-09-06] MEDS: Sodium Chloride 23.4% Inj 188 MEQ in Sod Chloride 0.9% Inj 1,000 ML IV.CONT SCH (23:14)
[2018-09-07] MEDS: Insulin NovoLIN Regular Correctional Sugar Inj SQ SCH ×3 (00:06→13:11)
[2018-09-07] MEDS: Phenylephrine Inj 40 MG in Sodium Chlor 0.9% Inj 496 ML IV.CONT PRN ×3 (00:35→10:53)
[2018-09-07 05:20] LABS: Sodium 138 meq/L (136-145)
--- NOTE | 2018-09-07 07:30 | P.PNCC ---
Subjective Subjective Remarks/Hospital Course: Hospital Course: This is a 63-year-old male who is postop day 2 status post colectomy for colon cancer. Postop day 1 he was quite agitated and was started on a Airam protocol. He continues to be agitated and then became quite altered and then obtunded. Emergent CT head demonstrates questionable hypodensities in the posterior fossa. He arrives to the ICU for higher level of care. I evaluated the patient on immediate arrival to the ICU. He was quite obtunded and altered only responsive to sternal rub. I discussed his care with the hospitalist attending. I also discussed his care with his who is concerned about his acute change in mentation. We proceeded with emergent intubation. 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 I discussed the case extensively with the interventional neuroradiology team as well as neurosurgery, neurology, cardiology, and his primary surgery team. Given subacute nature of the stroke and that it may be greater than 24 hours out, we consented the for the high risk of hemorrhagic conversion with intervention, but then proceeded with endovascular emergent intervention. No additional information is available the patient due to his somnolence. Review of systems is unobtainable. Subjective: 09/06: unable to retrieve basilar clot. prognosis now grave. discussed with IR and nsgy: best served without any further aggressive care, as best outcome now would likely be persistent vegetative state. would like to make the patient DNR. 09/07: now posturing. remains bradycardic. still breaths over the vent. pupils still 2mm and reactive. poor prognosis. family planning on withdraw of care today. Objective Vital Signs / I&O: Vital Signs 09/06/18 08:00 09/06/18 10:00 09/06/18 12:00 Temperature 37.5 C 37.7 C H Pulse Rate 54 L 52 L 48 L Respiratory Rate 14 14 Blood Pressure 152/71 H 161/67 H Pulse Oximetry 100 100 09/06/18 12:21 09/06/18 14:00 09/06/18 16:00 Temperature 37.3 C Pulse Rate 40 L 50 L Respiratory Rate 14 14 Blood Pressure 164/78 H Pulse Oximetry 100 100 09/06/18 17:34 09/06/18 17:38 09/06/18 18:00 Temperature Pulse Rate 54 L 54 L Respiratory Rate 15 16 Blood Pressure Pulse Oximetry 100 09/06/18 20:00 09/06/18 20:24 09/06/18 22:00 Temperature 37.7 C H Pulse Rate 60 56 L 54 L Respiratory Rate 14 15 Blood Pressure 174/78 H Pulse Oximetry 100 100 09/06/18 23:40 09/07/18 00:00 09/07/18 02:00 Temperature 36.5 C Pulse Rate 54 L 54 L Respiratory Rate 15 14 Blood Pressure 165/79 H Pulse Oximetry 100 100 09/07/18 04:00 09/07/18 04:07 09/07/18 06:00 Temperature 37.1 C Pulse Rate 58 L 60 60 Respiratory Rate 14 16 Blood Pressure 166/80 H Pulse Oximetry 100 100 Intake & Output 09/06/18 09/07/18 09/07/18 18:59 06:59 18:59 Intake Total 2360 / 2360 204 / 2047 Output Total 2685 / 2685 60 / 60 Balance -325 / -325 1986 / 1986 Weight 99.4 kg Intake: IV 2300 / 2300 204 / 2046 Neosynephrine Inj 40 MG In D5W 1500 / 1500 500 / 500 Inj 496 ML @ 40 MCG/MIN 30 mls/ hr IV.CONT TITRATE PRN Rx#: [id number] Neosynephrine Inj 40 MG In NS 500 / 500 Inj 496 ML @ 40 MCG/MIN 30 mls/ hr IV.CONT TITRATE PRN Rx#: [id number] KCl Inj 20 MEQ In LR 1000 mL 800 / 800 Inj 1,000 ML @ 100 mls/hr IV. CONT .Q10H6M [facility] Rx#:[id number] Sodium Chloride 23.4% Inj 188 1047 / 1047 MEQ In NS Inj 1,000 ML @ 42 mls /hr IV.CONT .Q24H [facility] Rx#: [id number] Other 60 / 60 Output: Urine Amount (Catheter) 2650 / 2650 Indwelling Urethral Catheter 2650 / 2650 Wound Drainage 35 / 35 60 / 60 Right Abdomen ALEKSANDER Drain 35 / 35 60 / 60 Other: Date of Last Bowel Movement 09/02/18 09/02/18 # Bowel Movements 0 Result Diagrams: 09/06/18 05:15 09/07/18 04:28 Objective Remarks: GENERAL: Middle-age male, lying in bed, intubated, obtunded HEENT: Normocephalic. Atraumatic. Pupils 2 mm, equal, round, reactive, conjugate. Mucous membranes are moist NECK: Trachea is midline. There is no JVD. CHEST: Equal chest rise. prvc. peep 5. fio2 40%. CARDIOVASCULAR: bradycardic rate in the 40s, regular rhythm. on phenylephrine. ABDOMEN: Soft, nontender, nondistended. No guarding. Abdominal incision site clean dry and intact. MUSCULOSKELETAL: Pulses 2+. No peripheral edema. NEUROLOGICAL: RASS -4. GCS 4. extensor posturing. does not follow commands. breaths over the vent. Assessment and Plan - Assessment and Plan Plan: Assessment: 63-year-old male postop day 4 status post colectomy who now has acute basilar CVA. Devastating stroke distribution. unlikely to survive. grave prognosis. Palliative care consulted. likely withdraw of care today. Active problems: Acute basilar CVA Acute bilateral cerebellar stroke Postop day 4 status post colectomy Acute encephalopathy Plan: remain in ICU Hyperosmolar therapy with 2% saline. Neurosurgery consultation: not recommending intervention given poor prognosis. Emergent embolectomy: failed attempt. Lipids A1c 2D echo Palliative consultation Frequent neurochecks Goal systolic blood pressure 160-180 Avoid anticoagulation given high risk for hemorrhagic conversion Phenylephrine for goal systolics Vent bundle Head of bed elevated No weaning of mechanical ventilation until mental status improves if family requests, will move foreward with withdraw of care. This patient remains critically ill with one or more organ systems which are or may become a threat to life. I have spent in excess of 31 minutes discontinuously in the care and management of this patient. This time is exclusive of procedures, and includes, but is not limited to, evaluation of the patient, review of the medical record, discussions with family, consultants, nursing staff, or respiratory therapy, and documentation in the medical record.
--- NOTE | 2018-09-07 11:23 | P.CONPAL ---
Consult Service: Palliative Care Requesting Physician: Robby Rowe Reason for Consult: a. To assist with evaluation and management of symptoms including: comfort treatment at EOL b. To assist medical decision maker(s) with: better understanding of current medical conditions; weighing benefits/burdens of medical treatment options; making medical treatment decisions. Primary Care Provider: Malik Jordan DO History of Present Illness History of Present Illness: this 63 year old pt was admitted to [facility] on 09/03/18 for planned colectomy with anastomosis for known sigmoid colon carcinoma. This was diagnosed in May of this year when presenting to the ED with abdominal pain, diverticulitis, poor oral bowel habits. He continued to have issues was referred to gastroenterology for colonoscopy which findings of near obstructing lesions of sigmoid colon. He had then been scheduled for resection preoperative CT of the chest was obtained which showed 2 small lesions in the lung they recommended follow-up CT in a year. Too small to characterize. No metastasis to liver noted. * Surgery apparently uneventful. Postoperatively he had some confusion. Postop day #2 09/05 noted with continued agitation and confusion. He was started on CIWA protocol for concern for alcohol withdrawal reports drinks 2 cocktails a night possibly more. Neurology consulted. Concerned that delirium could be alcohol related. Ordered for EEG. Also ordered for CT brain without contrast hold pain medications. If still agitated in 24 hours would order MRI brain. He is moving everything less concern for a stroke. * CTA chest no PE identified * CT brain= 1. Limited evaluation of the posterior fossa due to patient motion. However, there are large regions of bilateral hemispheric hypodensities concerning for possible cerebellar hemispheric infarcts. Chronicity is uncertain given lack of prior exams and suboptimal visualization. MRI examination may be performed as clinically appropriate. 2. Moderate diffuse cerebral atrophy that is slightly more than expected for stated age. * MRI brain 09/05=Large bilateral acute cerebellar infarcts. Left-sided pontine acute infarct. Left-sided occipital lobe infarcts. Findings indicate multiple bilateral posterior distribution infarcts. No evidence of mass effect or midline shift. * Neck MRA= 1. 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 The left vertebral artery is dominant. Standard 3 vessel arch anatomy.2. No significant carotid flow-limiting stenosis. * Head MRA=1. Findings consistent with basilar artery thrombosis. Right TRUCKLOAD OWNER OPERATOR territory is spared due to origin.Findings were personally discussed at length with Dr. Doan * Cardiology consulted for abnormal EKG--patient noted with history of SVT, CAD with history of coronary artery bypass graft x4, abnormal EKG is noted to be not significantly different than EKG in office. No further workup indicated at this time. Overall more concerns for neurologic status which was discussed with medical attending PA, brain imaging. * 09/05/18 was sent for emergent endovascular thrombectomy, which was felt to be only hope for any potential meaningful recovery, also felt to be high risk with poor outcome even with intervention. Patient intubated for hypoxia. * Neurosurgery consulted 09/06= repeat CT brain demonstrating evolves aggressive medical management with hypertonic saline. Since of discussion with family discussing possible surgical decompression however due to basilar occlusion and inability to successfully recannulate patient with significant associated neurological morbidity likely need for long-term tracheostomy and PEG tube and high mortality. Patient family reporting he not want aggressive intervention if would not provide significant improvement in quality of life. Recommended for discussion of goals consider palliative care. * 09/07: Now with posturing. Bradycardic. Overbreathing on vent. Overall poor prognosis. Palliative care consulted to assist with clarification of goals of treatment, possible transition to comfort measures only. Pt seen in room , dual visit w Christiano Doan [employer]ACH[employer]UFACTURING SUPERVISOR palliative SW. Multiple family members at bedside, Dr Rowe talking w family, completing discussion. on neosynephrine drip 150mcgs/min. minimally responsive to exam. , daughter, sister in law present. informs they have just had indepth meeting w critical care. She endorses understanding of significant CVA and associated brain damage which will limit pt functional recover. She tells us that they have elected to proceed with companionate withdraw of life support based on pt known and written wishes. They would like to do this at 1pm today. Anticipatory guidance provided regarding withdrawal procedure and post withdrawal comfort measures. Briefly review hospice option if he survives beyond 24 hr. review prognosis, life expectancy probable hours to days. Limited exploration of psychosocial hx due to context of discussion. Timber Cutter support offered indicates they have clergy known to them coming, declines hospital reciprocating drill operator. d/w primary nurse, critical care attending. Exhibits b, c signed and in chart. Critical care will enter orders. Function/Cognitive Trajectory: lived at home w , independent w ADLs prior to admission. No functional or cognitive deficits. Review of Systems unobtainable due to endotracheal tube, unobtainable due to mental status PMF - History History Provided By: Patient, Family Member, Medical Record - Medical History Medical History: Medical History (Last Reviewed 09/07/18 @ 11:20 by ROXANA Mejia) Abdominal pain Arthritis Asthma CAD (coronary artery disease) Diabetes H/O acute myocardial infarction High cholesterol History of left heart catheterization Hypertension Hypothyroid SVT (supraventricular tachycardia) Sleep apnea - Surgical History Surgical History: Surgical History (Last Updated 09/07/18 @ 11:21 by ROXANA Mejia) S/P colectomy S/P CABG x 4 - Family History Family History: Family History (Last Reviewed 09/07/18 @ 12:39 by ROXANA Mejia) Other Heart disease - Tobacco History Second Hand Smoke Exposure: Yes Tobacco Use In Past 30 Days: Yes Smoking Status: Current every day smoker Tobacco Type: Cigars - Alcohol History How Often Do You Have a Drink Containing Alcohol: 4 or more times a week (2 + cocktails a night) - Substance Use History Substance History: No History of Abuse - Immunization History Tetanus Immunization: >5 Years Hx Influenza Vaccine This Season: No Medications and Allergies Active Medications: Active Medications Hydrocodone Bitart/Acetaminophen ([place] 5/325) 1 tab PO Q4H PRN PRN Reason: PAIN SCALE 1 TO 4 Hydrocodone Bitart/Acetaminophen ([place] 5/325) 2 tab PO Q4H PRN PRN Reason: PAIN SCALE 5 TO 10 Albuterol (Albuterol Neb (Mia)) 2.5 mg NEB Q6HR NEB MIA Last Admin: 09/07/18 09:06 Dose: 2.5 mg Alvimopan (Entereg) 12 mg PO BID MIA Stop: 09/10/18 21:01 Last Admin: 09/06/18 21:08 Dose: 12 mg Amlodipine Besylate (Norvasc) 5 mg PO DAILY MIA Last Admin: 09/06/18 09:52 Dose: Not Given Atorvastatin Calcium (Lipitor) 40 mg PO HS MIA Last Admin: 09/06/18 21:08 Dose: 40 mg Benzocaine/Menthol (Chloraseptic Sore Throat Lozenge) 1 lozenge BUCCAL UNSCH PRN PRN Reason: SORE THROAT Dextrose (D50w Vial) 50 ml IV.PUSH UNSCH PRN PRN Reason: PER HYPOGLYCEMIA PROTOCOL Enalaprilat (Vasotec Inj) 1.25 mg IV.PUSH Q4H PRN PRN Reason: SBP > 160 mmHg Flumazenil (Romazecon Inj) 0.2 mg IV.PUSH Q1M PRN PRN Reason: OVERSEDATION Last Admin: 09/05/18 14:12 Dose: 0.2 mg Glucagon (Glucagon Inj) 1 mg OTHER UNSCH PRN PRN Reason: for Hypoglycemia Protocol Potassium Chloride (Kcl 40 Meq Premix Inj) 40 meq in 100 mls @ 25 mls/hr IV.SIG UNSCH PRN PRN Reason: for K+ level < 3.0 mEq/L Potassium Chloride (Kcl 20 Meq Premix Inj) 20 meq in 100 mls @ 50 mls/hr IV.SIG UNSCH PRN PRN Reason: for K+ level 3.0-3.5 Midazolam HCl (Versed Inj) 50 mg in 50 mls @ 2 mls/hr IV.CONT TITRATE PRN; Protocol PRN Reason: Per Protocol Last Titration: 09/06/18 19:00 Dose: 0 mg/hr, 0 mls/hr Sodium Chloride 188 meq/ (Sodium Chloride) 1,047 mls @ 42 mls/hr IV.CONT .Q24H MIA Last Admin: 09/06/18 23:14 Dose: 42 mls/hr Phenylephrine HCl 40 mg/ (Sodium Chloride) 500 mls @ 30 mls/hr IV.CONT TITRATE PRN; Protocol PRN Reason: BLOOD PRESSURE MANAGEMENT Last Admin: 09/07/18 10:53 Dose: 150 mcg/min, 112.5 mls/hr Insulin Human Regular (Novolin R Correctional Sugar Inj) 0 units SQ Q6HR MIA; Protocol Last Admin: 09/07/18 06:46 Dose: 5 units Levothyroxine Sodium (Synthroid) 125 mcg PO DAILY@0600 MIA Last Admin: 09/06/18 08:44 Dose: 125 mcg Lorazepam (Ativan) 1 mg PO Q4H PRN PRN Reason: for CIWA 8-10 Lorazepam (Ativan) 2 mg PO Q2H PRN PRN Reason: for CIWA 11-14 Lorazepam (Ativan Inj) 2 mg IV.PUSH Q2H PRN PRN Reason: for CIWA 11-14 Lorazepam (Ativan Inj) 2 mg IV.PUSH Q1H PRN PRN Reason: for CIWA 15-20 Lorazepam (Ativan Inj) 1 mg IV.PUSH Q4H PRN PRN Reason: for CIWA 8-10 Last Admin: 09/05/18 12:45 Dose: 1 mg Lorazepam (Ativan Inj) 2 mg IV.PUSH Q15M PRN PRN Reason: for CIWA > 20 Metoprolol Succinate (Toprol Xl) 25 mg PO DAILY [facility] Last Admin: 09/06/18 09:53 Dose: Not Given Naloxone HCl (Narcan Inj) 0.4 mg IV.PUSH UNSCH PRN PRN Reason: Resp rate < 10 Ondansetron HCl (Zofran Inj) 4 mg IV.PUSH Q6H PRN PRN Reason: NAUSEA OR VOMITING Pantoprazole Sodium (Protonix Inj) 40 mg IV.PUSH DAILY [facility] Last Admin: 09/06/18 09:52 Dose: 40 mg Sodium Chloride (Ns Flush) 2 ml IV.FLUSH BID [facility] Last Admin: 09/06/18 23:40 Dose: Not Given Sodium Chloride (Ns Flush) 2 ml IV.FLUSH UNSCH PRN PRN Reason: FLUSH AFTER USING IV ACCESS Last Admin: 09/04/18 09:47 Dose: 2 ml Allergies Allergy/AdvReac Type Severity Reaction Status Date / Time No Known Allergies Allergy Verified 09/02/18 10:33 Home Medications Medication Instructions Recorded Confirmed Type amlodipine 5 mg PO DAILY 09/02/18 09/03/18 History atorvastatin 40 mg PO HS 09/02/18 09/03/18 History glimepiride 4 mg PO QAM 09/02/18 09/03/18 History levothyroxine 125 mcg PO DAILY 09/02/18 09/03/18 History metoprolol succinate 25 mg PO DAILY 09/02/18 09/03/18 History polyethylene glycol 3350 [Miralax] 17 g PO DAILY PRN 09/02/18 09/03/18 History Advance Directives Living Will: Yes Healthcare Surrogate: No Documented care wishes: Living will= if terminal, endstage, or persistent vegetative conditions: requests No cardiac rescusitation, no mech respiration, no blood or blood products, no surgery or invasive tests, no dialysis, no nutrition/hydration, no pacemaker. Ethical and Legal Issues: Patient ,due to clinical condition, is unable to participate in decision- making. Not expected to recover neurologic function. Per [place] statutes his Aydee would be appropriate proxy decision maker. Physical Exam Vital Signs: Vital Signs - 24 hr 09/06/18 12:00 09/06/18 12:21 09/06/18 14:00 Temperature 99.9 F H Pulse Rate 48 L 40 L Respiratory Rate 14 14 Blood Pressure 161/67 H Pulse Oximetry 100 100 09/06/18 16:00 09/06/18 17:34 09/06/18 17:38 Temperature 99.2 F Pulse Rate 50 L 54 L Respiratory Rate 14 15 16 Blood Pressure 164/78 H Pulse Oximetry 100 100 09/06/18 18:00 09/06/18 20:00 09/06/18 20:24 Temperature 99.9 F H Pulse Rate 54 L 60 56 L Respiratory Rate 14 15 Blood Pressure 174/78 H Pulse Oximetry 100 100 09/06/18 22:00 09/06/18 23:40 09/07/18 00:00 Temperature 97.7 F Pulse Rate 54 L 54 L Respiratory Rate 15 14 Blood Pressure 165/79 H Pulse Oximetry 100 100 09/07/18 02:00 09/07/18 04:00 09/07/18 04:07 Temperature 98.8 F Pulse Rate 54 L 58 L 60 Respiratory Rate 14 16 Blood Pressure 166/80 H Pulse Oximetry 100 100 09/07/18 06:00 09/07/18 08:23 09/07/18 09:06 Temperature Pulse Rate 60 60 Respiratory Rate 15 14 Blood Pressure Pulse Oximetry 100 I&O: Intake & Output 09/05/18 09/06/18 09/07/18 09/08/18 06:59 06:59 06:59 06:59 Intake Total 3870 / 3870 1660 / 1660 4407 / 4407 500 / 500 Output Total 2070 / 2070 2760 / 2760 2745 / 2745 Balance 1800 / 1800 -1100 / -1100 1662 / 1662 500 / 500 Weight 96.8 kg 99 kg 99.4 kg Physical Exam: CONSTITUTIONAL/GENERAL: This is an adequately nourished patient, on [facility] vent TUBES/LINES/DRAINS:multiple PIV BUE, RT radial art line, augustin catheter, ETT, OGT SKIN: No jaundice, rashes, or lesions. No wounds seen anteriorly. Skin warm/ dry HEAD: Atraumatic. Normocephalic. EYES: Pupils 2.5mm, slight reaction to light. No scleral icterus. No injection or drainage. Fundi not examined. ENT: Nose without bleeding or purulent drainage. unable to visualize oropharynx 2/2 ett, ogt NECK: Trachea midline. Supple, nontender. No palpable thyroid enlargement or nodularity. CARDIOVASCULAR: Regular rate and rhythm without murmur. No JVD. Peripheral pulses symmetric. RESPIRATORY/CHEST: Symmetric, unlabored respirations via mech vent. Over breaths vent rate 1-2x. Clear to auscultation. Breath sounds equal bilaterally. GASTROINTESTINAL: Abdomen soft, round, nondistended. No hepato-splenomegaly, or palpable masses. Bowel sounds hypoactive GENITOURINARY: Without palpable bladder distension. Augustin catheter in place clear yellow urine. MUSCULOSKELETAL: Extremities without clubbing, cyanosis, or edema. No mottling or clubbing. LYMPHATICS: No palpable cervical or supraclavicular adenopathy. NEUROLOGICAL: minimally responsive to exam- eyes open spont at times, does not track, does not blink to threat. Slight withdrawal BLE to pain. BUE with slight extension to pain. PSYCHIATRIC: limited assess due to clinical condition. Diagnostic Tests Laboratory: Laboratory Results - last 72 hr 09/04/18 09/04/18 09/04/18 11:59 16:27 17:22 WBC RBC Hgb Hct MCV MCH MCHC RDW Plt Count MPV Prelim Diff (Auto) Neut % (Auto) Lymph % (Auto) [place] % (Auto) Eos % (Auto) Baso % (Auto) Neut # (Auto) Lymph # (Auto) [place] # (Auto) Eos # (Auto) Baso # (Auto) WBC Differential Seg Neuts % (Manual) Lymphocytes % (Manual) Monocytes % (Manual) Basophils % (Manual) Abs Neuts (Manual) Differential Comment Platelet Estimate Platelet Morphology RBC Morphology Puncture Site Patient Temperature O2 Saturation ABG pH ABG pCO2 ABG pO2 ABG HCO3 ABG O2 Content ABG Base Excess ABG Methemoglobin Edil Test Hemoglobin Carboxyhemoglobin O2 Delivery Device Liter Flow Critical Value Sodium Potassium Chloride Carbon Dioxide Anion Gap BUN Creatinine Estimated GFR POC Glucose 320 H 284 H 229 H Random Glucose Osmolality Calcium Total Bilirubin AST ALT Alkaline Phosphatase Total Creatine Kinase CK-MB (CK-2) CK-MB (CK-2) % B-Natriuretic Peptide Total Protein Albumin 09/05/18 09/05/18 09/05/18 00:19 04:30 06:25 WBC RBC Hgb Hct MCV MCH MCHC RDW Plt Count MPV Prelim Diff (Auto) Neut % (Auto) Lymph % (Auto) [place] % (Auto) Eos % (Auto) Baso % (Auto) Neut # (Auto) Lymph # (Auto) [place] # (Auto) Eos # (Auto) Baso # (Auto) WBC Differential Seg Neuts % (Manual) Lymphocytes % (Manual) Monocytes % (Manual) Basophils % (Manual) Abs Neuts (Manual) Differential Comment Platelet Estimate Platelet Morphology RBC Morphology Puncture Site Patient Temperature O2 Saturation ABG pH ABG pCO2 ABG pO2 ABG HCO3 ABG O2 Content ABG Base Excess ABG Methemoglobin Edil Test Hemoglobin Carboxyhemoglobin O2 Delivery Device Liter Flow Critical Value Sodium 140 Potassium 4.0 Chloride 103 Carbon Dioxide 24.5 Anion Gap 13 BUN 12 Creatinine 0.90 Estimated GFR 85 L POC Glucose 273 H 215 H Random Glucose 218 H D Osmolality Calcium 8.9 Total Bilirubin 1.1 H AST 57 H ALT 32 Alkaline Phosphatase 100 Total Creatine Kinase CK-MB (CK-2) CK-MB (CK-2) % B-Natriuretic Peptide Total Protein 6.8 Albumin 2.8 L 09/05/18 09/05/18 09/05/18 06:25 06:37 09:44 WBC 19.3 H RBC 4.22 L Hgb 13.3 Hct 38.7 L MCV 91.9 MCH 31.5 MCHC 34.3 RDW 13.6 Plt Count 219 MPV 7.4 Prelim Diff (Auto) Slide review pending Neut % (Auto) 77.5 H Lymph % (Auto) 9.8 [place] % (Auto) 12.2 H Eos % (Auto) 0.0 Baso % (Auto) 0.5 Neut # (Auto) 14.9 H Lymph # (Auto) 1.9 [place] # (Auto) 2.3 H Eos # (Auto) 0.0 Baso # (Auto) 0.1 WBC Differential Manual diff final Seg Neuts % (Manual) 78 H Lymphocytes % (Manual) 11 Monocytes % (Manual) 10 H Basophils % (Manual) 1 Abs Neuts (Manual) 15.1 H Differential Comment . Platelet Estimate Normal Platelet Morphology Normal RBC Morphology Normal Puncture Site Right radial Patient Temperature 98.6 O2 Saturation 88 L* ABG pH 7.46 H ABG pCO2 37 L ABG pO2 61 ABG HCO3 26 ABG O2 Content 15.4 ABG Base Excess 1.9 ABG Methemoglobin 1.2 Edil Test Present Hemoglobin 12.4 Carboxyhemoglobin 1.5 O2 Delivery Device Nasal cannula Liter Flow 2.00 Critical Value Yes Sodium Potassium Chloride Carbon Dioxide Anion Gap BUN Creatinine Estimated GFR POC Glucose Random Glucose Osmolality Calcium Total Bilirubin AST ALT Alkaline Phosphatase Total Creatine Kinase 777 H CK-MB (CK-2) 14.7 H CK-MB (CK-2) % 1.9 B-Natriuretic Peptide Total Protein Albumin 09/05/18 09/05/18 09/05/18 09:44 11:07 23:51 WBC RBC Hgb Hct MCV MCH MCHC RDW Plt Count MPV Prelim Diff (Auto) Neut % (Auto) Lymph % (Auto) [place] % (Auto) Eos % (Auto) Baso % (Auto) Neut # (Auto) Lymph # (Auto) [place] # (Auto) Eos # (Auto) Baso # (Auto) WBC Differential Seg Neuts % (Manual) Lymphocytes % (Manual) Monocytes % (Manual) Basophils % (Manual) Abs Neuts (Manual) Differential Comment Platelet Estimate Platelet Morphology RBC Morphology Puncture Site Patient Temperature O2 Saturation ABG pH ABG pCO2 ABG pO2 ABG HCO3 ABG O2 Content ABG Base Excess ABG Methemoglobin Edil Test Hemoglobin Carboxyhemoglobin O2 Delivery Device Liter Flow Critical Value Sodium 139 Potassium Chloride Carbon Dioxide Anion Gap BUN Creatinine Estimated GFR POC Glucose 238 H Random Glucose Osmolality Calcium Total Bilirubin AST ALT Alkaline Phosphatase Total Creatine Kinase CK-MB (CK-2) CK-MB (CK-2) % B-Natriuretic Peptide 49 Total Protein Albumin 09/06/18 09/06/18 09/06/18 00:35 05:15 05:15 WBC 18.4 H RBC 3.72 L Hgb 11.7 L Hct 33.9 L MCV 91.0 MCH 31.3 MCHC 34.4 RDW 13.7 Plt Count 242 MPV 7.2 Prelim Diff (Auto) Neut % (Auto) Lymph % (Auto) [place] % (Auto) Eos % (Auto) Baso % (Auto) Neut # (Auto) Lymph # (Auto) [place] # (Auto) Eos # (Auto) Baso # (Auto) WBC Differential Seg Neuts % (Manual) Lymphocytes % (Manual) Monocytes % (Manual) Basophils % (Manual) Abs Neuts (Manual) Differential Comment Platelet Estimate Platelet Morphology RBC Morphology Puncture Site Patient Temperature O2 Saturation ABG pH ABG pCO2 ABG pO2 ABG HCO3 ABG O2 Content ABG Base Excess ABG Methemoglobin Edil Test Hemoglobin Carboxyhemoglobin O2 Delivery Device Liter Flow Critical Value Sodium 138 Potassium 3.5 Chloride 103 Carbon Dioxide 26.3 Anion Gap 9 BUN 12 Creatinine 0.69 Estimated GFR Greater than 89 POC Glucose 230 H Random Glucose 231 H Osmolality 296 H Calcium 8.4 L Total Bilirubin AST ALT Alkaline Phosphatase Total Creatine Kinase 405 H CK-MB (CK-2) 3.2 CK-MB (CK-2) % 0.8 B-Natriuretic Peptide Total Protein Albumin 09/06/18 09/06/18 09/06/18 05:37 11:22 18:29 WBC RBC Hgb Hct MCV MCH MCHC RDW Plt Count MPV Prelim Diff (Auto) Neut % (Auto) Lymph % (Auto) [place] % (Auto) Eos % (Auto) Baso % (Auto) Neut # (Auto) Lymph # (Auto) [place] # (Auto) Eos # (Auto) Baso # (Auto) WBC Differential Seg Neuts % (Manual) Lymphocytes % (Manual) Monocytes % (Manual) Basophils % (Manual) Abs Neuts (Manual) Differential Comment Platelet Estimate Platelet Morphology RBC Morphology Puncture Site Patient Temperature O2 Saturation ABG pH ABG pCO2 ABG pO2 ABG HCO3 ABG O2 Content ABG Base Excess ABG Methemoglobin Edil Test Hemoglobin Carboxyhemoglobin O2 Delivery Device Liter Flow Critical Value Sodium Potassium Chloride Carbon Dioxide Anion Gap BUN Creatinine Estimated GFR POC Glucose 212 H 231 H 237 H Random Glucose Osmolality Calcium Total Bilirubin AST ALT Alkaline Phosphatase Total Creatine Kinase CK-MB (CK-2) CK-MB (CK-2) % B-Natriuretic Peptide Total Protein Albumin 09/06/18 09/07/18 09/07/18 21:13 00:02 04:28 WBC RBC Hgb Hct MCV MCH MCHC RDW Plt Count MPV Prelim Diff (Auto) Neut % (Auto) Lymph % (Auto) [place] % (Auto) Eos % (Auto) Baso % (Auto) Neut # (Auto) Lymph # (Auto) [place] # (Auto) Eos # (Auto) Baso # (Auto) WBC Differential Seg Neuts % (Manual) Lymphocytes % (Manual) Monocytes % (Manual) Basophils % (Manual) Abs Neuts (Manual) Differential Comment Platelet Estimate Platelet Morphology RBC Morphology Puncture Site Patient Temperature O2 Saturation ABG pH ABG pCO2 ABG pO2 ABG HCO3 ABG O2 Content ABG Base Excess ABG Methemoglobin Edil Test Hemoglobin Carboxyhemoglobin O2 Delivery Device Liter Flow Critical Value Sodium 138 138 Potassium Chloride Carbon Dioxide Anion Gap BUN Creatinine Estimated GFR POC Glucose 413 H Random Glucose Osmolality 288 285 Calcium Total Bilirubin AST ALT Alkaline Phosphatase Total Creatine Kinase CK-MB (CK-2) CK-MB (CK-2) % B-Natriuretic Peptide Total Protein Albumin 09/07/18 05:13 WBC RBC Hgb Hct MCV MCH MCHC RDW Plt Count MPV Prelim Diff (Auto) Neut % (Auto) Lymph % (Auto) [place] % (Auto) Eos % (Auto) Baso % (Auto) Neut # (Auto) Lymph # (Auto) [place] # (Auto) Eos # (Auto) Baso # (Auto) WBC Differential Seg Neuts % (Manual) Lymphocytes % (Manual) Monocytes % (Manual) Basophils % (Manual) Abs Neuts (Manual) Differential Comment Platelet Estimate Platelet Morphology RBC Morphology Puncture Site Patient Temperature O2 Saturation ABG pH ABG pCO2 ABG pO2 ABG HCO3 ABG O2 Content ABG Base Excess ABG Methemoglobin Edil Test Hemoglobin Carboxyhemoglobin O2 Delivery Device Liter Flow Critical Value Sodium Potassium Chloride Carbon Dioxide Anion Gap BUN Creatinine Estimated GFR POC Glucose 185 H Random Glucose Osmolality Calcium Total Bilirubin AST ALT Alkaline Phosphatase Total Creatine Kinase CK-MB (CK-2) CK-MB (CK-2) % B-Natriuretic Peptide Total Protein Albumin Result Diagrams: 09/06/18 05:15 09/07/18 04:28 Imaging: Impressions Chest CTA 09/05/18 00:00 CONCLUSION: 1. No CT evidence for pulmonary artery embolism to the proximal segmental branches. More distal segmental and subsegmental branches are incompletely evaluated. 2. [id number] amount of free intraperitoneal air in the visualized portions of the upper abdomen. Etiology is unclear on this exam. 3. Mild bibasilar airspace consolidation, presumably atelectasis. 4. Diffusely dilated fluid-filled esophagus. 5. Prominent coronary artery calcifications with postsurgical features of prior CABG. 6. Prominent hepatic steatosis. Head CT 09/05/18 00:00 CONCLUSION: 1. Limited evaluation of the posterior fossa due to patient motion. However, there are large regions of bilateral hemispheric hypodensities concerning for possible cerebellar hemispheric infarcts. Chronicity is uncertain given lack of prior exams and suboptimal visualization. MRI examination may be performed as clinically appropriate. 2. Moderate diffuse cerebral atrophy that is slightly more than expected for stated age. . Head MRI 09/05/18 00:00 CONCLUSION: Large bilateral acute cerebellar infarcts. Left-sided pontine acute infarct. Left-sided occipital lobe infarcts. Findings indicate multiple bilateral posterior distribution infarcts. No evidence of mass effect or midline shift. Head MRA 09/05/18 00:00 CONCLUSION: 1. Findings consistent with basilar artery thrombosis. Right TRUCKLOAD OWNER OPERATOR territory is spared due to origin. Findings were personally discussed at length with Dr. Doan. Neck MRA 09/05/18 00:00 CONCLUSION: 1. 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 The left vertebral artery is dominant. Standard 3 vessel arch anatomy. 2. No significant carotid flow-limiting stenosis. Percent stenosis is calculated using the diameter of the stenotic region over the diameter of the normal distal internal carotid artery Cerebral Angiography 09/05/18 18:46 CONCLUSION: 1. Unsuccessful recanalization of vertebral arteries and basilar segment. Head CT 09/06/18 05:00 CONCLUSION: 1. Evolving infarcts in both cerebellar hemispheres with mild mass effect. No hemorrhage. Small infarcts medial left occipital lobe and left ina. . Patient/Family Conference Issues Discussed: Brief meeting with , daughter, sister in law. Discussion included: * Palliative care role, purpose, approach * Additional medical, psychosocial,history * family understanding of the current medical problems * family understanding of prognosis * Patients goals of care/goals of medical tx, as best understood from advance directives and/or conversations and/or values * anticipatory guidance of compassionate withdrawal provided * Questions answered to the best of my ability * Palliative care contact information provided they have elected to proceed with companionate withdraw of life support based on pt known and written wishes. They would like to do this at 1pm today. Anticipatory guidance provided regarding withdrawal procedure and post withdrawal comfort measures. Briefly review hospice option if he survives beyond 24 hr. review prognosis, life expectancy probable hours to days. Limited exploration of psychosocial hx due to context of discussion. Timber Cutter support offered indicates they have clergy known to them coming, declines hospital reciprocating drill operator. d/w primary nurse, critical care attending. Exhibits b, c signed and in chart. Critical care will enter orders. Assessment and Plan Pertinent Non-Medical Issues: Psychosocial:Lived at home w prior to admission. Supported by daughter, sister in law. Spiritual:restoration family declines reciprocating drill operator, has outside support Legal:Patient ,due to clinical condition, is unable to participate in decision- making. Not expected to recover neurologic function. Per [place] statutes his Aydee would be appropriate proxy decision maker. Ethical issues impacting care:no ethical issues identified. Important Contacts: Aydee Duong [phone] Prognosis: This pt was admitted for colectomy for colon CA. During the days following suffered significant CVA, Large bilateral acute cerebellar infarcts. Left-sided pontine acute infarct. Left-sided occipital lobe infarcts. Findings indicate multiple bilateral posterior distribution infarcts. No evidence of mass effect or midline shift. intubated for airway protection. deteriorating neurological assessments. Likely to have significant cognitive, functional deficits going forward, would require trach/PEG. Would be expected to have ongoing sequelae from debility, dependent status. Plan: Legal decision maker: Patient ,due to clinical condition, is unable to participate in decision-making. Not expected to recover neurologic function. Per [place] statutes his Aydee would be appropriate proxy decision maker. Goals: , family have elected to proceed with companionate withdraw of life support based on pt known and written wishes. They would like to do this at 1pm today. Anticipatory guidance provided regarding withdrawal procedure and post withdrawal comfort measures. Briefly review hospice option if he survives beyond 24 hr. review prognosis, life expectancy probable hours to days. Timber Cutter support offered indicates they have clergy known to them coming , declines hospital reciprocating drill operator. d/w primary nurse, critical care attending. Exhibits b, c signed and in chart. Critical care will enter orders @ time of withdrawal CODE STATUS: DNR SYMPTOMS: --encephalopathy s/p CVA. + basilar artery thrombosis, IR thrombectomy attempted.Large bilateral acute cerebellar infarcts. Left-sided pontine acute infarct. Left-sided occipital lobe infarcts. Findings indicate multiple bilateral posterior distribution infarcts. No evidence of mass effect or midline shift/ intubated for airway protection. deteriorating neurological assessments. Likely to have significant cognitive, functional deficits . --dyspnea- intubated for airway protection. Overbreathing vent rate by a few. Would likely require tracheostomy for intermediate airway protection if continued aggressive medical treatment. Palliative care will continue to follow during hospital course as condition evolves, to assist patient/decision-maker with understanding of medical conditions, weighing benefits/burdens of treatment options, for clarification of goals of treatment. Additionally will assist with any symptoms of palliative concern Appreciation Thank you for the opportunity to participate in the care of Rashard Duong. Attestation Attestation: To help prompt me to consider important information that might be impacting today's encounter and assessment, information from prior notes written by myself or my colleagues may have been "brought forward" into today's note. My signature on this note, however, is an attestation that I personally performed the exam, history, and/or decision-making noted today, and, unless otherwise indicated, the interactions with patient, family, and staff as well as the review of records all occurred today. I also attest that the listed assessment and stated plan reflect my best clinical judgment today based on the combination of historical information, prior notes, and today's exam/ interactions. When time spent is documented, it refers only to time spent today by the signer, or if indicated, combined time spent today by collaborating physician/nurse practitioner.
[2018-09-07] MEDS: Levothyroxine 125 MCG Tablet PO SCH (13:10)
[2018-09-07] MEDS: amLODIPine 5 MG Tablet PO SCH (13:10)
[2018-09-07] MEDS: Pantoprazole Inj 40 MG Vial IV.PUSH SCH (13:10)
--- NOTE | 2018-09-07 13:12 | P.PNNS ---
Subjective Interval history: intubated, no sedation. minimal eye opening, not following for testing. no spontaneous movement. Physical Exam Vital signs: Vital Signs 09/06/18 14:00 09/06/18 16:00 09/06/18 17:34 Temperature 99.2 F Pulse Rate 40 L 50 L Respiratory Rate 14 15 Blood Pressure 164/78 H Pulse Oximetry 100 100 09/06/18 17:38 09/06/18 18:00 09/06/18 20:00 Temperature 99.9 F H Pulse Rate 54 L 54 L 60 Respiratory Rate 16 14 Blood Pressure 174/78 H Pulse Oximetry 100 09/06/18 20:24 09/06/18 22:00 09/06/18 23:40 Temperature Pulse Rate 56 L 54 L Respiratory Rate 15 15 Blood Pressure Pulse Oximetry 100 100 09/07/18 00:00 09/07/18 02:00 09/07/18 04:00 Temperature 97.7 F 98.8 F Pulse Rate 54 L 54 L 58 L Respiratory Rate 14 14 Blood Pressure 165/79 H 166/80 H Pulse Oximetry 100 100 09/07/18 04:07 09/07/18 06:00 09/07/18 08:23 Temperature Pulse Rate 60 60 Respiratory Rate 16 15 Blood Pressure Pulse Oximetry 100 100 09/07/18 09:06 09/07/18 11:18 Temperature Pulse Rate 60 Respiratory Rate 14 16 Blood Pressure Pulse Oximetry 100 Intake & Output 09/06/18 09/07/18 09/07/18 18:59 06:59 18:59 Intake Total 2360 / 2360 2046 / 2046 500 / 500 Output Total 2685 / 2685 60 / 60 Balance -325 / -325 1986 / 1986 500 / 500 Weight 99.4 kg Intake: IV 2300 / 2300 2046 / 204 500 / 500 Neosynephrine Inj 40 MG In D5W 1500 / 1500 500 / 500 Inj 496 ML @ 40 MCG/MIN 30 mls/ hr IV.CONT TITRATE PRN Rx#: [id number] Neosynephrine Inj 40 MG In NS 500 / 500 500 / 500 Inj 496 ML @ 40 MCG/MIN 30 mls/ hr IV.CONT TITRATE PRN Rx#: [id number] KCl Inj 20 MEQ In LR 1000 mL 800 / 800 Inj 1,000 ML @ 100 mls/hr IV. CONT .Q10H6M JOHN Rx#:[id number] Sodium Chloride 23.4% Inj 188 1047 / 1047 MEQ In NS Inj 1,000 ML @ 42 mls /hr IV.CONT .Q24H [facility] Rx#: [id number] Other 60 / 60 Output: Urine Amount (Catheter) 2650 / 2650 Indwelling Urethral Catheter 2650 / 2650 Wound Drainage 35 / 35 60 / 60 Right Abdomen ALEKSANDER Drain 35 / 35 60 / 60 Other: Date of Last Bowel Movement 09/02/18 09/02/18 # Bowel Movements 0 Narrative: intubated, sedation held. minimal eye opening to verbal stimuli not following commands no withdrawal to local pain x 4 extremities pupils 4 mm equal heart regular rate lungs clear - Urinary Catheter Management Indwelling Urethral Catheter Cath placed during this visit: yes Reason for continuing: Hourly intake/output Insertion date: 09/03/18 Insertion time: 13:46 Assessment and Plan - Plan 63 yo with basilar occlusion s/p unsuccessful thrombectomy, posterior fossa CVA -Repeat CT head demonstrates evolving posterior fossa infarcts with mild- moderate mass effect (effacement of sulci) but without evidence of herniation or brainstem compression (4th ventricle and cisterns open) Due to basilar occlusion and inability to successfully recannulate, patient with significant associated neurological morbidity (likely need for [facility] tracheostomy and PEG tube) and high mortality. Family reports patient would not want aggressive surgical intervention if it would not provide significant improvement in quality of life. Plan: cont q1 hour neuro checks critical care management palliative care following
[2018-09-07 13:22] VITALS: BP 123/68; PULSE 65; RESP 14; TEMP 98.2
[2018-09-07] MEDS ORDERED: HYDROmorphone PF Inj 1 MG/ML Ampul IV.PUSH PRN (13:51)
[2018-09-07] MEDS ORDERED: HYDROmorphone PF Inj 1 MG/ML Ampul IV.PUSH ONE ×2 (14:20)
[2018-09-07] MEDS ORDERED: Midazolam Inj 5 MG/ML 1 ML Vial IV.PUSH ONE ×2 (14:20)
--- NOTE | 2018-09-07 17:59 | P.DN ---
- Provider Primary care physician: Malik Jordan DO Consults: 09/05/18 06:14 Consult to Hospitalist Routine Consulting Provider: Sylvester Emery Reason for Consultation: medical management - Change in mental status Notified:: Service Spoke with:: Richi Date Notified:: 09/05/18 Time Notified:: 07:48 Comments:: waiting on assignment - ML Ordering Provider: DAVIDE 09/05/18 08:30 Consult to Neurology Routine Consulting Provider: Jennifer Gallegos Reason for Consultation: post op confusion/agitation Notified:: Service Spoke with:: Marimar Date Notified:: 09/05/18 Time Notified:: 08:45 Ordering Provider: DAVIDE 09/05/18 11:54 Consult to Cardiology Routine Consulting Provider: Herrera Fuentes Does the patient have a Silk Printer who follows them?: Yes Preferred Registered Nurse Practitioner:: Herrera Fuentes Reason for Consultation: ST dep with obtundation 2 days post op Notified:: Service Spoke with:: Ulices Date Notified:: 09/05/18 Time Notified:: 12:07 Ordering Provider: NELL 09/05/18 14:34 Consult to Substation Operator Transforming Stat Consulting Provider: Robby Rowe For STAT consult, spoke directly to:: Dr. Doan Reason for Consultation: encephalopathy; obtundation Notified:: Service Spoke with:: Obdulia Date Notified:: 09/05/18 Time Notified:: 14:38 Ordering Provider: NELL 09/05/18 18:32 Consult to Neurosurgery Routine Consulting Provider: Joseph Appiah Reason for Consultation: basilar artery stroke. please eval for prophylactic or early decompressive crani Notified:: Physician Spoke with:: Dr. Appiah Date Notified:: 09/05/18 Time Notified:: 18:59 Ordering Provider: DANIEL 09/06/18 15:07 Consult to Palliative Care Routine Consulting Provider: Brigette De Leon Reason for Consultation: basilar artery stroke Notified:: Service Spoke with:: DENISE Date Notified:: 09/06/18 Time Notified:: 15:09 Ordering Provider: DANIEL 09/07/18 10:49 HUB Only Consult Order Routine Consulting Provider: [facility] Reason for Consultation: ltac referral Pronouncing clinician: Robby Rowe - Admitting Diagnosis (1) Cancer of sigmoid colon (2) Basilar artery embolism (3) Abnormal EKG (4) CAD (coronary artery disease) - Diagnosis at Time of (1) Cancer of sigmoid colon Diagnosis: Principal (2) Basilar artery embolism Diagnosis: Principal (3) Abnormal EKG Diagnosis: Secondary (4) CAD (coronary artery disease) Diagnosis: Secondary - Date and Time Date of admission: 09/03/18 12:03 Date of : 09/07/18 Time of : 15:13 - Summary Procedures: s/p colectomy Brief History: This is a 63-year-old male who is postop day 2 status post colectomy for colon cancer. Postop day 1 he was quite agitated and was started on a [place] protocol. He continues to be agitated and then became quite altered and then obtunded. Emergent CT head demonstrates questionable hypodensities in the posterior fossa. He arrives to the ICU for higher level of care. I evaluated the patient on immediate arrival to the ICU. He was quite obtunded and altered only responsive to sternal rub. I discussed his care with the hospitalist attending. I also discussed his care with his who is concerned about his acute change in mentation. We proceeded with emergent intubation. 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 I discussed the case extensively with the interventional neuroradiology team as well as neurosurgery, neurology, cardiology, and his primary surgery team. Given subacute nature of the stroke and that it may be greater than 24 hours out, we consented the for the high risk of hemorrhagic conversion with intervention, but then proceeded with endovascular emergent intervention. No additional information is available the patient due to his somnolence. Review of systems is unobtainable. Result Diagrams: 09/06/18 05:15 09/07/18 04:28 Significant Findings: Abnormal Lab Results 09/06/18 09/06/18 09/07/18 18:29 21:13 00:02 Sodium 138 POC Glucose 237 H 413 H Osmolality 288 09/07/18 09/07/18 04:28 05:13 Sodium 138 POC Glucose 185 H Osmolality 285 Hospital Course: This is a 63-year-old male who is postop day 2 status post colectomy for colon cancer. Postop day 1 he was quite agitated and was started on a [place] protocol. He continues to be agitated and then became quite altered and then obtunded. Emergent CT head demonstrates questionable hypodensities in the posterior fossa. He arrives to the ICU for higher level of care. I evaluated the patient on immediate arrival to the ICU. He was quite obtunded and altered only responsive to sternal rub. I discussed his care with the hospitalist attending. I also discussed his care with his who is concerned about his acute change in mentation. We proceeded with emergent intubation. 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 I discussed the case extensively with the interventional neuroradiology team as well as neurosurgery, neurology, cardiology, and his primary surgery team. Given subacute nature of the stroke and that it may be greater than 24 hours out, we consented the for the high risk of hemorrhagic conversion with intervention, but then proceeded with endovascular emergent intervention. No additional information is available the patient due to his somnolence. Review of systems is unobtainable. 09/06: unable to retrieve basilar clot. prognosis now grave. discussed with IR and nsgy: best served without any further aggressive care, as best outcome now would likely be persistent vegetative state. would like to make the patient DNR. 09/07: now posturing. remains bradycardic. still breaths over the vent. pupils still 2mm and reactive. poor prognosis. family planning on withdraw of care today.
--- NOTE | 2018-09-17 12:36 | MD ---
cc: Kenji Corley MD, Alexander S MD Peterson,Malik Angel MD,Joseph Lin MD DATE OF DISCHARGE: 09/07/2018 SUMMARY DATE OF : 09/07/2018 ADMITTING DIAGNOSIS: Near obstructing sigmoid colon cancer. DIAGNOSIS AT : Sigmoid colon carcinoma, resected on 09/03/2018 and basilar artery CVA history. HISTORY: This patient was in the hospital in May in the emergency department with abdominal pain. A CT scan was done. It seemed to show diverticulitis. He continued to have poor bowel habits and he was referred to gastroenterology for a colonoscopy. Dr. Sparks attempted a colonoscopy on him about a month prior to this admission, he had a near obstructing lesion in the sigmoid colon that was quite bulky. He was unable to pass a lesion and complete the colonoscopy. The patient was scheduled for a sigmoid resection. Preoperative CT scan of the chest was obtained, which showed 2 small lesions in the lung and they recommended followup in a year with a CT scan. They were too small to characterize. His abdominal CT scan did not seem to show any metastasis to the liver. The patient had diabetes mellitus and hypertension and previous coronary artery bypass grafting. He also was morbidly obese. HOSPITAL COURSE: The patient was admitted to the hospital on 09/03/2018 and underwent a full left colectomy with low anterior resection, intraoperative colonoscopy with mobilization of the splenic flexure and omental flap. At surgery, exploration of the abdominal cavity revealed that there was a bulky distal sigmoid colon carcinoma with some tortuosity stuck to the left pelvic sidewall. The tumor was resected en bloc with the left pelvic sidewall and possibly the left anterior vas deferens or left seminal vesicle. The right seminal vesicle was identified and was left intact. The anastomosis was done at approximately 10 cm of the rectum, just at or above the cul-de-sac. The remainder of the abdominal exploration including the gallbladder, the colon, the small bowel and the liver was all palpably normal. The liver was enlarged and fibrotic consistent with cirrhosis of the liver, either from fatty infiltrate or alcohol usage. Biopsy of the liver was not done. On the first postoperative day, the patient was seen by me early in the morning on 09/04/2018. At that time, he had no nausea, no vomiting. His pain was controlled at that time. His abdomen at that time was soft. He had moderate tenderness. His dressing was dry. Transfer orders were written to the seventh floor and because of his diabetes and elevated blood sugar, his dextrose was removed from his intravenous fluids and his insulin coverage was increased. His PARTS COUNTER SALES PERSON was scheduled to be discontinued the following morning as was his [place]. He was started on a clear liquid diet; that was at approximately 7:00 a.m. Later in the day the patient had some diplopia and confusion. I was called by the nurse and she felt that it had passed and he had some anxiety and the patient felt better. That evening and the following morning, the patient was somewhat confused and was seen by my partner, Dr. Acuna, who obtained a consultation with neurology. Consultation was done by Dr. Jennifer Gallegos on 09/05/2018. He was somewhat confused at that time and his PARTS COUNTER SALES PERSON pump had been stopped. He had been getting some Ativan written per [facility] protocol for possible alcohol withdrawal symptoms. His white blood cell count was 19,300, his hemoglobin was 13.3, platelets were 219,000. His hematocrit was 38.7. Dr. Gallegos recommended an EEG and a CT scan of the brain without contrast and to hold any pain medication. She recommended using Ativan p.r.n. for agitation or withdrawal symptoms, which was already ordered. If the patient remains agitated for the next 24 hours, an MRI of the brain would be obtained. On her examination, he was confused, but arousable, following commands, squeezed with both hands, was able to wiggle his toes and state his name as well as his 's name, but could not name the hospital. He was somnolent and fell back asleep. He was able to move and withdrawal all 4 extremities and follow commands. Cerebellar and gait could not be assessed. Dr. Gallegos felt that since he was moving everything, a stroke was a less likely of a concern. CT scan was eventually obtained as was a CT angiogram to rule out pulmonary embolism. A CT scan was done at 12:28 p.m. There were no prior exams for comparison. There was a limited evaluation of the posterior fossa due to patient motion; however, there are large regions of bilateral hemispheric hypodensities concerning for possible cerebellar hemispheric infarcts; chronicity was uncertain. MRI examination was recommended. There was moderate diffuse cerebral atrophy that was slightly more than expected for his age. It was felt that the patient did have a basilar artery CVA and MRI showed findings consistent with basilar artery thrombosis and were personally discussed at length with the parking worker, Dr. Doan. Once this was done, interventional radiology was consulted and Dr. Cabrera saw the patient and attempted basilar artery arteriogram to remove the clot; however, it was unsuccessful. Neurosurgery was consulted as well to see if anything could be done. It was felt that a neurosurgical intervention could not be helpful. He was also seen by Dr. Fuentes of the cardiology department. He had a previous cardiac catheterization on 11/09/2017 showing LAD with diffuse 70% disease with 100% occlusion in the mid portion, the left circumflex was small, obtuse marginal was 100% occluded, second obtuse marginal showed 70% disease and a small vessel. Right coronary artery was normal size with 90% occlusion and he had previous coronary artery bypass grafting x4. Once it was determined that the patient was having an extensive basilar stroke, the critical care physicians, Dr. Doan talked to the family and it was decided to withdrawal treatment. The patient remained ventilated and the patient eventually was pronounced at 1513 hours on 09/07/2018. MD FLAKITA Burnett/sincere , 11:01 PM , 11:15 PM
== END 2018-09-07 19:00 | disposition expired ==
LOC: HSDI 12:03 → HCPC 19:42 → N07 09-04 17:39 → N03 09-05 13:47
PROVIDERS: ADMIT Colon & Rectal Surgery; ATTEND Colon & Rectal Surgery